=== PATIENT | male | born 1940 | race Caucasian/White ===

== ENCOUNTER 2017-05-26 08:34 | Outpatient (CLI) | payer MEDICARE ==
[2017-05-26] MEDS ORDERED: Iopamidol 370 76% 100 ML VIAL ONE (13:18)
--- NOTE | 2017-05-26 13:23 | CT ---
CT THORAX WITH IV CONTRAST: CT ABDOMEN AND PELVIS WITH IV CONTRAST: 05/26/2017 HISTORY: Follow up lung cancer as well as colon cancer. CEA numbers have increased. History of left lower l srinivasa removal, as well as colon resection. COMPARISON: PET CT on 09/10/[address] thorax on 08/26/[address] abdomen and pelvis on 08/22/2016. FINDINGS: THORAX: Post surgical changes related to median sternotomy and CABG are again noted. Post surgical changes related to a left lower lobectomy are noted with surgical changes in the left hilar region, with post surgical changes involving the left sided ribs. Previously noted left lower lobe mass is not seen related to left lobectomy. There has been interva l development of multiple bilateral pulmonary nodules, with the largest pulmonary nodule in the supe rior segment of the right lower lobe, measuring 9 mm. The largest pulmonary nodule seen in the left lower lobe measures 11 mm. There has been interval development of an enlarged subcarinal lymph node, which measures 5.1 cm cran iocaudal x 2.4 cm transverse x 1.4 cm AP. No additional enlarged mediastinal, axillary, or hilar ly mph nodes are seen. There are mild emphysematous changes in the upper lobes, greater on the right. ABDOMEN AND PELVIS: Again noted is cholelithiasis. Subcentimeter, [id number], hypodense lesion is seen in the right hepatic lobe, stable from the prior exam. Low density area seen within the more posterior aspect of the medial segment, left hepatic lobe, which is probably volume averaging, although a subtle subcentimeter hypodense le rafaela cannot be entirely excluded. There is a lobulated appearance of each kidney, but the kidneys otherwise have a normal and stable a ppearance from prior exam. The spleen, pancreas, bilateral adrenal glands, opacified bowel, and urinary bladder demonstrate a n ormal CT appearance. Again noted is evidence of post colon resection. Anastomosis is seen in the region of the rectosigm oid junction with small bowel colonic anastomosis in the right upper quadrant. 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 The prostate gland remains enlarged and heterogeneous in appearance. There are fat containing bilateral inguinal hernias again identified. Distal to the anastomotic suture line, within the rectosigmoid region, there is suggested eccentric thickening at the left aspect of the rectum. A developing neoplastic process in this region cannot be entirely excluded, given asymmetry, compared to the remainder of the wall of the remaining colon. A few scattered colonic diverticula are seen. IMPRESSION: 1. Mild eccentric thickening involving the left aspect of the rectum, below the anastomotic suture line. A developing neoplastic process in this region cannot be excluded. Direct visualization is s uggested. 2. Metastatic disease with interval development of multiple bilateral pulmonary nodules, as well as an enlarged subcarinal lymph node. 3. Post surgical changes related to left lower lobectomy, as well as post surgical changes related to coronary artery bypass grafting and partial colon resection. 4. Additional incidental findings are as described above. POS: [facility]
== END 2017-05-26 08:35 | disposition home or self-care (01) ==
LOC: CT 08:34
PROVIDERS: ATTEND Internal Medicine Hematology & Oncology
DX: C34.90 Malignant neoplasm of unspecified part of unspecified bronchus or lung (principal); C18.0 Malignant neoplasm of cecum
CPT/HCPCS: 71260; 74177

== ENCOUNTER → 2017-06-13 | Day surgery (SDC) | payer MEDICARE ==
[2017-06-12 16:58] VITALS: BMI 29.1
[~2017-06-13] MED LIST: CEFAZOLIN/Water 2 GM/20 ML SYRINGE ONE; Fentanyl 100 MCG/2 ML VIAL ONE; Glycopyrrolate 0.2 MG/ML 5 ML SYRINGE ONE; Lidocaine 1% PF 5 ML VIAL ONE; Ondansetron HCl/PF 4 MG/2 ML Vial ONE; Propofol 200 MG/20 ML VIAL ONE; ePHEDrine/0.9% NaCl/PF SYRINGE 50 mg/10 ml ONE
[2017-06-13 06:42] LABS: #Basophils 0.1 thou/uL (0.0-0.2); #Eosinphils 0.4 thou/uL (0.0-0.7); #Lymphocytes 1.2 thou/uL (1.20-3.40); #Monocytes 0.9 thou/uL (0.11-0.59); #Neutrophils 4.2 thou/uL (1.40-6.50); %Basophils 1.1 % (0.0-1.0); %Eosinophils 5.5 % (0.0-10.0); %Monocytes 13.3 % (0.0-10.0); Hematocrit 41.1 % (42.0-52.0); Mean Platelet Volume 6.1 fL (7.4-10.4); Red Blood Cell (RBC) Count 4.14 mill/uL (4.70-6.10); White Blood Cell (WBC) Count 6.7 thou/uL (4.8-10.8)
[2017-06-13 06:54] LABS: Anion Gap 13 mmol/L (10-20); BUN (Urea Nitrogen) 17 mg/dL (8.4-25.7); Calc. Creatinine Clearance 67 mL/min (70-130); Calcium 9.1 mg/dL (7.8-10.44); Carbon Dioxide 21 mmol/L (23-31); Chloride 103 mmol/L (98-107); Estimated GFR-MDRD 69
--- NOTE | 2017-06-13 12:01 | OP ---
PREOPERATIVE DIAGNOSIS: Subcarinal mediastinal adenopathy. POSTOPERATIVE DIAGNOSIS: Subcarinal mediastinal adenopathy. PROCEDURE: Cervical mediastinal exploration with biopsies. SURGEON: Skip Haas M.D. ANESTHESIA: General. ESTIMATED BLOOD LOSS: Less than 5 mL. PROCEDURE IN DETAIL: After adequate anesthesia had been obtained, the patient had a right shoulder r oll placed and the head was left on a pillow. He was prepped and draped. Suprasternal notch incisio n was then made and carried down through the midline bluntly and sharply to the level of the trachea where blunt finger dissection into the mediastinum was carried out. Mediastinoscope was then inserte d following which the dissection was carried down to the jeff. After identifying right and left ma in stem bronchi, lymph node was identified that was firm. It was mobilized to some degree with a kristi nt dissection and then after aspirating for blood. Multiple biopsies were obtained. Frozen section returned to carcinoma. Hemostasis was obtained and after checking this, the scope was removed and th e wound was closed in layers.
--- NOTE | 2017-06-18 08:37 | EKG ---
Test Reason : PREOP Blood Pressure : / mmHG Vent. Rate : 069 BPM Atrial Rate : 069 BPM P-R Int : 184 ms QRS Dur : 132 ms QT Int : 418 ms P-R-T Axes : 041 -37 112 degrees QTc Int : 447 ms Normal sinus rhythm Left axis deviation Non-specific intra-ventricular conduction block T wave abnormality, consider anterolateral ischemia Abnormal ECG When compared with ECG of 28-SEP-2016 17:11, QRS axis Shifted left Confirmed by Anne-Marie MARTÍNEZ ([id number]) on 06/18/2017 8:37:25 AM Referred By: MARÍA ELENA Confirmed By:Anne-Marie MARTÍNEZ
== END ==
LOC: SDC 05:52
PROVIDERS: ATTEND Thoracic Surgery (Cardiothoracic Vascular Surgery)
PROC: 0WBC4ZX Excision of Mediastinum, Percutaneous Endoscopic Approach, Diagnostic (ICD-10-PCS; principal; 2017-06-13)
DX: C38.3 Malignant neoplasm of mediastinum, part unspecified (principal); E11.9 Type 2 diabetes mellitus without complications; E78.5 Hyperlipidemia, unspecified; I10 Essential (primary) hypertension; J44.9 Chronic obstructive pulmonary disease, unspecified; Z79.84 Long term (current) use of oral hypoglycemic drugs; Z79.82 Long term (current) use of aspirin; Z79.899 Other long term (current) drug therapy; Z91.041 Radiographic dye allergy status; Z95.1 Presence of aortocoronary bypass graft; Z90.49 Acquired absence of other specified parts of digestive tract; Z90.2 Acquired absence of lung [part of]; Z98.890 Other specified postprocedural states; Z87.01 Personal history of pneumonia (recurrent); Z87.891 Personal history of nicotine dependence
CPT/HCPCS: 36415; 80048; 85025; 88307; 88331; 93005; 93010; J2001; J2405; J2704; J3010

== ENCOUNTER 2017-07-31 12:57 | Emergency (ER) | payer MEDICARE ==
[2017-07-31] MEDS ORDERED: predniSONE 20 MG TAB ONE (13:22)
--- NOTE | 2017-07-31 14:20 | RAD ---
CHEST TWO VIEWS: History: 77-year-old male with shortness of breath, difficulty breathing. History of COPD. History of colon ca rcinoma with metastases to both lungs. Comparison: Chest CT, 05-26-17. FINDINGS: Post underlying sternotomy. Numerous bilateral pulmonary metastases have increased in size and number from the prior CT of 05-26-17. Bilateral pleural effusions, slightly greater on the left side, have d eveloped. Mild cardiomegaly. Mild bilateral vascular congestion. IMPRESSION: Increase in size and number of multiple bilateral pulmonary metastases. Developing bilateral pleural effusions. Developing bilateral vascular congestion with minimal cardiomegaly. POS: [facility]
== END 2017-07-31 15:08 | disposition home or self-care (01) ==
LOC: SCSER 12:57
DX: C34.90 Malignant neoplasm of unspecified part of unspecified bronchus or lung (principal); J44.9 Chronic obstructive pulmonary disease, unspecified; E11.9 Type 2 diabetes mellitus without complications; E78.5 Hyperlipidemia, unspecified; I10 Essential (primary) hypertension; Z87.891 Personal history of nicotine dependence; E87.1 Hypo-osmolality and hyponatremia
CPT/HCPCS: 71046; 93005; 94640; J7506; J7620

== ENCOUNTER 2017-08-12 22:18 | Inpatient (IN) | payer MEDICARE ==
[2017-08-12 22:48] LABS: #Basophils 0.1 thou/uL (0.0-0.2); #Eosinphils 0.6 thou/uL (0.0-0.7); #Monocytes 1.1 thou/uL (0.11-0.59); #Neutrophils 6.2 thou/uL (1.40-6.50); %Basophils 1.5 % (0.0-1.0); %Eosinophils 6.4 % (0.0-10.0); %Lymphocytes 11.3 % (21.0-51.0); %Monocytes 11.9 % (0.0-10.0); %Neutrophils 68.8 % (42.0-75.0); Hemoglobin 14.9 g/dL (14.0-18.0); Mean Corpuscular HGB CONC 33.3 g/dL (32.0-36.0); Mean Corpuscular Hemoglobin 31.5 pg (27.0-31.0); Mean Corpuscular Volume 94.4 fl (80.0-94.0); Mean Platelet Volume 5.3 fL (7.4-10.4); Platelet Count 310 thou/uL (130-400); RBC Distribution Width 11.8 % (11.5-14.5); Red Blood Cell (RBC) Count 4.72 mill/uL (4.70-6.10)
--- NOTE | 2017-08-12 22:59 | RAD ---
PORTABLE CHEST: 08/12/17 HISTORY: Shortness of breath. Exam is suboptimal due to poor positioning and motion artifact. COMPARISON: Comparison made to chest film of 07/31/17. There is almost complete opacification of the left hemithorax seen on the current study which is a ne w finding when compared to the prior exam. There is cardiomegaly with vascular congestion and probabl y some interstitial edema in the right lung. Postop sternotomy change. IMPRESSION: Limited exam due to poor positioning and motion artifact. There is now new opacification in the left hemithorax when compared to the prior study. There are numerous nodular densities in the right lung w hich were described previously as probable metastatic lesions. Congestive changes are again noted. POS: [facility]
[2017-08-12 23:02] LABS: ALT (SGPT) 22 U/L (8-55); AST (SGOT) 14 U/L (5-34); Alkaline Phosphatase 63 U/L (40-150); Anion Gap 15 mmol/L (10-20); BUN (Urea Nitrogen) 14 mg/dL (8.4-25.7); Bilirubin, Total 0.3 mg/dL (0.2-1.2); CK (CPK) 52 U/L (30-200); Calc. Creatinine Clearance 0 mL/min (70-130); Calcium 9.5 mg/dL (7.8-10.44); Carbon Dioxide 26 mmol/L (23-31); Chloride 94 mmol/L (98-107); Estimated GFR-MDRD 64; Globulin 2.6 g/dL (2.4-3.5); Glucose 169 mg/dL (83-110); Potassium 4.6 mmol/L (3.5-5.1); Protein, Total 6.6 g/dL (5.8-8.1); Sodium 130 mmol/L (136-145)
[2017-08-12 23:03] LABS: CKMB 1.3 ng/mL (0-6.6); Troponin I Less than 0.010 ng/mL (< 0.028)
[2017-08-12] MEDS ORDERED: Furosemide 40 MG/4 ML VIAL ONE (23:42)
[2017-08-13] MEDS ORDERED: Ondansetron HCl/PF 4 MG/2 ML Vial IVP PRN ×2 (00:46→01:43)
[2017-08-13] MEDS ORDERED: Ondansetron ODT 4 MG TAB SL PRN (00:46)
[2017-08-13] MEDS ORDERED: Acetaminophen 325 MG TAB PO PRN ×2 (00:46→01:43)
[2017-08-13 01:02] VITALS: BMI 28.3
[2017-08-13] MEDS ORDERED: Insulin Regular 300 UNITS/3 ML VIAL SC PRN (01:43)
[2017-08-13] MEDS ORDERED: Nitroglycerin 0.4 MG TAB (25 Tab Bottle) PO PRN (01:43)
[2017-08-13] MEDS ORDERED: Ondansetron ODT 4 MG TAB PO PRN (01:43)
[2017-08-13] MEDS ORDERED: Dextrose 5% in Water 1,000 ML IV PRN (01:43)
[2017-08-13] MEDS ORDERED: Dextrose 50% Abboject 50 ML SYRINGE SLOW IVP PRN (01:43)
[2017-08-13] MEDS ORDERED: Senokot 8.6 MG TAB PO PRN (01:43)
[2017-08-13 02:29] LABS: Troponin I Less than 0.010 ng/mL (< 0.028)
[2017-08-13 05:00] LABS: #Basophils 0.1 thou/uL (0.0-0.2); #Eosinphils 0.6 thou/uL (0.0-0.7); #Lymphocytes 0.9 thou/uL (1.20-3.40); #Monocytes 1.2 thou/uL (0.11-0.59); #Neutrophils 7.4 thou/uL (1.40-6.50); %Basophils 0.6 % (0.0-1.0); %Eosinophils 5.8 % (0.0-10.0); %Lymphocytes 9.3 % (21.0-51.0); %Monocytes 11.6 % (0.0-10.0); %Neutrophils 72.7 % (42.0-75.0); Hemoglobin 13.9 g/dL (14.0-18.0); Mean Corpuscular HGB CONC 33.1 g/dL (32.0-36.0); Mean Corpuscular Hemoglobin 32.7 pg (27.0-31.0); Mean Corpuscular Volume 98.7 fl (80.0-94.0); Mean Platelet Volume 6.2 fL (7.4-10.4); Platelet Count 323 thou/uL (130-400); RBC Distribution Width 12.2 % (11.5-14.5); Red Blood Cell (RBC) Count 4.26 mill/uL (4.70-6.10); White Blood Cell (WBC) Count 10.1 thou/uL (4.8-10.8)
[2017-08-13 05:13] LABS: Albumin 3.7 g/dL (3.4-4.8); Anion Gap 15 mmol/L (10-20); BUN (Urea Nitrogen) 12 mg/dL (8.4-25.7); BUN/Creatinine Ratio 13.79; Calc. Creatinine Clearance 81 mL/min (70-130); Calcium 8.9 mg/dL (7.8-10.44); Carbon Dioxide 23 mmol/L (23-31); Chloride 96 mmol/L (98-107); Estimated GFR-MDRD 85; Glucose 156 mg/dL (83-110); Magnesium 1.8 mg/dL (1.6-2.6); Phosphorus 2.8 mg/dL (2.3-4.7); Potassium 3.7 mmol/L (3.5-5.1); Sodium 130 mmol/L (136-145)
--- NOTE | 2017-08-13 05:16 | HP ---
DATE OF ADMISSION: 08/12/2017 The patient was seen and examined on 08/13/2017 around 01:00 a.m. The patient got admitted from [facility] ER. CODE STATUS: FULL CODE, confirmed with the patient. SURROGATE DECISION-MAKER: Patient makes his own decisions with the help of his . CHIEF COMPLAINT: Shortness of breath of 2 weeks' duration. HISTORY OF PRESENT ILLNESS: The patient is a 77-year-old male with adenocarcinoma of the lung; coron rikki artery disease; diabetes mellitus, type 2; COPD with chronic respiratory failure, on home oxygen; presented to the emergency room at [place] with above complaints. The patient was seen in the emergency room on 08/10/2017 for similar complaint. A chest x-ray at [facility] t time showed multiple bilateral pulmonary metastases with developing bilateral pleural effusion. He was discharged home at that time. The patient returned to the emergency room today due to worsening shortness of breath that got worse over the last 2-3 days to the extent that he was short of breath at rest. He is normally on 3 liters oxygen. He tried increasing the oxygen to 5 liters without significant help. He also uses nebulize r treatment every 4 hours. He had some cough, which was essentially nonproductive. The shortness of breath was also worse on lying down. He was placed on nonrebreather in the emergency room. His O2 saturation in the ER was 76% on 4 liter nasal cannula. Chest x-ray done in the emergency room today was consistent with new opacification of the left hemithorax compared to the study from 12 days ago. He received Lasix 40 mg along with DuoNeb in the emergency room. PAST MEDICAL HISTORY: 1. Non-small cell lung cancer. 2. Chronic obstructive pulmonary disease. 3. Chronic respiratory failure, on home oxygen 3-3.5 liters. 4. Hypertension. 5. Diabetes mellitus, type 2. 6. Colon cancer, status post colectomy. 7. Hypertension. 8. Dyslipidemia. PAST SURGICAL HISTORY: 1. CABG in 1992 with redo CABG in 2002. 2. Appendectomy. 3. Herniography. 4. Cardiac catheterization. 5. Left inguinal hernia repair. 6. Laparoscopic partial colectomy in 07/2016. 7. Left lower lobectomy in 09/2016.. 8. Mediastinal exploration with biopsy in 05/2017. ALLERGIES: The patient is allergic to IODINE. CURRENT HOME MEDICATIONS: Amlodipine 2.5 mg daily, aspirin 81 mg daily, carvedilol 12.5 mg b.i.d., Z yrtec 10 mg daily, vitamin D3 2000 units daily, glucosamine 1 capsule daily, lisinopril 5 mg at bedti me, metformin 500 mg b.i.d., multivitamin 1 tablet daily, Actos 30 mg daily, simvastatin 10 mg at bed time, Incruse Ellipta 1 inhalation daily. SOCIAL HISTORY: Patient currently lives at home, is a former smoker. No alcohol or drug use. FAMILY HISTORY: Negative for premature coronary artery disease. REVIEW OF SYSTEMS: The following complete review of systems was negative, unless otherwise mentioned in the HPI or below: Constitutional: Weight loss or gain, ability to conduct usual activities. Sk in: Rash, itching. Eyes: Double vision, pain. ENT/Mouth: Nose bleeding, neck stiffness, pain, te nderness. Cardiovascular: Palpitations, dyspnea on exertion, orthopnea. Respiratory: Shortness of breath, wheezing, cough, hemoptysis, fever, or night sweats. Gastrointestinal: Poor appetite, abdo eugenio pain, heartburn, nausea, vomiting, constipation, or diarrhea. Genitourinary: Urgency, frequen cy, dysuria, nocturia. Musculoskeletal: Pain, swelling. Neurologic/Psychiatric: Anxiety, depressi on. Allergy/Immunologic: Skin rash, bleeding tendency. PHYSICAL EXAMINATION: VITAL SIGNS: As discussed above. His temperature was 97.8, respirations 24, pulse rate of 80 with a blood pressure 157/84. GENERAL: A 77-year-old male in mild respiratory distress, able to complete short sentences. Overall , feels better after ER treatment. HEENT: Head atraumatic, normocephalic. Sclerae are anicteric. Moist mucous membranes. No oral les ion. NECK: Supple, no JVD appreciated. No carotid bruit. LUNGS: Showed decreased breath sounds on the left with scattered rhonchi mainly on the right. No si gnificant wheezing noted. There was decreased chest movement on the left. They were done notes on p ercussion on the left. HEART: S1, S2 present. Regular rate and rhythm. Healed midline scar from previous CABG. No heaves or pulsation. ABDOMEN: Soft, nontender, bowel sounds present. EXTREMITIES: No edema or calf tenderness. NEUROLOGIC: Grossly nonfocal, moves all 4 extremities. PSYCHIATRY: Alert, awake, oriented x3. SKIN: Warm and dry. LYMPH NODES: No palpable lymph nodes in the neck. PERIPHERAL VASCULAR: Radial pulses palpable bilaterally. MUSCULOSKELETAL: No joint swelling or tenderness. LABORATORY FINDINGS: CBC showed WBC 9.0 with hemoglobin 14.9, hematocrit 44.5, platelet 310. Chemis tries showed sodium 130, potassium 4.6, chloride 94, bicarbonate 26, BUN 14, creatinine 1.12, glucose of 169. Chest x-ray, by my review, as discussed above. EKG, by my review, showed sinus rhythm with left axis deviation with some nonspecific ST-T wave changes. IMPRESSION AND PLAN: 1. Acute on chronic hypoxic respiratory failure secondary to left-sided pleural effusion. 2. History of lung adenocarcinoma, followed by Dr. De La Rosa. 3. Coronary artery disease, status post myocardial infarction and coronary artery bypass grafting in the past. 4. Hypertension. 5. Diabetes mellitus, type 2. 6. Chronic obstructive pulmonary disease. 7. Chronic respiratory failure, on 3-3.5 liters oxygen. 8. Chronic anemia. 9. History of colon cancer, status post resection. 10. Hyponatremia. 11. Chronic kidney disease, stage 2. PLAN: The patient will be monitored in the intermediate care unit. We will continue nonrebreather f or now. The patient may need intermittent noninvasive positive pressure ventilation. We will consul t Dr. Scott in a.m. He will probably get thoracentesis. Pleural effusion appears to be malignant. We will hold aspirin for now. Insulin sliding scale will be started. Selected home medications will be resumed. We will hold diuretics for now. He received a dose of Lasix in the emergency room. Co ntinue carvedilol. Plan of care was discussed with the patient. He stated understanding. The patie nt will require 2-3 days for stabilization.
[2017-08-13] MEDS: Insulin Regular 300 UNITS/3 ML VIAL SC PRN (06:17)
[2017-08-13] MEDS ORDERED: Ipratropium Bromide 2.5 ml Neb NEB SCH (07:00)
[2017-08-13] MEDS: Loratadine 10 MG TAB PO SCH (08:36)
[2017-08-13] MEDS: Multivit, Therapeutic 1 TAB PO SCH (08:36)
[2017-08-13] MEDS: Famotidine 20 MG TAB PO SCH ×2 (08:37→21:46)
[2017-08-13] MEDS: Amlodipine 5 MG TAB PO SCH (08:37)
[2017-08-13] MEDS: Docusate 100 MG CAP PO SCH ×2 (08:38→21:46)
[2017-08-13] MEDS: Carvedilol 6.25 MG TAB PO SCH ×2 (08:38→15:57)
[2017-08-13] MEDS ORDERED: Non-Formulary Item 1 EACH (Umeclidinium Bromide [Incruse Ellipta] 1 INH) IH SCH (09:00)
[2017-08-13] MEDS ORDERED: guaiFENesin/Codeine Phosphate 200 mg/20 mg 10 ml UD Cup PO PRN (13:12)
[2017-08-13] MEDS ORDERED: cefTRIAXone\\ROCEPHIN 1 GM in Sodium Chloride 0.9% 100 ML IVPB SCH (14:45)
[2017-08-13] MEDS ORDERED: diphenhydrAMINE 50 MG CAP PO SCH (15:45)
[2017-08-13] MEDS ORDERED: cefTRIAXone\\ROCEPHIN 1 GM, Syringe 0.4 ML in Sterile Water 9.6 ML SLOW IVP SCH ×2 (16:00→21:00)
[2017-08-13] MEDS ORDERED: Lisinopril 5 MG TAB PO SCH (21:00)
[2017-08-13] MEDS ORDERED: Simvastatin 20 MG TAB PO SCH (21:00)
--- NOTE | 2017-08-14 00:30 | CON ---
DATE OF CONSULTATION: 08/13/2017 SUBJECTIVE: Mr. Lorenzana is a pleasant 77-year-old male. I met with the and asked to get history from her. He was recently in the hospital for evaluatio n in the emergency department with complaints of shortness of breath. He was sent home and has had p rogressive decline in his dyspnea. He has been seen by me in the past after a lung mass was found during workup for colon cancer. Lung mass was resected after colon cancer was resected. He subsequently presented with mediastinal metastasis and worked up with mediastinal. It was felt to have multiple pulmonary nodules in both lungs that were all malignant. Last chest radiograph showed this. He presented this admission with dyspnea and hypoxemia. Chest ra diograph shows what appears to be atelectasis of the left lung, although it is difficult to say wheth er this is atelectasis or an effusion. His trachea is pulled to the left, I am guessing it is atelec tasis. It would be very unusual for a massive effusion reaccumulate in less than 2 weeks. PAST MEDICAL HISTORY: Remarkable for hypertension, diabetes, lipid disorder, coronary artery bypass grafting in 1992 and 2002, appendectomy, herniorrhaphy, colectomy in 08/09, left lower lobectomy in 0 09/2016, this was a T2 M0 tumor, this is a a 6 cm tumor, but was noted negative. On 05/2017, he had a CME. He reports allergy to IODINE. He was on amlodipine, aspirin, Coreg, Zyrtec, glucosamine, vitamin D, lisinopril, metformin, Actos, s imvastatin, Incruse. SOCIAL HISTORY: He is a former smoker, does not drink, does not use drugs. FAMILY HISTORY: Negative for lung disease at an early age. REVIEW OF SYSTEMS: Remarkable only for shortness of breath on exertion and a cough. He has had no f ever, chills, sweats. He denies hemoptysis. PHYSICAL EXAMINATION: VITAL SIGNS: He is afebrile, heart rate is 92, blood pressure 129/81, respiratory rate teens to low 20s, oximetry 100% on 3 liters. HEENT: Pupils are equal. Sclerae is anicteric. NECK: Supple. LUNGS: Remarkable for distant breath sounds on the left. HEART: Regular rhythm. S1 and S2 are normal. ABDOMEN: Soft and nontender. EXTREMITIES: Without asymmetry. LABORATORY DATA: White count 10.1, hemoglobin 13.9, platelets 323. Sodium 130, potassium 3.7, chlor patricia 96, bicarbonate 23, BUN 12, creatinine 0.87. IMPRESSION: 1. Metastatic lung cancer. 2. T4M0 colon cancer, resected. 3. ?Atelectasis of left lung. CT imaging after he gets prophylaxis for an IODINE allergy, will be t he next step, workup will be entertained. He tells me there is no treatment plan. He has been unabl e to get approval for Keytruda. I would be happy to see him while he is in the hospital and evaluate him for endobronchial obstruction. I doubt this is a massive effusion. If it is, he will need obvi ously thoracentesis and perhaps even a pleural drainage catheter. This is a 50 minute consult, greater than 50% of the time was spent on the unit coordinating care, re viewing records from radiographs and labs.
[2017-08-14] MEDS ORDERED: predniSONE 50 MG TAB PO SCH (04:00)
[2017-08-14 04:21] LABS: #Basophils 0.1 thou/uL (0.0-0.2); #Lymphocytes 0.6 thou/uL (1.20-3.40); #Monocytes 0.2 thou/uL (0.11-0.59); #Neutrophils 7.4 thou/uL (1.40-6.50); %Basophils 0.6 % (0.0-1.0); %Eosinophils 0.4 % (0.0-10.0); %Neutrophils 89.9 % (42.0-75.0); Hemoglobin 14.9 g/dL (14.0-18.0); Mean Corpuscular HGB CONC 33.8 g/dL (32.0-36.0); Mean Corpuscular Hemoglobin 33.8 pg (27.0-31.0); Mean Corpuscular Volume 99.9 fl (80.0-94.0); Mean Platelet Volume 6.3 fL (7.4-10.4); Platelet Count 343 thou/uL (130-400); RBC Distribution Width 12.3 % (11.5-14.5); White Blood Cell (WBC) Count 8.2 thou/uL (4.8-10.8)
[2017-08-14 04:49] LABS: Albumin 4.2 g/dL (3.4-4.8); Anion Gap 15 mmol/L (10-20); BUN (Urea Nitrogen) 14 mg/dL (8.4-25.7); BUN/Creatinine Ratio 16.87; Calc. Creatinine Clearance 81 mL/min (70-130); Calcium 9.7 mg/dL (7.8-10.44); Carbon Dioxide 23 mmol/L (23-31); Chloride 96 mmol/L (98-107); Estimated GFR-MDRD 90; Glucose 181 mg/dL (83-110); Phosphorus 2.8 mg/dL (2.3-4.7); Potassium 4.4 mmol/L (3.5-5.1); Sodium 130 mmol/L (136-145)
[2017-08-14] MEDS: Insulin Regular 300 UNITS/3 ML VIAL SC PRN ×2 (06:31→10:58)
[2017-08-14] MEDS: Famotidine 20 MG TAB PO SCH (07:57)
[2017-08-14] MEDS: Carvedilol 6.25 MG TAB PO SCH (07:57)
[2017-08-14] MEDS: Amlodipine 5 MG TAB PO SCH (07:58)
[2017-08-14] MEDS: Multivit, Therapeutic 1 TAB PO SCH (07:58)
[2017-08-14] MEDS: Docusate 100 MG CAP PO SCH (07:58)
[2017-08-14] MEDS: Loratadine 10 MG TAB PO SCH (07:58)
--- NOTE | 2017-08-14 10:29 | CT ---
PRELIMINARY REPORT/[facility]/EMERGENCY AFTER HOURS PROCEDURE: EXAM: CT Angiography Chest With Intravenous Contrast EXAM DATE/TIME: Exam ordered 08/14/2017 5:04 AM CLINICAL HISTORY: 77 years old, male; Signs and symptoms; Shortness of breath; Patient HX: SOB, R/O pe TECHNIQUE: Axial computed tomographic angiography images of the chest with intravenous contrast using pulmonary embolism protocol. CONTRAST: 100 mL of ISOVUE administered intravenously. COMPARISON: No relevant prior studies available. FINDINGS: Pulmonary arteries: There is no evidence of peripheral filling defects within the pulmonary arterial circulation to suggest pulmonary embolism. Aorta: The aorta is normal. There is no evidence of aortic dissection, leak, rupture, or other compli cations. Lungs: There are innumerable pulmonary nodules consistent with lung metastases. Moderate centrilobula r emphysematous changes are present. Pleural space: Normal. No significant effusion. No pneumothorax. Heart: Normal. No cardiomegaly. No significant pericardial effusion. No evidence of RV dysfunction. Thyroid: The thyroid gland is normal. Bones/joints: No acute fracture. No dislocation. Soft tissues: Normal. Lymph nodes: Pathologically enlarged mediastinal lymph nodes are present. For example there is a 1.4 cm RIGHT paratracheal lymph node. There is also a 1.7 x 3.2 cm subcarinal/anterior tracheal region po ssibly representing enlarged lymph node or duplication cyst. Gallbladder and bile ducts: A calcified gallstone is present. IMPRESSION: 1. There is no CT evidence of acute pulmonary embolism. 2. There are innumerable pulmonary nodules consistent with lung metastases. 3. Mediastinal lymphadenopathy as above. Thank you for allowing us to participate in the care of your patient. Dictated and Authenticated by: Franklyn Cisneros MD 08/14/2017 5:42 AM Central Time ([place] & [place]) FINAL REPORT EMERGENCY AFTER HOURS CT ANGIO CHEST: Date: 08/14/17 FINDINGS: I agree with the preliminary report given by [facility]. No definite central or segmental pulmonary embolus is grossly evident. Motion artifact from breathing slightly limits image detail of the segmental pul monary vasculature of both lower lobes as well as portions of the lingula and right middle lobe. Ther e are numerous pulmonary nodules seen throughout both lungs that have [facility] consistent with worsening metastatic disease. There is worsening ly mphadenopathy within the mediastinum and hilar region suspicious for worsening, malignant lymphadenop athy. There are small bilateral pleural effusions that have developed in the interim. Gallstone is se en within the upper abdomen within the gallbladder lumen. IMPRESSION: 1. No evidence to suggest central pulmonary embolus. Some limitations to the CT examination of the t horax as detailed above. 2. Worsening pulmonary metastatic disease and mediastinal lymphadenopathy. 3. Cholelithiasis. 4. New bilateral pleural effusions, left greater than right. POS: [facility]
[2017-08-14 11:11] VITALS: BP 133/81; TEMP 97.2
--- NOTE | 2017-08-14 13:23 | PRG ---
DATE OF SERVICE: 08/14/[address] was reviewed. By this morning his atelectasis of his left lung had resolved. Mu ltiple pulmonary nodules and small bilateral effusions were noted. He says he feels 100% better. He is stable for him to go home with nebulized ipratropium and albuter ol 4 times a day, prednisone 40 mg for 4 days, 20 for 6 days, and 10 mg for 10 days, p.o. antibiotics , Ceftin 250 mg twice a day, Restoril 15mg for sleep since he cannot sleep when he is on steroids. I will see him in the office in 1 week.
--- NOTE | 2017-08-15 10:25 | DIS ---
DATE OF DISCHARGE: 08/14/2017 DISCHARGE DISPOSITION: Home. FOLLOWUP: Follow up with primary care physician, Dr. Chris Coon in 1 week. Follow up with Dr. Pringle after a week. ALLERGIES: The patient is allergic to IODINE. DISCHARGE MEDICATIONS: 1. Prednisone as directed. 2. Ceftin 250 mg b.i.d. 3. DuoNeb as needed. 4. Restoril as needed. 5. Other home medications were resumed including amlodipine 2.5 mg daily, aspirin 81 mg daily, carve dilol 12.5 mg b.i.d., Zyrtec 10 mg daily, vitamin D3 2000 units daily, glucosamine 1 tablet daily, li sinopril 5 mg at bedtime, Metformin extended release 500 mg b.i.d., multivitamin 1 capsule daily, Act os 30 mg daily, simvastatin 10 mg at bedtime, Incruse 62.5 mcg inhalation daily. The patient was seen on the day of discharge, denies any new complaints, feels much better. His oxyg en saturation is 99% on 3 liter nasal cannula with a blood pressure of 133/81. BRIEF HOSPITAL COURSE: The patient is a 77-year-old male with adenocarcinoma of the lung, coronary a rtery disease, diabetes mellitus type 2, COPD with chronic respiratory failure, on home oxygen, prese nted to the hospital with shortness of breath of 2 weeks' duration. His chest x-ray on admission stacey wed left-sided pleural effusion. Please refer to the history and physical dated 08/10/2017 for furth er details. The patient was admitted to the Intermediate Care Unit with a diagnosis of respiratory failure. He w as started on nebulizer treatment. The next day the patient was evaluated by Pulmonary, Dr. Scott. He was started on steroids with antibiotics. A CT scan of the chest was done that showed worsening o f pulmonary metastatic disease with mediastinal lymphadenopathy with new bilateral pleural effusions, left greater than right. His symptoms have significantly improved. Dr. Scott has cleared the patie nt for discharge. He will follow up with Dr. Scott next week. FINAL DIAGNOSES: 1. Acute on chronic hypoxic respiratory failure secondary to left-sided pleural effusion, improved. There was no need for thoracentesis per Pulmonary. 2. History of lung adenocarcinoma followed by Dr. De La Rosa. 3. Coronary artery disease, status post myocardial infarction and coronary artery bypass graft in th e past. 4. Hypertension. 5. Diabetes mellitus type 2. 6. Chronic obstructive pulmonary disease. 7. Chronic respiratory failure on 3 to 3-1/2 liters of oxygen. 8. Chronic anemia. 9. History of colon cancer, status post resection. 10. Hyponatremia. 11. Chronic kidney disease stage 2. Plan of care was discussed with the patient in detail. He stated understanding.
== END 2017-08-14 13:29 | disposition home or self-care (01) | DRG 189 ==
LOC: SCSER 22:18 → IMCU/EMU 23:11
PROVIDERS: ADMIT Internal Medicine; ATTEND Internal Medicine
DX: J96.21 Acute and chronic respiratory failure with hypoxia (principal); C78.1 Secondary malignant neoplasm of mediastinum; C77.8 Secondary and unspecified malignant neoplasm of lymph nodes of multiple regions; C34.91 Malignant neoplasm of unspecified part of right bronchus or lung; Z99.81 Dependence on supplemental oxygen; J90 Pleural effusion, not elsewhere classified; D64.9 Anemia, unspecified; C34.92 Malignant neoplasm of unspecified part of left bronchus or lung; E87.1 Hypo-osmolality and hyponatremia; J98.11 Atelectasis; J44.9 Chronic obstructive pulmonary disease, unspecified; E11.9 Type 2 diabetes mellitus without complications; N18.2 Chronic kidney disease, stage 2 (mild); I12.9 Hypertensive chronic kidney disease with stage 1 through stage 4 chronic kidney disease, or unspecified chronic kidney disease; I25.10 Atherosclerotic heart disease of native coronary artery without angina pectoris; I25.2 Old myocardial infarction; E78.5 Hyperlipidemia, unspecified; Z85.038 Personal history of other malignant neoplasm of large intestine; Z90.49 Acquired absence of other specified parts of digestive tract; Z95.1 Presence of aortocoronary bypass graft; Z91.09 Other allergy status, other than to drugs and biological substances; Z79.82 Long term (current) use of aspirin
CPT/HCPCS: 36415; 36416; 71045; 71275; 80053; 80069; 82553; 83735; 84484; 85025; 93005; 94640; 96374; A4216; J0696; J1940; J7620

== ENCOUNTER 2017-08-22 10:03 | Outpatient (CLI) | payer MEDICARE ==
--- NOTE | 2017-08-22 11:05 | RAD ---
CHEST TWO VIEWS: History: Dyspnea. Comparison: 08-12-17 FINDINGS: Cardiac silhouette is enlarged. Pulmonary vasculature remains slightly engorged. Left pleural fluid h as decreased significantly since the prior study with re-aeration of the left lung. Mediastinum is mi dline with aortic calcification and post-operative changes. Patchy areas of infiltrate throughout the right lung have increased slightly. There is a small amount of right pleural fluid. IMPRESSION: 1. Significant internal decrease left pleural fluid with re-expansion of the left lung. 2. Patchy infiltrate throughout the right lung has progressed slightly. Small right pleural effusion. POS: [facility]
== END 2017-08-22 10:04 | disposition home or self-care (01) ==
LOC: RAD 10:03
PROVIDERS: ATTEND Internal Medicine Critical Care Medicine
DX: R06.00 Dyspnea, unspecified (principal); R91.8 Other nonspecific abnormal finding of lung field; J90 Pleural effusion, not elsewhere classified
CPT/HCPCS: 71046

== ENCOUNTER 2017-08-30 19:28 | Inpatient (IN) | payer MEDICARE, OTHER ==
[2017-08-30 20:20] LABS: #Basophils 0.1 thou/uL (0.0-0.2); #Lymphocytes 0.5 thou/uL (1.20-3.40); #Monocytes 0.4 thou/uL (0.11-0.59); #Neutrophils 8.1 thou/uL (1.40-6.50); %Basophils 0.6 % (0.0-1.0); %Eosinophils 0.4 % (0.0-10.0); %Lymphocytes 5.3 % (21.0-51.0); %Monocytes 4.7 % (0.0-10.0); %Neutrophils 88.9 % (42.0-75.0); Hemoglobin 14.3 g/dL (14.0-18.0); Mean Corpuscular HGB CONC 34.3 g/dL (32.0-36.0); Mean Corpuscular Hemoglobin 32.7 pg (27.0-31.0); Mean Corpuscular Volume 95.3 fl (80.0-94.0); Mean Platelet Volume 6.4 fL (7.4-10.4); Platelet Count 274 thou/uL (130-400); Red Blood Cell (RBC) Count 4.37 mill/uL (4.70-6.10); White Blood Cell (WBC) Count 9.1 thou/uL (4.8-10.8)
[2017-08-30 20:32] LABS: ALT (SGPT) 15 U/L (8-55); AST (SGOT) 10 U/L (5-34); Albumin 3.5 g/dL (3.4-4.8); Alkaline Phosphatase 59 U/L (40-150); Anion Gap 13 mmol/L (10-20); BUN (Urea Nitrogen) 17 mg/dL (8.4-25.7); Bilirubin, Total 0.4 mg/dL (0.2-1.2); Calc. Creatinine Clearance 0 mL/min (70-130); Calcium 8.9 mg/dL (7.8-10.44); Carbon Dioxide 29 mmol/L (23-31); Chloride 93 mmol/L (98-107); Estimated GFR-MDRD Greater than 90; Globulin 2.5 g/dL (2.4-3.5); Glucose 212 mg/dL (83-110); Potassium 4.7 mmol/L (3.5-5.1); Sodium 130 mmol/L (136-145)
[2017-08-30 20:36] LABS: CKMB 1.4 ng/mL (0-6.6); Troponin I Less than 0.010 ng/mL (< 0.028)
--- NOTE | 2017-08-30 21:16 | RAD ---
TWO VIEW CHEST: 08/30/17 HISTORY: Dyspnea. Correlation made to recent chest film of 08/22/[address] of 08/14/17. FINDINGS/IMPRESSION: The left pleural effusion has increased since the 08/22/17 exam. There is now moderately large left pl eural effusion. There continues to be bilateral patchy alveolar infiltrates. These were present previously but appear s slightly more extensive today especially in the right mid and lower lung field. POS: [facility]
[2017-08-30 23:27] VITALS: BMI 29.8
[2017-08-31 00:15] LABS: Troponin I Less than 0.010 ng/mL (< 0.028)
[2017-08-31 02:42] LABS: Troponin I Less than 0.010 ng/mL (< 0.028)
--- NOTE | 2017-08-31 05:46 | PDOC.EVN ---
Event Note - Event Note Event Note: Patient seen and examined. Note dicated. Full code. DPAO - self/family
[2017-08-31] MEDS ORDERED: Ondansetron ODT 4 MG TAB PO PRN (05:51)
[2017-08-31] MEDS ORDERED: Calcium Carbonate 500 MG ChewTAB PO PRN (05:51)
[2017-08-31] MEDS ORDERED: Nitroglycerin 0.4 MG TAB (25 Tab Bottle) PO PRN (05:51)
[2017-08-31] MEDS ORDERED: Ondansetron HCl/PF 4 MG/2 ML Vial IVP PRN (05:51)
[2017-08-31] MEDS ORDERED: cloNIDine 0.1 MG TAB PO PRN (05:55)
--- NOTE | 2017-08-31 06:10 | HP ---
DATE OF ADMISSION: 08/30/2017 PRIMARY CARE PHYSICIAN: Dr. Chris Coon. PRIMARY INFORMATION SYSTEMS AUDITOR: Dr. Scott. CHIEF COMPLAINT: Shortness of breath. HISTORY OF PRESENT ILLNESS: Patient is a 77-year-old male with COPD, chronic respiratory failure on home oxygen, non-small cell lung cancer who presented to the emergency room with worsening shortness of breath over the last 3-4 days duration. Patient was admitted at this facility from 08/12/2017 to 08/14/2017 with shortness of breath. He was discharged home on prednisone taper. Over the last 2-3 weeks, the patient has shortness of breath that is progressively getting worse. Ov er the last 2-3 days, the patient is not able to move around due to oxygen desaturation. He has been spending most of his time on the recliner. He also had some cough productive of thick whitish phleg m. He also had wheezing along with some chest tightness. He denies any orthopnea or paroxysmal noct urnal dyspnea. He had some leg swelling, especially towards the end of the day. He denies any sick contacts or fever. In the emergency room, his chest x-ray was consistent with left pleural effusion that has increased s maria elena 08/22/2017 exam. He also had some bilateral patchy alveolar infiltrates, which were present pre viously, but appeared more extensive on the repeat x-ray today. He received DuoNeb in the emergency room. PAST MEDICAL HISTORY: 1. Non-small cell lung cancer, currently followed by Dr. De La Rosa. 2. Chronic obstructive pulmonary disease. 3. Chronic respiratory failure, on home oxygen 3-3.5 liters. 4. Hypertension. 5. Diabetes mellitus type 2. 6. Colon cancer, status post colectomy. 7. Dyslipidemia. PAST SURGICAL HISTORY: 1. Coronary artery bypass grafting in 1992 with a redo CABG in 2002. 2. Hernia surgery. 3. Appendectomy. 4. Cardiac catheterization. 5. Inguinal hernia repair. 6. Laparoscopic partial colectomy. 7. Left lower lobectomy. 8. Mediastinal exploration with biopsy. ALLERGIES: Patient is allergic to IODINE. CURRENT HOME MEDICATIONS: Per [facility], amlodipine 2.5 mg daily, aspirin 81 mg daily, carvedilol 12. 5 mg b.i.d., Zyrtec 10 mg daily, vitamin D3 2000 units daily, glucosamine 1 capsule daily, DuoNeb as needed, lisinopril 5 mg at bedtime, metformin 500 mg b.i.d., multivitamin 1 tablet daily, Actos 30 mg daily, prednisone dose unavailable, simvastatin 10 mg at bedtime, Incruse Ellipta 62.5 mcg daily, te mazepam 15 mg at bedtime p.r.n. SOCIAL HISTORY: Patient currently lives at home. He is a former smoker. Denies any alcohol or drug use. FAMILY HISTORY: Negative for premature coronary artery disease. REVIEW OF SYSTEMS: The following complete review of systems was negative, unless otherwise mentioned in the HPI or below: Constitutional: Weight loss or gain, ability to conduct usual activities. Skin: Rash, itching. Eyes: Double vision, pain. ENT/Mouth: Nose bleeding, neck stiffness, pain, tenderness. Cardiovascular: Palpitations, dyspnea on exertion, orthopnea. Respiratory: Shortness of breath, wheezing, cough, hemoptysis, fever or night sweats. Gastrointestinal: Poor appetite, abdominal pain, heartburn, nausea, vomiting, constipation, or diarr hea. Genitourinary: Urgency, frequency, dysuria, nocturia. Musculoskeletal: Pain, swelling. Neurologic/Psychiatric: Anxiety, depression. Allergy/Immunologic: Skin rash, bleeding tendency. PHYSICAL EXAMINATION: VITAL SIGNS: As discussed above. GENERAL: A 77-year-old male in no apparent distress. Feels somewhat better after nebulizer treatmen t. HEENT: Head is atraumatic, normocephalic. Sclerae are anicteric. Moist mucous membranes. No oral lesion. NECK: Supple, no JVD appreciated. No carotid bruit. LUNGS: Showed expiratory wheezing, which is scattered with diminished air entry at bases, left more than right. CARDIOVASCULAR: Heart S1, S2 present. Regular rate and rhythm. No rubs or gallops appreciated. He aled midline scar from previous CABG. ABDOMEN: Soft, nontender, bowel sounds present. EXTREMITIES: Trace edema in bilateral lower extremities. SKIN: Warm and dry. LYMPH NODES: No palpable lymph nodes in the neck. PERIPHERAL VASCULAR: Radial pulses palpable bilaterally. MUSCULOSKELETAL: No joint swelling or tenderness. LABORATORY DATA AND X-RAY FINDINGS: 1. CBC showed WBC of 9.1 with hemoglobin 14.3, hematocrit 41.7, platelet of 274. 2. D-dimer was 1.59. Chemistries showed sodium 130, potassium 4.7, chloride 93, bicarbonate 29, BUN 17, creatinine 0.8. 3. Troponins were negative. 4. Chest x-ray by my review as discussed above. EKG by my review showed sinus rhythm with nonspecif ic ST-T wave changes. IMPRESSION: 1. Respiratory distress secondary to chronic obstructive pulmonary disease exacerbation. 2. Left-sided pleural effusion. 3. Lung adenocarcinoma followed by Dr. De La Rosa. 4. Coronary artery disease, status post myocardial infarction and coronary artery bypass graft in past. 5. Diabetes mellitus type 2. 6. Chronic respiratory failure, on home oxygen. 7. Hypertension. 8. Chronic anemia. 9. History of colon cancer, status post resection. 10. Chronic hyponatremia. 11. Chronic kidney disease stage 3. PLAN: The patient is currently admitted on the telemetry unit. Home medications will be resumed. Nataly Scott will be consulted. Nebulizer treatments. We will resume home dose of prednisone. We will hold IV steroids for now. Hold antibiotics for now. Plan of care was discussed with the patient in detail. He stated understanding.
--- NOTE | 2017-08-31 08:27 | ULT ---
EXAM: BILATERAL LOWER EXTREMITY VENOUS ULTRASOUND WITH DOPPLER: HISTORY: Leg edema. COMPARISON: None. TECHNIQUE: Sneed scale, color flow, Doppler imaging with spectral waveform analysis is performed of the left and right lower extremity system. FINDINGS: Bilaterally, there is compressibility, presence of flow, and augmentation in the common femoral vein, femoral vein, and proximal vein. There is flow in bilateral greater saphenous veins, profunda veins , and posterior tibial veins. IMPRESSION: No evidence of thrombus of right or left lower extremity venous system. POS: DUSTY
[2017-08-31] MEDS: Amlodipine 5 MG TAB PO SCH (08:52)
[2017-08-31] MEDS: Pioglitazone HCl 15 MG TAB PO SCH (08:52)
[2017-08-31] MEDS: metFORMIN XR 500 MG TAB PO SCH ×2 (08:52→20:35)
[2017-08-31] MEDS: Carvedilol 6.25 MG TAB PO SCH ×2 (08:52→18:36)
[2017-08-31] MEDS: predniSONE 20 MG TAB PO SCH (08:53)
[2017-08-31] MEDS: Aspirin 81 mg Enteric Coated Tablet PO SCH (08:53)
[2017-08-31] MEDS: Docusate 100 MG CAP PO SCH ×2 (08:53→20:35)
[2017-08-31] MEDS: Famotidine 20 MG TAB PO SCH ×2 (08:53→20:35)
[2017-08-31] MEDS: Loratadine 10 MG TAB PO SCH (08:53)
[2017-08-31] MEDS: Multivitamin W/ Minerals 1 TAB PO SCH (08:53)
[2017-08-31] MEDS ORDERED: VIT C CA PO SCH (09:00)
[2017-08-31] MEDS ORDERED: Non-Formulary Item 1 EACH (Umeclidinium Bromide [Incruse Ellipta] 1 INH) IH SCH (09:00)
[2017-08-31] MEDS ORDERED: GLUC SU PO SCH (09:00)
[2017-08-31] MEDS ORDERED: CHONDRO SU A PO SCH (09:00)
[2017-08-31] MEDS ORDERED: [UNRECOGNIZED DRUG - OTHER] PO SCH (09:00)
[2017-08-31] MEDS ORDERED: Cetirizine HCl 10 MG TAB PO SCH (09:00)
--- NOTE | 2017-08-31 15:55 | PDOC.EVN ---
Event Note - Event Note Event Note: Chart reviewed. Pt seen, will follow.
[2017-08-31] MEDS ORDERED: Lidocaine 1% (PF) 30 ML VIAL ONE (17:12)
[2017-08-31 19:10] LABS: BF Color Yellow; BF RBC Count - Manual 1875 /cumm; Body Fluid Source PLEURAL FLUID; Clarity Hazy (Clear); RBC Background Count 0.004; Tube # EDTA; WBC/NonHematic-Auto 501 /cumm
[2017-08-31 19:27] LABS: BF Segmented Neutrophils 22 %; Cell Count Non Hematic 38 %; Lymphocytes 40 %
--- NOTE | 2017-08-31 20:08 | CON ---
DATE OF CONSULTATION: 08/31/2017 SERVICE: Pulmonary Medicine. REASON FOR CONSULTATION: Pleural effusion. HISTORY OF PRESENT ILLNESS: The patient is a 77-year-old white male with past medical history significant for COPD and adenocarcinoma of the lung, which is widely metastatic. He has had a pleural effusion that has been present on a couple of imaging studies and progressively getting larger. The patient also notes increasing dyspnea with exertion. He had episodes of hypoxemia and was subsequently brought to the hospital. He has been given some nebulized medications and steroids. He has had a significant improvement in his breathing. Overall, he denies any fevers, chills, nausea, vomiting or chest discomfort. PAST MEDICAL HISTORY: 1. Adenocarcinoma of the lung, widely metastatic. 2. Chronic obstructive pulmonary disease. 3. Chronic hypoxic respiratory failure, requiring 3 liters nasal cannula at home. 4. Hypertension. 5. Dyslipidemia. 6. Type 2 diabetes mellitus. 7. History of colon cancer, status post colectomy. PAST SURGICAL HISTORY: 1. Coronary artery bypass graft. 2. Redo coronary artery bypass graft. 3. Herniorrhaphy. 4. Appendectomy. 5. Cardiac catheterization. 6. Inguinal hernia repair. 7. Laparoscopic partial colectomy. 8. Left lower lobectomy. 9. Mediastinoscopy with biopsy. ALLERGIES: IODINE. MEDICATIONS: List of his inpatient medications were reviewed. No specific updates were made. The patient indicates taking Plavix, but I do not see it on the home medication list and is not currently listed as an inpatient medication. Either way, if he took it at home, the last dose was yesterday. SOCIAL HISTORY: He lives at home with his . He is an avid bowler. He uses his left arm for bowling. He has a history of smoking, but does not do anything currently. He denies any alcohol or illicit drug use. He has no exposure to chemicals, dust, asbestosis or tuberculosis FAMILY HISTORY: Noncontributory. REVIEW OF SYSTEMS: General, head, ears, eyes, nose, throat, cardiovascular, respiratory, GI, , musculoskeletal, neurologic and skin is negative except as mentioned in the HPI. PHYSICAL EXAMINATION: VITAL SIGNS: Afebrile, pulse 92, blood pressure 127/82, respirations 22, saturation 92% on 3 liters nasal cannula. GENERAL: This patient is awake, alert, in no apparent distress. LUNGS: Reduced air entry on the left. There is a prolonged expiratory phase and polyphonic wheezing. Crackles are evident. HEART: Normal rate, regular. ABDOMEN: Soft, nontender, nondistended. Bowel sounds are positive. MUSCULOSKELETAL: No cyanosis or clubbing. No pitting in the bilateral lower extremities. NEUROLOGIC: Grossly nonfocal. LABORATORY DATA: WBC 9.1, hemoglobin 14.3, platelets 274,000. D-dimer 1.59. Cardiac enzymes are negative x3. BNP 83. Liver function studies and basic metabolic profile are unremarkable. IMAGIN. Ultrasound of the bilateral lower extremities demonstrates no evidence of deep vein thrombosis. 2. Chest x-ray demonstrates interval enlargement in the left side pleural effusion. ASSESSMENT: 1. Acute on chronic hypoxic respiratory failure. 2. Adenocarcinoma of the lung, widely metastatic. 3. Pleural effusion on the left, enlarging. 4. History of left lower lobectomy. 5. Chronic obstructive pulmonary disease with acute exacerbation. PLAN: We will put the patient on very low dose of steroids, and frequent nebulized medications. We will continue our antibiotics. I am going to do a diagnostic and therapeutic thoracentesis. If this is helpful, and the patient has malignant cells in this fluid, the next time he has recurrence of fluid, he may be a good candidate for PleurX catheter placement that we may need to take care not to put the tube in place that would affect the swing of his left arm during bowling if possible as this is one of the things that the patient really truly enjoys doing. Pulmonary Critical Care will continue to follow, but Dr. Scott will assume care in the morning. 70 minutes have been devoted to this patient in various activities. I personally reviewed all imaging studies and laboratory data noted within this document. For at least half of this time, I was interacting with the patient at the bedside or coordinating care with the care team. For the remainder of the time I was immediately available to the patient in the hospital unit. LUIS ENRIQUE
[2017-08-31] MEDS: Simvastatin 20 MG TAB PO SCH (20:34)
[2017-08-31] MEDS: Benzonatate 100 MG CAP PO PRN (20:35)
[2017-08-31] MEDS: Lisinopril 5 MG TAB PO SCH (20:35)
--- NOTE | 2017-08-31 23:34 | OP ---
DATE OF SERVICE: 08/31/2017 SERVICE: Pulmonary Medicine. PROCEDURE: Left-sided pleural drainage with catheter insertion under ultrasound guidance. CONSENT: Risks and benefits of this procedure were explained to the patient. All questions were ans wered and alternative options explained. STAFF PHYSICIAN: Luca Rhodes M.D. MEDICATIONS USED: Lidocaine 1% without epinephrine, total quantity 8 mL PREOPERATIVE DIAGNOSES: 1. Acute hypoxic respiratory failure. 2. Pleural effusion. POSTPROCEDURE DIAGNOSES: 1. Acute hypoxic respiratory failure. 2. Pleural effusion. DESCRIPTION OF PROCEDURE: A timeout was performed by the procedure team and the patient. The patien t was positively identified using name and date of . The procedure site was marked. Vital sign monitoring was accomplished by noninvasive hemodynamic monitoring, pulse oximetry, and telemetry. I n the seated position, the left posterior hemithorax was examined using ultrasound probe. The diaphr agm and pleural fluid were easily identified. The skin was prepped and draped in sterile fashion and anesthetized with 1% lidocaine without epinephrine. A finder needle was inserted into the pleural s pace with return of cloudy straw colored fluid. The pleural drainage catheter was inserted in the sa me location and a total quantity of 1800 mL of fluid was withdrawn by syringe pump technique. [facility]. Evacuation of fluid was terminated because we arrived at -20 cm of pleural fluid pressure. The intact catheter was withdrawn on exhalation and a sterile dressing was applied. The patient had stable vital signs throughout the entire procedure. ESTIMATED BLOOD LOSS: 1 mL COMPLICATIONS: None.
[2017-09-01 05:27] LABS: #Eosinphils 0.4 thou/uL (0.0-0.7); #Lymphocytes 0.9 thou/uL (1.20-3.40); #Monocytes 1.3 thou/uL (0.11-0.59); #Neutrophils 8.5 thou/uL (1.40-6.50); %Basophils 0.4 % (0.0-1.0); %Eosinophils 3.3 % (0.0-10.0); %Lymphocytes 7.9 % (21.0-51.0); %Monocytes 11.7 % (0.0-10.0); %Neutrophils 76.7 % (42.0-75.0); Hemoglobin 14.1 g/dL (14.0-18.0); Mean Corpuscular HGB CONC 33.5 g/dL (32.0-36.0); Mean Corpuscular Hemoglobin 33.7 pg (27.0-31.0); Mean Platelet Volume 6.3 fL (7.4-10.4); Platelet Count 272 thou/uL (130-400); RBC Distribution Width 12.2 % (11.5-14.5); Red Blood Cell (RBC) Count 4.19 mill/uL (4.70-6.10); White Blood Cell (WBC) Count 11.1 thou/uL (4.8-10.8)
[2017-09-01 05:35] LABS: Anion Gap 11 mmol/L (10-20); BUN (Urea Nitrogen) 13 mg/dL (8.4-25.7); Calc. Creatinine Clearance 86 mL/min (70-130); Calcium 8.9 mg/dL (7.8-10.44); Carbon Dioxide 30 mmol/L (23-31); Chloride 92 mmol/L (98-107); Estimated GFR-MDRD Greater than 90; Glucose 163 mg/dL (83-110); Potassium 4.4 mmol/L (3.5-5.1); Sodium 129 mmol/L (136-145)
[2017-09-01] MEDS: Carvedilol 6.25 MG TAB PO SCH ×2 (08:10→17:06)
[2017-09-01] MEDS: Multivitamin W/ Minerals 1 TAB PO SCH (08:11)
[2017-09-01] MEDS: Amlodipine 5 MG TAB PO SCH (08:11)
[2017-09-01] MEDS: predniSONE 20 MG TAB PO SCH (08:13)
[2017-09-01] MEDS: Furosemide 40 MG TAB PO SCH (08:13)
[2017-09-01] MEDS: Famotidine 20 MG TAB PO SCH ×2 (08:13→19:10)
[2017-09-01] MEDS: Docusate 100 MG CAP PO SCH ×2 (08:13→19:10)
[2017-09-01] MEDS: Loratadine 10 MG TAB PO SCH (08:13)
[2017-09-01] MEDS: Aspirin 81 mg Enteric Coated Tablet PO SCH (08:14)
[2017-09-01] MEDS: Pioglitazone HCl 15 MG TAB PO SCH (08:39)
[2017-09-01] MEDS: metFORMIN XR 500 MG TAB PO SCH ×2 (08:40→19:10)
[2017-09-01] MEDS: Benzonatate 100 MG CAP PO PRN ×2 (11:57→19:10)
[2017-09-01] MEDS ORDERED: Dextrose 5% in Water 1,000 ML IV PRN (12:15)
[2017-09-01] MEDS ORDERED: Dextrose 50% Abboject 50 ML SYRINGE SLOW IVP PRN (12:15)
--- NOTE | 2017-09-01 12:18 | PDOC.PN ---
- Subjective Encounter Start Date: 09/01/17 Encounter Start Time: 07:00 Pt seen for followup re: pleural effusion. Reports breathing is better. had episodes of anxiety. No nausea, vomiting or diarrhea. - Objective Resuscitation Status: Resuscitation Status FULL:Full Resuscitation MAR Reviewed: Yes Vital Signs & Weight: Vital Signs (12 hours) Temp Pulse Resp BP BP BP Pulse Ox 09/01/17 11:43 98.2 F 64 18 146/69 H 96 09/01/17 09:26 98.6 F 84 20 92 L 09/01/17 09:25 84 16 09/01/17 08:22 98.6 F 84 20 149/76 H 92 L 09/01/17 08:11 88 135/72 09/01/17 08:10 135/72 09/01/17 08:06 88 135/72 09/01/17 06:25 91 L 09/01/17 06:24 75 12 09/01/17 03:59 97.9 F 75 16 126/78 93 L 09/01/17 02:20 78 20 90 L 09/01/17 00:59 93 L Weight Weight 162 lb 4.8 oz I&O: 08/31/17 09/01/17 09/02/17 06:59 06:59 06:59 Intake Total 240 Balance 240 Result Diagrams: 09/01/17 04:37 09/01/17 04:37 Phys Exam - Physical Examination Constitutional: NAD HEENT: PERRLA, moist MMs, sclera anicteric, oral pharynx no lesions Neck: supple Respiratory: no wheezing, no rales, no rhonchi, clear to auscultation bilateral Diminished air entry L base Cardiovascular: RRR, no rub Gastrointestinal: soft, non-tender Musculoskeletal: edema present Neurological: moves all 4 limbs Psychiatric: normal affect, A&O x 3 Dx/Plan (1) Pleural effusion Code(s): J90 - PLEURAL EFFUSION, NOT ELSEWHERE CLASSIFIED Status: Acute (2) CAD (coronary artery disease) Code(s): I25.10 - ATHSCL HEART DISEASE OF [place] CORONARY ARTERY W/O ANG PCTRS Status: Chronic Qualifiers: Coronary Disease-Associated Artery/Lesion type: [place] artery [place] vs. transplanted heart: [place] heart Associated angina: without angina Qualified Code(s): I25.10 - Atherosclerotic heart disease of [place] coronary artery without angina pectoris (3) Chronic obstructive lung disease Status: Chronic (4) Diabetes mellitus type 2 in nonobese Code(s): E11.9 - TYPE 2 DIABETES MELLITUS WITHOUT COMPLICATIONS Status: Chronic (5) Hypertension Code(s): I10 - ESSENTIAL (PRIMARY) HYPERTENSION Status: Chronic Qualifiers: Hypertension type: essential hypertension Qualified Code(s): I10 - Essential (primary) hypertension (6) Hyponatremia Code(s): E87.1 - HYPO-OSMOLALITY AND HYPONATREMIA Status: Chronic - Plan out of bed/ambulate, DVT proph w/SCDs * . Continue oxygen PRN, steroids and bronchodilators. s/p thoracentesis. Accuchecks, insulin sliding scale. Monitor vital signs, titrate antihypertensives as needed. Monitor lytes. Review of Systems - Review of Systems Constitutional: negative: fever, chills, sweats, weakness, malaise Respiratory: SOB with Excertion. negative: Cough, Dry, Shortness of Breath, Hemoptysis, Pleuritic Pain, Sputum, Wheezing Cardiovascular: negative: chest pain, palpitations, orthopnea, paroxysmal nocturnal dyspnea, edema, light headedness Gastrointestinal: negative: Nausea, Vomiting, Abdominal Pain, Diarrhea, Constipation, Melena, Hematochezia Genitourinary: negative: Dysuria, Frequency, Incontinence, Hematuria, Retention - Medications/Allergies Allergies/Adverse Reactions: Allergies Allergy/AdvReac Type Severity Reaction Status Date / Time Iodinated Contrast- Oral and Allergy Verified 08/30/17 23:36 IV Dye iodine Allergy Verified 08/30/17 23:36 Medications: Current Medications Albuterol/Ipratropium (Duoneb) 3 ml NEB [id number] [facility] Last Admin: 09/01/17 09:25 Dose: 3 ml Albuterol/Ipratropium (Duoneb) 3 ml NEB Q2H PRN PRN Reason: SOB &/or Wheezing Last Admin: 08/31/17 13:01 Dose: 3 ml Amlodipine Besylate (Norvasc) 2.5 mg PO [facility] Last Admin: 09/01/17 08:11 Dose: 2.5 mg Aspirin (Ecotrin) 81 mg PO [facility] Last Admin: 09/01/17 08:14 Dose: 81 mg Benzonatate (Tessalon) 100 mg PO TID PRN PRN Reason: Cough Last Admin: 09/01/17 11:57 Dose: 100 mg Calcium Carbonate (Tums) 1,000 mg PO Q4H PRN PRN Reason: Heartburn or Indigestion Carvedilol (Coreg) 12.5 mg PO BID-[facility] Last Admin: 09/01/17 08:10 Dose: 12.5 mg Cholecalciferol (Vitamin D3) 2,000 units PO DAILY [facility] Last Admin: 09/01/17 08:14 Dose: 2,000 units Clonidine (Catapres) 0.1 mg PO Q4H PRN PRN Reason: Systolic BP > 180 Dextrose/Water (Dextrose 50%) 25 gm SLOW IVP PRN PRN PRN Reason: Hypoglycemia Docusate Sodium (Colace) 100 mg PO BID [facility] Last Admin: 09/01/17 08:13 Dose: 100 mg Famotidine (Pepcid) 20 mg PO BID [facility] Last Admin: 09/01/17 08:13 Dose: 20 mg Furosemide (Lasix) 40 mg PO DAILY-[facility] Stop: 09/02/17 07:31 Last Admin: 09/01/17 08:13 Dose: 40 mg Glucagon (Glucagon) 1 mg IM PRN PRN PRN Reason: Hypoglycemia Dextrose/Water (D5w) 1,000 mls @ 0 mls/hr IV .Q0M PRN; As Directed PRN Reason: Hypoglycemia Insulin Human Lispro (Humalog) 0 units SC .MILD SLIDING SCALE PRN PRN Reason: Mild Correctional Scale Iron/Minerals/Multivitamins (Theragran M) 1 tab PO DAILY [facility] Last Admin: 09/01/17 08:11 Dose: 1 tab Lisinopril (Zestril) 5 mg PO HS [facility] Last Admin: 08/31/17 20:35 Dose: 5 mg Loratadine (Claritin) 10 mg PO DAILY [facility] Last Admin: 09/01/17 08:13 Dose: 10 mg Metformin HCl (Glucophage Xr) 500 mg PO BID [facility] Last Admin: 09/01/17 08:40 Dose: 500 mg Nitroglycerin (Nitrostat) 0.4 mg PO Q5MIN PRN PRN Reason: Chest Pain Ondansetron HCl (Zofran Odt) 4 mg PO Q6H PRN PRN Reason: Nausea/Vomiting Ondansetron HCl (Zofran) 4 mg IVP Q6H PRN PRN Reason: Nausea/Vomiting Pioglitazone HCl (Actos) 30 mg PO QAM [facility] Last Admin: 09/01/17 08:39 Dose: 30 mg Prednisone (Prednisone) 20 mg PO DAILY [facility] Last Admin: 09/01/17 08:13 Dose: 20 mg Simvastatin (Zocor) 10 mg PO HS [facility] Last Admin: 08/31/17 20:34 Dose: 10 mg Temazepam (Restoril) 15 mg PO HSPRN PRN PRN Reason: Anxiety
--- NOTE | 2017-09-01 13:48 | PRG ---
DATE OF SERVICE: 09/01/2017 SUBJECTIVE: Daniel Lorenzana says he feels 100% better. His effusion cytology is pending. Appears to be exudate with the red cell predominance. OBJECTIVE: VITAL SIGNS: He is afebrile, heart rate 64, respiratory rate 18, oximetry is 96, blood pressure 146/ 69. CHEST: Very few wheezes on chest exam. HEART: Regular rhythm. IMPRESSION: Status post evacuation of significant pleural effusion that is new. We will await patho logy. I see no reason to increase his steroids.
[2017-09-01] MEDS: HumaLOG 300 UNITS/3 ML VIAL SC PRN (17:08)
[2017-09-01] MEDS: Simvastatin 20 MG TAB PO SCH (19:09)
[2017-09-01] MEDS: Lisinopril 5 MG TAB PO SCH (19:11)
[2017-09-01] MEDS: Temazepam 15 MG CAP PO PRN (22:24)
[2017-09-02] MEDS: Furosemide 40 MG TAB PO SCH (08:03)
[2017-09-02] MEDS: Carvedilol 6.25 MG TAB PO SCH ×2 (08:04→16:37)
[2017-09-02] MEDS: Docusate 100 MG CAP PO SCH ×2 (10:08→20:21)
[2017-09-02] MEDS: Multivitamin W/ Minerals 1 TAB PO SCH (10:08)
[2017-09-02] MEDS: Aspirin 81 mg Enteric Coated Tablet PO SCH (10:17)
[2017-09-02] MEDS: Pioglitazone HCl 15 MG TAB PO SCH (10:17)
[2017-09-02] MEDS: Amlodipine 5 MG TAB PO SCH (10:18)
[2017-09-02] MEDS: Loratadine 10 MG TAB PO SCH (10:18)
[2017-09-02] MEDS: predniSONE 20 MG TAB PO SCH (10:19)
[2017-09-02] MEDS: Famotidine 20 MG TAB PO SCH ×2 (10:19→20:21)
[2017-09-02] MEDS: metFORMIN XR 500 MG TAB PO SCH ×2 (11:07→20:21)
[2017-09-02] MEDS: HumaLOG 300 UNITS/3 ML VIAL SC PRN ×2 (11:15→16:42)
--- NOTE | 2017-09-02 13:58 | PRG ---
DATE OF SERVICE: 09/02/2017 SUBJECTIVE: He is still complaining of short of breath. He is coughing some yellow sputum. PHYSICAL EXAMINATION: VITAL SIGNS: Sats are 95% on 2 liters, respirations 18, temperature 97, blood pressure 110/68. CHEST: Decreased breath sounds, prolonged expiration. CARDIAC: Normal S1 and S2. No gallops. ABDOMEN: Soft. No masses. IMPRESSION: 1. Chronic obstructive pulmonary disease exacerbation, bronchitis. 2. Left pleural effusion, status post thoracentesis. PLAN: Await results of the thoracentesis. Neb treatment as prescribed, prednisone. I have added Du crystal. We will follow.
[2017-09-02] MEDS ORDERED: Sodium Chloride 1 GM TAB PO SCH (14:30)
--- NOTE | 2017-09-02 14:55 | PDOC.PN ---
- Subjective Encounter Start Date: 09/02/17 Encounter Start Time: 14:53 Pt seen for followup re: pleural effusion. Feels better, not at baseline. Cough+, SOBOE+ - Objective Resuscitation Status: Resuscitation Status FULL:Full Resuscitation MAR Reviewed: Yes Vital Signs & Weight: Vital Signs (12 hours) Temp Pulse Resp BP BP BP Pulse Ox 09/02/17 14:32 88 16 09/02/17 12:00 98 09/02/17 11:15 97.6 F 75 18 110/68 91 L 09/02/17 10:18 76 09/02/17 10:12 76 16 09/02/17 08:04 119/57 L 09/02/17 08:00 96.4 F L 73 18 09/02/17 07:05 96.4 F L 73 18 124/65 96 09/02/17 06:20 82 16 89 L 09/02/17 03:55 98.0 F 85 16 118/64 92 L Weight Weight 164 lb 4.8 oz I&O: 09/01/17 09/02/17 09/03/17 06:59 06:59 06:59 Intake Total 1250 Output Total 750 Balance 500 Result Diagrams: 09/01/17 04:37 09/01/17 04:37 Additional Labs: Accuchecks 09/02/17 09/02/17 09/01/17 11:07 06:04 19:11 POC Glucose 223 H 159 H 212 H 09/01/17 16:00 POC Glucose 359 H Phys Exam - Physical Examination Constitutional: NAD HEENT: moist MMs Neck: supple Respiratory: clear to auscultation bilateral Diminished air entry L base Cardiovascular: RRR Gastrointestinal: soft Neurological: moves all 4 limbs Psychiatric: normal affect Dx/Plan (1) Pleural effusion Code(s): J90 - PLEURAL EFFUSION, NOT ELSEWHERE CLASSIFIED Status: Acute (2) CAD (coronary artery disease) Code(s): I25.10 - ATHSCL HEART DISEASE OF [place] CORONARY ARTERY W/O ANG PCTRS Status: Chronic Qualifiers: Coronary Disease-Associated Artery/Lesion type: [place] artery [place] vs. transplanted heart: [place] heart Associated angina: without angina Qualified Code(s): I25.10 - Atherosclerotic heart disease of [place] coronary artery without angina pectoris (3) Chronic obstructive lung disease Status: Chronic (4) Diabetes mellitus type 2 in nonobese Code(s): E11.9 - TYPE 2 DIABETES MELLITUS WITHOUT COMPLICATIONS Status: Chronic (5) Hypertension Code(s): I10 - ESSENTIAL (PRIMARY) HYPERTENSION Status: Chronic Qualifiers: Hypertension type: essential hypertension Qualified Code(s): I10 - Essential (primary) hypertension (6) Hyponatremia Code(s): E87.1 - HYPO-OSMOLALITY AND HYPONATREMIA Status: Chronic - Plan plan discussed w/ family, PT/OT, out of bed/ambulate * . s/p thoracentesis. Start sodium tablets (pt takes them at home). Continue oxygen, steroids and bronchodilators. Review of Systems - Review of Systems Constitutional: negative: fever, chills, sweats, weakness, malaise Respiratory: Cough, SOB with Excertion. negative: Dry, Shortness of Breath, Hemoptysis, Pleuritic Pain, Sputum, Wheezing - Medications/Allergies Allergies/Adverse Reactions: Allergies Allergy/AdvReac Type Severity Reaction Status Date / Time Iodinated Contrast- Oral and Allergy Verified 08/30/17 23:36 IV Dye iodine Allergy Verified 08/30/17 23:36 Medications: Current Medications Albuterol/Ipratropium (Duoneb) 3 ml NEB [id number] [facility] Last Admin: 09/02/17 14:32 Dose: 3 ml Albuterol/Ipratropium (Duoneb) 3 ml NEB Q2H PRN PRN Reason: SOB &/or Wheezing Last Admin: 08/31/17 13:01 Dose: 3 ml Amlodipine Besylate (Norvasc) 2.5 mg PO QAM [facility] Last Admin: 09/02/17 10:18 Dose: 2.5 mg Aspirin (Ecotrin) 81 mg PO QAM [facility] Last Admin: 09/02/17 10:17 Dose: 81 mg Benzonatate (Tessalon) 100 mg PO TID PRN PRN Reason: Cough Last Admin: 09/01/17 19:10 Dose: 100 mg Calcium Carbonate (Tums) 1,000 mg PO Q4H PRN PRN Reason: Heartburn or Indigestion Carvedilol (Coreg) 12.5 mg PO BID-WM [facility] Last Admin: 09/02/17 08:04 Dose: 12.5 mg Cholecalciferol (Vitamin D3) 2,000 units PO DAILY [facility] Last Admin: 09/02/17 10:08 Dose: 2,000 units Clonidine (Catapres) 0.1 mg PO Q4H PRN PRN Reason: Systolic BP > 180 Dextrose/Water (Dextrose 50%) 25 gm SLOW IVP PRN PRN PRN Reason: Hypoglycemia Docusate Sodium (Colace) 100 mg PO BID [facility] Last Admin: 09/02/17 10:08 Dose: 100 mg Famotidine (Pepcid) 20 mg PO BID [facility] Last Admin: 09/02/17 10:19 Dose: 20 mg Glucagon (Glucagon) 1 mg IM PRN PRN PRN Reason: Hypoglycemia Dextrose/Water (D5w) 1,000 mls @ 0 mls/hr IV .Q0M PRN; As Directed PRN Reason: Hypoglycemia Insulin Human Lispro (Humalog) 0 units SC .MILD SLIDING SCALE PRN PRN Reason: Mild Correctional Scale Last Admin: 09/02/17 11:15 Dose: 3 unit Iron/Minerals/Multivitamins (Theragran M) 1 tab PO DAILY [facility] Last Admin: 09/02/17 10:08 Dose: 1 tab Lisinopril (Zestril) 5 mg PO HS [facility] Last Admin: 09/01/17 19:11 Dose: Not Given Loratadine (Claritin) 10 mg PO DAILY [facility] Last Admin: 09/02/17 10:18 Dose: 10 mg Metformin HCl (Glucophage Xr) 500 mg PO BID [facility] Last Admin: 09/02/17 11:07 Dose: 500 mg Mometasone Furoate/Formoterol Fumar (Dulera 200 Mcg/5 Mcg Inhaler) 2 puff INH BID-RT [facility] Nitroglycerin (Nitrostat) 0.4 mg PO Q5MIN PRN PRN Reason: Chest Pain Ondansetron HCl (Zofran Odt) 4 mg PO Q6H PRN PRN Reason: Nausea/Vomiting Ondansetron HCl (Zofran) 4 mg IVP Q6H PRN PRN Reason: Nausea/Vomiting Pioglitazone HCl (Actos) 30 mg PO QAM [facility] Last Admin: 09/02/17 10:17 Dose: 30 mg Prednisone (Prednisone) 20 mg PO DAILY [facility] Last Admin: 09/02/17 10:19 Dose: 20 mg Simvastatin (Zocor) 10 mg PO HS [facility] Last Admin: 09/01/17 19:09 Dose: 10 mg Sodium Chloride (Sodium Chloride) 1 gm PO DAILY [facility] Sodium Chloride (Sodium Chloride) 1 gm PO 1430 [facility] Stop: 09/02/17 16:30 Temazepam (Restoril) 15 mg PO HSPRN PRN PRN Reason: Anxiety Last Admin: 09/01/17 22:24 Dose: 15 mg
[2017-09-02] MEDS: Benzonatate 100 MG CAP PO PRN ×2 (16:35→22:47)
[2017-09-02] MEDS: Mometasone/Formoterol 120 PUFF INHALER INH SCH (18:35)
[2017-09-02] MEDS: Lisinopril 5 MG TAB PO SCH (20:21)
[2017-09-02] MEDS: Simvastatin 20 MG TAB PO SCH (20:21)
[2017-09-02] MEDS: Temazepam 15 MG CAP PO PRN (22:47)
[2017-09-03 06:12] LABS: #Eosinphils 0.4 thou/uL (0.0-0.7); #Monocytes 1.1 thou/uL (0.11-0.59); #Neutrophils 6.8 thou/uL (1.40-6.50); %Basophils 0.4 % (0.0-1.0); %Lymphocytes 10.2 % (21.0-51.0); %Monocytes 12.2 % (0.0-10.0); %Neutrophils 73.3 % (42.0-75.0); Hemoglobin 12.7 g/dL (14.0-18.0); Mean Corpuscular HGB CONC 33.7 g/dL (32.0-36.0); Mean Platelet Volume 6.5 fL (7.4-10.4); Platelet Count 260 thou/uL (130-400); RBC Distribution Width 12.3 % (11.5-14.5); Red Blood Cell (RBC) Count 3.75 mill/uL (4.70-6.10); White Blood Cell (WBC) Count 9.2 thou/uL (4.8-10.8)
[2017-09-03 06:34] LABS: Anion Gap 9 mmol/L (10-20); BUN (Urea Nitrogen) 14 mg/dL (8.4-25.7); Calc. Creatinine Clearance 93 mL/min (70-130); Calcium 8.4 mg/dL (7.8-10.44); Carbon Dioxide 31 mmol/L (23-31); Chloride 93 mmol/L (98-107); Estimated GFR-MDRD Greater than 90; Glucose 133 mg/dL (83-110); Potassium 3.6 mmol/L (3.5-5.1); Sodium 129 mmol/L (136-145)
[2017-09-03] MEDS: Mometasone/Formoterol 120 PUFF INHALER INH SCH ×2 (06:41→18:23)
[2017-09-03] MEDS: Carvedilol 6.25 MG TAB PO SCH ×2 (08:02→17:07)
[2017-09-03] MEDS: Amlodipine 5 MG TAB PO SCH (08:03)
[2017-09-03] MEDS: Aspirin 81 mg Enteric Coated Tablet PO SCH (08:05)
[2017-09-03] MEDS: Famotidine 20 MG TAB PO SCH ×2 (08:06→20:02)
[2017-09-03] MEDS: Docusate 100 MG CAP PO SCH ×2 (08:06→20:02)
[2017-09-03] MEDS: Loratadine 10 MG TAB PO SCH (08:06)
[2017-09-03] MEDS: metFORMIN XR 500 MG TAB PO SCH ×2 (08:07→20:02)
[2017-09-03] MEDS: Multivitamin W/ Minerals 1 TAB PO SCH (08:07)
[2017-09-03] MEDS: Pioglitazone HCl 15 MG TAB PO SCH (08:08)
[2017-09-03] MEDS: Sodium Chloride 1 GM TAB PO SCH (08:08)
[2017-09-03] MEDS: predniSONE 20 MG TAB PO SCH (08:08)
[2017-09-03] MEDS: Benzonatate 100 MG CAP PO PRN ×2 (08:23→22:28)
[2017-09-03] MEDS: HumaLOG 300 UNITS/3 ML VIAL SC PRN ×2 (11:59→17:05)
--- NOTE | 2017-09-03 15:22 | PRG ---
DATE OF SERVICE: 09/03/2017 SUBJECTIVE: The patient is seen and examined at bedside. He is complaining about some shortness of breath, but his breathing treatment came late this morning. His appetite is fair. He does not have much complaints to offer. OBJECTIVE: VITAL SIGNS: Blood pressure is 123/69, pulse is 84, respiratory rate is 16, temperature is 97.8. HEENT: His head is atraumatic, normocephalic. Eyes are PERRLA. Conjunctivae pinkish. Oral mucosa is moist. NECK: Supple, no lymphadenopathy. Thyroid is not palpable. LUNGS: Left base is dull and breath sounds with some crackles at the area, no wheezing. HEART: S1, S2 normal. No S3, no S4. ABDOMEN: Soft, nontender. Bowel sounds are present. No organomegaly. EXTREMITIES: No clubbing, cyanosis, or edema. NEUROLOGIC: He is alert and oriented x3. LABORATORY DATA: Showed hemoglobin of 12.7, hematocrit 37.8, platelet count is 260. White count 9.2 . Sodium of 129, potassium 3.6, chloride 93, CO2 is 31, BUN 14, creatinine 0.71. Glycemia is rangin g from 134 to 306. Microbiology: Acid fast bacilli negative and pleural fluid culture is pending. I do not see any cytology results back. IMPRESSION: 1. Pleural effusion, status post thoracentesis. 2. Coronary artery disease, chronic, stable. 3. Chronic obstructive lung disease, chronic. 4. Diabetes mellitus type 2, chronic. 5. Hypertension, chronic. 6. Hyponatremia, chronic. PLAN: Continue current regimen. Pulmonary is going to make decision about discharge home and their recommendations. We will continue his nebulizers. We will continue his carvedilol, lisinopril, metf ormin, Dulera, pioglitazone, simvastatin and 20 mg of a prednisone.
--- NOTE | 2017-09-03 15:45 | PRG ---
DATE OF SERVICE: 09/03/2017 SUBJECTIVE: This morning, he is very short of breath, can barely walk even 10 feet without getting d yspneic. OBJECTIVE: VITAL SIGNS: Sats are 90% on 2 liters, temperature 97, blood pressure 110/60. CHEST: Reveals decreased breath sounds in the right lung with extensive rhonchi and crackles. CARDIAC: Normal S1, S2. No gallops. ABDOMEN: Soft. No masses. LABORATORY DATA: White count 9000, H and H 11 and 32. Sodium 129. IMPRESSION: 1. Pleural effusion status post thoracentesis, bronchogenic carcinoma. 2. Chronic obstructive pulmonary disease with respiratory failure. PLAN: Awaiting cytology. I am told he may need a total catheter for drainage for recurrent pleural effusion on his left side. We will follow.
[2017-09-03] MEDS: Simvastatin 20 MG TAB PO SCH (20:01)
[2017-09-03] MEDS: Lisinopril 5 MG TAB PO SCH (20:02)
[2017-09-03] MEDS: Temazepam 15 MG CAP PO PRN (22:28)
[2017-09-04 06:02] LABS: Anion Gap 10 mmol/L (10-20); BUN (Urea Nitrogen) 16 mg/dL (8.4-25.7); Calc. Creatinine Clearance 85 mL/min (70-130); Calcium 8.7 mg/dL (7.8-10.44); Carbon Dioxide 31 mmol/L (23-31); Chloride 95 mmol/L (98-107); Estimated GFR-MDRD Greater than 90; Glucose 151 mg/dL (83-110); Potassium 3.9 mmol/L (3.5-5.1); Sodium 132 mmol/L (136-145)
[2017-09-04] MEDS: Mometasone/Formoterol 120 PUFF INHALER INH SCH ×2 (06:25→18:18)
--- NOTE | 2017-09-04 07:47 | RAD ---
CHEST 1 VIEW: HISTORY: Dyspnea. Effusions. Followup. COMPARISON: 08/30/17. FINDINGS: Cardiac silhouette is magnified and partially obscured by a large amount of left pleural fluid. Pulm onary vasculature has become slightly more engorged with increase in patchy airspace opacity througho ut each lung. Mediastinum is midline with postoperative changes and aortic calcification. IMPRESSION: Interval increase in pulmonary vascular congestion. Left pleural fluid is otherwise stable. POS: [facility]
[2017-09-04] MEDS: Carvedilol 6.25 MG TAB PO SCH ×2 (09:38→17:01)
[2017-09-04] MEDS: Loratadine 10 MG TAB PO SCH (09:39)
[2017-09-04] MEDS: Sodium Chloride 1 GM TAB PO SCH (09:39)
[2017-09-04] MEDS: Aspirin 81 mg Enteric Coated Tablet PO SCH (09:40)
[2017-09-04] MEDS: Amlodipine 5 MG TAB PO SCH (09:40)
[2017-09-04] MEDS: Multivitamin W/ Minerals 1 TAB PO SCH (09:41)
[2017-09-04] MEDS: Docusate 100 MG CAP PO SCH ×2 (09:41→19:41)
[2017-09-04] MEDS: predniSONE 20 MG TAB PO SCH (09:42)
[2017-09-04] MEDS: Famotidine 20 MG TAB PO SCH ×2 (09:42→19:41)
[2017-09-04] MEDS: Pioglitazone HCl 15 MG TAB PO SCH (09:42)
[2017-09-04] MEDS: Benzonatate 100 MG CAP PO PRN ×2 (09:43→22:23)
[2017-09-04] MEDS: metFORMIN XR 500 MG TAB PO SCH ×2 (10:39→19:45)
[2017-09-04] MEDS ORDERED: Furosemide 40 MG/4 ML VIAL SLOW IVP SCH (10:45)
[2017-09-04] MEDS: HumaLOG 300 UNITS/3 ML VIAL SC PRN ×2 (12:15→16:59)
--- NOTE | 2017-09-04 14:23 | PDOC.PN ---
- Subjective Encounter Start Date: 09/04/17 Encounter Start Time: 14:21 Subjective: feels bad.worse SOB this morning. -: weak,tired - Objective Resuscitation Status: Resuscitation Status FULL:Full Resuscitation MAR Reviewed: Yes Vital Signs & Weight: Vital Signs (12 hours) Temp Pulse Resp BP BP BP Pulse Ox 09/04/17 11:46 98.2 F 89 18 118/63 89 L 09/04/17 10:10 86 20 92 L 09/04/17 10:00 88 20 90 L 09/04/17 09:40 91 09/04/17 09:38 110/58 L 09/04/17 09:36 91 20 110/58 L 88 L 09/04/17 08:00 97.3 F L 84 20 92 L 09/04/17 07:20 97.3 F L 84 20 128/70 91 L 09/04/17 06:23 87 22 H 94 L 09/04/17 04:00 97.7 F 74 16 104/53 L 92 L Weight Weight 162 lb 14.4 oz I&O: 09/03/17 09/04/17 09/05/17 06:59 06:59 06:59 Intake Total 2280 725 Output Total 800 Balance 1480 725 Result Diagrams: 09/03/17 05:31 09/04/17 05:27 Additional Labs: Accuchecks 09/04/17 09/04/17 09/03/17 11:44 05:51 21:16 POC Glucose 265 H 142 H 237 H 09/03/17 15:27 POC Glucose 357 H Microbiology 08/31/17 17:30 Pleural fluid Acid Fast Bacilli Smear - Final 08/31/17 17:30 Pleural fluid Body Fluid Culture - Preliminary Laboratory Tests 08/30/17 09/01/17 09/03/17 20:10 04:37 05:31 Sodium 130 L 129 L 129 L 09/04/17 05:27 Sodium 132 L Radiology Reviewed by me: Yes (CXR-Pulm vascular congestion) Phys Exam - Physical Examination Constitutional: NAD HEENT: PERRLA, moist MMs, sclera anicteric, TM's clear, oral pharynx no lesions , 2+ tonsils Neck: no nodes, no JVD, supple, full ROM decreased at R lung.faint crackles B/L Cardiovascular: RRR, no significant murmur Gastrointestinal: soft, non-tender, no distention, positive bowel sounds Musculoskeletal: no edema, pulses present Neurological: non-focal, normal sensation, moves all 4 limbs Psychiatric: normal affect, A&O x 3 Skin: no rash Dx/Plan (1) Fluid overload Code(s): E87.70 - FLUID OVERLOAD, UNSPECIFIED Status: Acute Qualifiers: Hypervolemia type: unspecified Qualified Code(s): E87.70 - Fluid overload, unspecified (2) Pleural effusion Code(s): J90 - PLEURAL EFFUSION, NOT ELSEWHERE CLASSIFIED Status: Acute Comment: s/p Thoracentesis (3) Hyponatremia Code(s): E87.1 - HYPO-OSMOLALITY AND HYPONATREMIA Status: Chronic (4) Respiratory distress Code(s): R06.03 - ACUTE RESPIRATORY DISTRESS Status: Acute Comment: Metastatic Lung CA w Pleural effusion and Pulmonary edema (5) Anemia Code(s): D64.9 - ANEMIA, UNSPECIFIED Status: Chronic Qualifiers: Anemia type: unspecified type Qualified Code(s): D64.9 - Anemia, unspecified Comment: Recent Sx.Work up showed Anastomotic leak. (6) CAD (coronary artery disease) Code(s): I25.10 - ATHSCL HEART DISEASE OF [place] CORONARY ARTERY W/O ANG PCTRS Status: Chronic Qualifiers: Coronary Disease-Associated Artery/Lesion type: [place] artery [place] vs. transplanted heart: [place] heart Associated angina: without angina Qualified Code(s): I25.10 - Atherosclerotic heart disease of [place] coronary artery without angina pectoris (7) Chronic obstructive lung disease Status: Chronic (8) Diabetes mellitus type 2 in nonobese Code(s): E11.9 - TYPE 2 DIABETES MELLITUS WITHOUT COMPLICATIONS Status: Chronic (9) Hypertension Code(s): I10 - ESSENTIAL (PRIMARY) HYPERTENSION Status: Chronic Qualifiers: Hypertension type: essential hypertension Qualified Code(s): I10 - Essential (primary) hypertension (10) H/O malignant neoplasm of colon Code(s): Z85.038 - PERSONAL HISTORY OF MALIGNANT NEOPLASM OF LARGE INTESTINE Status: Chronic Comment: s/p Colectomy 2016 (11) Paroxysmal atrial fibrillation Code(s): I48.0 - PAROXYSMAL ATRIAL FIBRILLATION Status: Chronic - Plan respiratory therapy, incentive spirometry, out of bed/ambulate, DVT proph w/SCDs give 1 dose lasix.cont nebs,PO steroids -: Pleural fluid cytology is pendinf.GS w/o any organisms. -: may need Pleural catheter for recurrent pleural effusions.PCCM to decide -: sodium better.gurinder FRIEDMAN d/u underlying Lung CA. -: cont home meds as above.cont O2 prn. * .not ready for DC yet * am labs Review of Systems - Review of Systems Constitutional: weakness, malaise. negative: fever, chills, sweats, other Respiratory: Cough, Shortness of Breath, SOB with Excertion Cardiovascular: negative: chest pain, palpitations, orthopnea, paroxysmal nocturnal dyspnea, edema, light headedness, other Gastrointestinal: negative: Nausea, Vomiting, Abdominal Pain, Diarrhea, Constipation, Melena, Hematochezia, Other Genitourinary: negative: Dysuria, Frequency, Incontinence, Hematuria, Retention , Other Musculoskeletal: negative: Neck Pain, Shoulder Pain, Arm Pain, Back Pain, Hand Pain, Leg Pain, Foot Pain, Other Neurological: negative: Weakness, Numbness, Incoordination, Change in Speech, Confusion, Seizures, Other - Medications/Allergies Allergies/Adverse Reactions: Allergies Allergy/AdvReac Type Severity Reaction Status Date / Time Iodinated Contrast- Oral and Allergy Verified 08/30/17 23:36 IV Dye iodine Allergy Verified 08/30/17 23:36 Medications: Current Medications Albuterol/Ipratropium (Duoneb) 3 ml NEB [id number] [facility] Last Admin: 09/04/17 10:00 Dose: 3 ml Albuterol/Ipratropium (Duoneb) 3 ml NEB Q2H PRN PRN Reason: SOB &/or Wheezing Last Admin: 08/31/17 13:01 Dose: 3 ml Amlodipine Besylate (Norvasc) 2.5 mg PO QAM [facility] Last Admin: 09/04/17 09:40 Dose: 2.5 mg Aspirin (Ecotrin) 81 mg PO QAM [facility] Last Admin: 09/04/17 09:40 Dose: 81 mg Benzonatate (Tessalon) 100 mg PO TID PRN PRN Reason: Cough Last Admin: 09/04/17 09:43 Dose: 100 mg Calcium Carbonate (Tums) 1,000 mg PO Q4H PRN PRN Reason: Heartburn or Indigestion Carvedilol (Coreg) 12.5 mg PO BID-WM [facility] Last Admin: 09/04/17 09:38 Dose: Not Given Cholecalciferol (Vitamin D3) 2,000 units PO DAILY [facility] Last Admin: 09/04/17 09:41 Dose: 2,000 units Clonidine (Catapres) 0.1 mg PO Q4H PRN PRN Reason: Systolic BP > 180 Dextrose/Water (Dextrose 50%) 25 gm SLOW IVP PRN PRN PRN Reason: Hypoglycemia Docusate Sodium (Colace) 100 mg PO BID [facility] Last Admin: 09/04/17 09:41 Dose: 100 mg Famotidine (Pepcid) 20 mg PO BID [facility] Last Admin: 09/04/17 09:42 Dose: 20 mg Glucagon (Glucagon) 1 mg IM PRN PRN PRN Reason: Hypoglycemia Dextrose/Water (D5w) 1,000 mls @ 0 mls/hr IV .Q0M PRN; As Directed PRN Reason: Hypoglycemia Insulin Human Lispro (Humalog) 0 units SC .MILD SLIDING SCALE PRN PRN Reason: Mild Correctional Scale Last Admin: 09/04/17 12:15 Dose: 4 unit Iron/Minerals/Multivitamins (Theragran M) 1 tab PO DAILY [facility] Last Admin: 09/04/17 09:41 Dose: 1 tab Lisinopril (Zestril) 5 mg PO HS [facility] Last Admin: 09/03/17 20:02 Dose: 5 mg Loratadine (Claritin) 10 mg PO DAILY [facility] Last Admin: 09/04/17 09:39 Dose: 10 mg Metformin HCl (Glucophage Xr) 500 mg PO BID [facility] Last Admin: 09/04/17 10:39 Dose: 500 mg Mometasone Furoate/Formoterol Fumar (Dulera 200 Mcg/5 Mcg Inhaler) 2 puff INH BID-RT [facility] Last Admin: 09/04/17 06:25 Dose: 2 puff Nitroglycerin (Nitrostat) 0.4 mg PO Q5MIN PRN PRN Reason: Chest Pain Ondansetron HCl (Zofran Odt) 4 mg PO Q6H PRN PRN Reason: Nausea/Vomiting Ondansetron HCl (Zofran) 4 mg IVP Q6H PRN PRN Reason: Nausea/Vomiting Pioglitazone HCl (Actos) 30 mg PO QAM [facility] Last Admin: 09/04/17 09:42 Dose: 30 mg Prednisone (Prednisone) 20 mg PO DAILY [facility] Last Admin: 09/04/17 09:42 Dose: 20 mg Simvastatin (Zocor) 10 mg PO HS [facility] Last Admin: 09/03/17 20:01 Dose: 10 mg Sodium Chloride (Sodium Chloride) 1 gm PO DAILY [facility] Last Admin: 09/04/17 09:39 Dose: 1 gm Sodium Chloride (Flush - Normal Saline) 10 ml IVF Q12HR [facility] Sodium Chloride (Flush - Normal Saline) 10 ml IVF PRN PRN PRN Reason: Saline Flush Temazepam (Restoril) 15 mg PO HSPRN PRN PRN Reason: Anxiety Last Admin: 09/03/17 22:28 Dose: 15 mg
[2017-09-04] MEDS: Lisinopril 5 MG TAB PO SCH (19:41)
[2017-09-04] MEDS: Simvastatin 20 MG TAB PO SCH (19:42)
--- NOTE | 2017-09-04 21:00 | PRG ---
DATE OF SERVICE: 09/04/2017 SUBJECTIVE: Daniel Lorenzana says he is a little more dyspneic and short of breath than he was over the weekend although it is not terrible. OBJECTIVE: VITAL SIGNS: He is afebrile, heart rate is in the 80s. Blood pressure 102/69, oximetry is 90 on 4 l iters cannula. LUNGS: Remarkable for decreased breath sounds at left base. He has mild wheezes bilaterally. CARDIOVASCULAR: Regular rhythm. ABDOMEN: Soft. IMPRESSION: 1. Metastatic colon cancer. 2. Resected non-small cell lung cancer. Reviewed chest radiograph to grossly underpenetrated film. It was interpreted as being consistent wi th increase in interstitial markings, but it is a very underpenetrated film. Pathology was signed out and was positive for adenocarcinoma. This was not called to me. In any event, we will probably end up putting a PleurX catheter in this gentleman. He has not had hi s new immunotherapy long enough to know whether or not he will respond. Unfortunately, he has some a ggressive colon cancer.
[2017-09-04] MEDS: Temazepam 15 MG CAP PO PRN (22:23)
[2017-09-05 06:08] LABS: Anion Gap 11 mmol/L (10-20); BUN (Urea Nitrogen) 16 mg/dL (8.4-25.7); Calc. Creatinine Clearance 71 mL/min (70-130); Calcium 9.2 mg/dL (7.8-10.44); Carbon Dioxide 32 mmol/L (23-31); Chloride 96 mmol/L (98-107); Estimated GFR-MDRD 80; Glucose 177 mg/dL (83-110); Sodium 135 mmol/L (136-145)
[2017-09-05] MEDS: Mometasone/Formoterol 120 PUFF INHALER INH SCH ×2 (06:19→18:19)
[2017-09-05] MEDS: Carvedilol 6.25 MG TAB PO SCH ×2 (08:38→17:35)
[2017-09-05] MEDS ORDERED: Albuterol Sulfate 2.5 mg/3 ml Neb ONE (09:13)
[2017-09-05] MEDS ORDERED: CEFAZOLIN/Water 2 GM/20 ML SYRINGE ONE (09:16)
[2017-09-05] MEDS ORDERED: Midazolam HCl 2 mg/2 ml Vial ONE (09:18)
[2017-09-05] MEDS ORDERED: Fentanyl 100 MCG/2 ML VIAL ONE (09:18)
[2017-09-05] MEDS ORDERED: Ketamine 50 MG/ML VIAL ONE (09:29)
--- NOTE | 2017-09-05 10:21 | OP ---
PREOPERATIVE DIAGNOSIS: Malignant left pleural effusion, recurrent. PROCEDURE: Left PleurX catheter. SURGEON: Dr. Haas. ANESTHESIA: Sedation with local. PROCEDURE IN DETAIL: After prepping and draping, a 1% lidocaine was used to infiltrate the skin, and aspiration of pleural fluid was obtained. A subcutaneous tract was then infiltrated with lidocaine and a separate incision was made from the exit site. Following this, the catheter was placed through the tunnel, following which a dilator and Peel-Away sheath were placed over the wire and the cathete r advanced through the Peel-Away sheath. After this, the sheath had been removed and the catheter li e nicely in the subcutaneous plane. Following this, the wounds were closed and 1800 mL of yellow flu id was aspirated from the pleural space. The patient tolerated the procedure well.
[2017-09-05] MEDS ORDERED: Fentanyl 100 MCG/2 ML VIAL SLOW IVP PRN (11:25)
[2017-09-05] MEDS ORDERED: HYDROcodone/Acetaminophen 5/325 mg Tablet PO PRN ×2 (11:25)
--- NOTE | 2017-09-05 11:48 | RAD ---
ONE VIEW CHEST: History: Catheter placement. Comparison: 09-04-17 FINDINGS: Portable upright chest re-demonstrates sternotomy wires. Stable cardiac silhouette. Interval placemen t of a left sided catheter with the distal tip in the left lung base. Previously seen left sided pleu ral effusion has resolved. Persistent diffuse interstitial and alveolar opacities. Focal mass-like op acity in the right lung base and right midlung are noted. Correlation made with a chest CT from does demonstrate multiple lung parenchymal masses. No pneumothorax. IMPRESSION: 1. Minimal decrease in left sided pleural effusion, secondary to catheter placement. 2. No pneumothorax. POS: [facility]
[2017-09-05] MEDS: HumaLOG 300 UNITS/3 ML VIAL SC PRN ×2 (13:42→18:36)
[2017-09-05] MEDS: Docusate 100 MG CAP PO SCH ×2 (13:45→20:20)
[2017-09-05] MEDS: metFORMIN XR 500 MG TAB PO SCH ×2 (13:45→20:21)
[2017-09-05] MEDS: Sodium Chloride 1 GM TAB PO SCH (13:45)
[2017-09-05] MEDS: Aspirin 81 mg Enteric Coated Tablet PO SCH (13:46)
[2017-09-05] MEDS: Multivitamin W/ Minerals 1 TAB PO SCH (13:46)
[2017-09-05] MEDS: Amlodipine 5 MG TAB PO SCH (13:47)
[2017-09-05] MEDS: Loratadine 10 MG TAB PO SCH (13:47)
[2017-09-05] MEDS: Famotidine 20 MG TAB PO SCH ×2 (13:49→20:20)
[2017-09-05] MEDS: predniSONE 20 MG TAB PO SCH (13:49)
--- NOTE | 2017-09-05 13:53 | PDOC.PN ---
- Subjective Encounter Start Date: 09/05/17 Encounter Start Time: 13:52 Subjective: feels much better now that he has Pleur-X catheter -: SOB improved.wants to take O2 off - Objective Resuscitation Status: Resuscitation Status FULL:Full Resuscitation MAR Reviewed: Yes Vital Signs & Weight: Vital Signs (12 hours) Temp Pulse Resp BP BP Pulse Ox 09/05/17 13:47 94 129/71 09/05/17 10:46 94 22 H 90 L 09/05/17 08:38 129/71 09/05/17 08:00 97.9 F 94 22 H 91 L 09/05/17 07:15 97.9 F 85 18 129/71 91 L 09/05/17 06:16 85 20 91 L 09/05/17 03:53 98.6 F 86 16 125/59 L 92 L Weight Weight 162 lb 1.6 oz I&O: 09/04/17 09/05/17 09/06/17 06:59 06:59 06:59 Intake Total 725 1460 Balance 725 1460 Result Diagrams: 09/03/17 05:31 09/05/17 05:22 Additional Labs: Accuchecks 09/05/17 09/05/17 09/04/17 11:21 05:36 19:42 POC Glucose 206 H 158 H 174 H 09/04/17 16:30 POC Glucose 314 H Microbiology 08/31/17 17:30 Pleural fluid Acid Fast Bacilli Smear - Final 08/31/17 17:30 Pleural fluid Body Fluid Culture - Preliminary Laboratory Tests 08/30/17 09/01/17 09/03/17 20:10 04:37 05:31 Sodium 130 L 129 L 129 L 09/04/17 09/05/17 05:27 05:22 Sodium 132 L 135 L Phys Exam - Physical Examination Constitutional: NAD HEENT: PERRLA, moist MMs, sclera anicteric, oral pharynx no lesions Neck: no nodes, no JVD, supple, full ROM Respiratory: no wheezing, no rales, no rhonchi, clear to auscultation bilateral Cardiovascular: RRR, no significant murmur, no rub, gallop Gastrointestinal: soft, non-tender, no distention, positive bowel sounds Musculoskeletal: no edema, pulses present Neurological: non-focal, normal sensation, moves all 4 limbs Psychiatric: normal affect, A&O x 3 Skin: no rash Dx/Plan (1) Fluid overload Code(s): E87.70 - FLUID OVERLOAD, UNSPECIFIED Status: Acute Qualifiers: Hypervolemia type: unspecified Qualified Code(s): E87.70 - Fluid overload, unspecified (2) Pleural effusion Code(s): J90 - PLEURAL EFFUSION, NOT ELSEWHERE CLASSIFIED Status: Acute Comment: s/p Thoracentesis (3) Hyponatremia Code(s): E87.1 - HYPO-OSMOLALITY AND HYPONATREMIA Status: Chronic (4) Respiratory distress Code(s): R06.03 - ACUTE RESPIRATORY DISTRESS Status: Resolved Comment: Metastatic Lung CA w Pleural effusion and Pulmonary edema (5) Anemia Code(s): D64.9 - ANEMIA, UNSPECIFIED Status: Chronic Qualifiers: Anemia type: unspecified type Qualified Code(s): D64.9 - Anemia, unspecified Comment: Recent Sx.Work up showed Anastomotic leak. (6) CAD (coronary artery disease) Code(s): I25.10 - ATHSCL HEART DISEASE OF [place] CORONARY ARTERY W/O ANG PCTRS Status: Chronic Qualifiers: Coronary Disease-Associated Artery/Lesion type: [place] artery [place] vs. transplanted heart: [place] heart Associated angina: without angina Qualified Code(s): I25.10 - Atherosclerotic heart disease of [place] coronary artery without angina pectoris (7) Chronic obstructive lung disease Status: Chronic (8) Diabetes mellitus type 2 in nonobese Code(s): E11.9 - TYPE 2 DIABETES MELLITUS WITHOUT COMPLICATIONS Status: Chronic (9) Hypertension Code(s): I10 - ESSENTIAL (PRIMARY) HYPERTENSION Status: Chronic Qualifiers: Hypertension type: essential hypertension Qualified Code(s): I10 - Essential (primary) hypertension (10) H/O malignant neoplasm of colon Code(s): Z85.038 - PERSONAL HISTORY OF MALIGNANT NEOPLASM OF LARGE INTESTINE Status: Chronic Comment: s/p Colectomy 2017 (11) Paroxysmal atrial fibrillation Code(s): I48.0 - PAROXYSMAL ATRIAL FIBRILLATION Status: Chronic - Plan plan discussed w/ family, PT/OT, delinquency prevention social worker, respiratory therapy, incentive spirometry, out of bed/ambulate, DVT proph w/SCDs s/p Pleur-X and feeling much better.cont nebs,po steroids. -: cont home meds as below.on ASA,BB,ALEXI-I. -: likley home tomorrow if OK w [facility].appreciate input. -: wean off o2 but he would benefit from O2 all the time.has home o2 * . Review of Systems - Review of Systems Constitutional: negative: fever, chills, sweats, weakness, malaise, other ENT: negative: Ear Pain, Ear Discharge, Nose Pain, Nose Discharge, Nose Congestion, Mouth Pain, Mouth Swelling, Throat Pain, Throat Swelling, Other Respiratory: negative: Cough, Dry, Shortness of Breath, Hemoptysis, SOB with Excertion, Pleuritic Pain, Sputum, Wheezing Cardiovascular: negative: chest pain, palpitations, orthopnea, paroxysmal nocturnal dyspnea, edema, light headedness, other Gastrointestinal: negative: Nausea, Vomiting, Abdominal Pain, Diarrhea, Constipation, Melena, Hematochezia, Other Genitourinary: negative: Dysuria, Frequency, Incontinence, Hematuria, Retention , Other Musculoskeletal: negative: Neck Pain, Shoulder Pain, Arm Pain, Back Pain, Hand Pain, Leg Pain, Foot Pain, Other Neurological: negative: Weakness, Numbness, Incoordination, Change in Speech, Confusion, Seizures, Other - Medications/Allergies Allergies/Adverse Reactions: Allergies Allergy/AdvReac Type Severity Reaction Status Date / Time Iodinated Contrast- Oral and Allergy Verified 08/30/17 23:36 IV Dye iodine Allergy Verified 08/30/17 23:36 Medications: Current Medications Hydrocodone Bitart/Acetaminophen ([place] 5/325) 1 tab PO Q4H PRN PRN Reason: Mild-Moderate Pain (1-5) Hydrocodone Bitart/Acetaminophen ([place] 5/325) 2 tab PO Q4H PRN PRN Reason: Moderate to Severe Pain (6-10) Albuterol/Ipratropium (Duoneb) 3 ml NEB [id number] [facility] Last Admin: 09/05/17 10:46 Dose: 3 ml Albuterol/Ipratropium (Duoneb) 3 ml NEB Q2H PRN PRN Reason: SOB &/or Wheezing Last Admin: 08/31/17 13:01 Dose: 3 ml Amlodipine Besylate (Norvasc) 2.[address] [facility] Last Admin: 09/05/17 13:47 Dose: 2.5 mg Aspirin (Ecotrin) [address] [facility] Last Admin: 09/05/17 13:46 Dose: 81 mg Benzonatate (Tessalon) 100 mg PO TID PRN PRN Reason: Cough Last Admin: 09/04/17 22:23 Dose: 100 mg Calcium Carbonate (Tums) 1,000 mg PO Q4H PRN PRN Reason: Heartburn or Indigestion Carvedilol (Coreg) 12.5 mg PO BID-WM [facility] Last Admin: 09/05/17 08:38 Dose: 12.5 mg Cefazolin Sodium (Ancef) 2 gm SLOW IVP 0100,0900,1700 [facility] Stop: 09/05/17 23:55 Cholecalciferol (Vitamin D3) 2,000 units PO DAILY [facility] Last Admin: 09/05/17 13:46 Dose: 2,000 units Clonidine (Catapres) 0.1 mg PO Q4H PRN PRN Reason: Systolic BP > 180 Dextrose/Water (Dextrose 50%) 25 gm SLOW IVP PRN PRN PRN Reason: Hypoglycemia Docusate Sodium (Colace) 100 mg PO BID [facility] Last Admin: 09/05/17 13:45 Dose: 100 mg Famotidine (Pepcid) 20 mg PO BID [facility] Last Admin: 09/05/17 13:49 Dose: 20 mg Fentanyl (Sublimaze) 25 mcg SLOW IVP Q2H PRN PRN Reason: Severe Pain (7-10) Glucagon (Glucagon) 1 mg IM PRN PRN PRN Reason: Hypoglycemia Dextrose/Water (D5w) 1,000 mls @ 0 mls/hr IV .Q0M PRN; As Directed PRN Reason: Hypoglycemia Insulin Human Lispro (Humalog) 0 units SC .MILD SLIDING SCALE PRN PRN Reason: Mild Correctional Scale Last Admin: 09/05/17 13:42 Dose: 3 unit Iron/Minerals/Multivitamins (Theragran M) 1 tab PO DAILY [facility] Last Admin: 09/05/17 13:46 Dose: 1 tab Lisinopril (Zestril) 5 mg PO HS [facility] Last Admin: 09/04/17 19:41 Dose: 5 mg Loratadine (Claritin) 10 mg PO DAILY [facility] Last Admin: 09/05/17 13:47 Dose: 10 mg Metformin HCl (Glucophage Xr) 500 mg PO BID [facility] Last Admin: 09/05/17 13:45 Dose: 500 mg Mometasone Furoate/Formoterol Fumar (Dulera 200 Mcg/5 Mcg Inhaler) 2 puff INH BID-RT [facility] Last Admin: 09/05/17 06:19 Dose: 2 puff Nitroglycerin (Nitrostat) 0.4 mg PO Q5MIN PRN PRN Reason: Chest Pain Ondansetron HCl (Zofran Odt) 4 mg PO Q6H PRN PRN Reason: Nausea/Vomiting Ondansetron HCl (Zofran) 4 mg IVP Q6H PRN PRN Reason: Nausea/Vomiting Pioglitazone HCl (Actos) 30 mg PO QAM [facility] Last Admin: 09/04/17 09:42 Dose: 30 mg Prednisone (Prednisone) 20 mg PO DAILY [facility] Last Admin: 09/05/17 13:49 Dose: 20 mg Simvastatin (Zocor) 10 mg PO HS [facility] Last Admin: 09/04/17 19:42 Dose: 10 mg Sodium Chloride (Sodium Chloride) 1 gm PO DAILY [facility] Last Admin: 09/05/17 13:45 Dose: 1 gm Sodium Chloride (Flush - Normal Saline) 10 ml IVF Q12HR [facility] Last Admin: 09/05/17 08:39 Dose: 10 ml Sodium Chloride (Flush - Normal Saline) 10 ml IVF PRN PRN PRN Reason: Saline Flush Temazepam (Restoril) 15 mg PO HSPRN PRN PRN Reason: Anxiety Last Admin: 09/04/17 22:23 Dose: 15 mg
[2017-09-05] MEDS: Pioglitazone HCl 15 MG TAB PO SCH (14:18)
[2017-09-05] MEDS ORDERED: Ketorolac Tromethamine 30 MG/ML VIAL ONE (14:24)
[2017-09-05] MEDS ORDERED: CEFAZOLIN/Water 2 GM/20 ML SYRINGE SLOW IVP SCH (17:00)
--- NOTE | 2017-09-05 18:51 | PRG ---
DATE OF SERVICE: 09/05/2017 SUBJECTIVE: Mr. Lorenzana underwent placement of his tunnel catheter today. He has no complaints. OBJECTIVE: VITAL SIGNS: He is afebrile, heart rate 87, blood pressure 106/66, respiratory rate 20, oximetry is 93% on 4 liters. LUNGS: Remarkable for a coarse equal breath sounds. CARDIOVASCULAR: Regular rhythm. ABDOMEN: Soft. IMPRESSION AND PLAN: 1. Chronic obstructive pulmonary disease. 2. Rapidly progressive metastatic colon cancer. He has had 1 course of his cancer treatment. He is due for second treatment in 2 weeks. We instructed on drainage of his pleural space. I have recommended that he not draining just on a ro utine basis, but we would recommend draining this when he starts getting short of breath. I have dis cussed protein losses through pleural fluid. Hopefully, with his chemotherapy ongoing, we will see a response with decreased evidence of pleural involvement and decreased requirement for pleural fluid drainage.
[2017-09-05] MEDS: Simvastatin 20 MG TAB PO SCH (20:19)
[2017-09-05] MEDS: Lisinopril 5 MG TAB PO SCH (20:20)
[2017-09-05] MEDS: Temazepam 15 MG CAP PO PRN (22:03)
[2017-09-05] MEDS: Benzonatate 100 MG CAP PO PRN (22:03)
[2017-09-06] MEDS: Mometasone/Formoterol 120 PUFF INHALER INH SCH (08:05)
[2017-09-06] MEDS: Pioglitazone HCl 15 MG TAB PO SCH (09:12)
[2017-09-06] MEDS: Multivitamin W/ Minerals 1 TAB PO SCH (09:13)
[2017-09-06] MEDS: metFORMIN XR 500 MG TAB PO SCH (09:13)
[2017-09-06] MEDS: Loratadine 10 MG TAB PO SCH (09:14)
[2017-09-06] MEDS: Sodium Chloride 1 GM TAB PO SCH (09:14)
[2017-09-06] MEDS: Famotidine 20 MG TAB PO SCH (09:14)
[2017-09-06] MEDS: Docusate 100 MG CAP PO SCH (09:14)
[2017-09-06] MEDS: predniSONE 20 MG TAB PO SCH (09:15)
[2017-09-06] MEDS: Aspirin 81 mg Enteric Coated Tablet PO SCH (09:15)
[2017-09-06] MEDS: Amlodipine 5 MG TAB PO SCH (09:15)
[2017-09-06] MEDS: Carvedilol 6.25 MG TAB PO SCH (10:32)
--- NOTE | 2017-09-06 12:19 | PRG ---
DATE OF SERVICE: 09/06/2017 Daniel Lorenzana says he feels about the same as yesterday. His heart rate is in the 80s. He is afe brile, respiratory rate is 12, oximetry is 92 on 4 liters, blood pressure 121/72. He is still receiv ing his nebulizer treatments. He has equal breath sounds. Heart, regular rhythm. Abdomen is soft. He is still receiving his nebulizer treatments and his prednisone. We recommend he stay on 20 mg of prednisone after he leaves. Continue nebulizer treatments every 4 h ours. He has been taught today how to use his PleurX catheter.
--- NOTE | 2017-09-06 12:23 | PDOC.PN ---
- Subjective Encounter Start Date: 09/06/17 Encounter Start Time: 12:21 Subjective: feels short of breath - Objective Resuscitation Status: Resuscitation Status FULL:Full Resuscitation MAR Reviewed: Yes Vital Signs & Weight: Vital Signs (12 hours) Temp Pulse Resp BP BP BP Pulse Ox 09/06/17 11:10 97.7 F 81 18 125/71 92 L 09/06/17 10:32 121/72 09/06/17 09:15 85 121/72 09/06/17 08:05 84 12 09/06/17 08:00 98.7 F 85 18 95 09/06/17 07:47 92 L 09/06/17 07:46 84 12 09/06/17 07:10 98.7 F 85 18 121/72 95 09/06/17 04:00 97.5 F L 84 18 118/65 94 L 09/06/17 01:34 83 20 92 L Weight Weight 159 lb 9.6 oz I&O: 09/05/17 09/06/17 09/07/17 06:59 06:59 06:59 Intake Total 1460 1480 Balance 1460 1480 Result Diagrams: 09/03/17 05:31 09/05/17 05:22 Additional Labs: Accuchecks 09/06/17 09/06/17 09/05/17 11:33 05:40 21:20 POC Glucose 205 H 149 H 243 H 09/05/17 15:34 POC Glucose 275 H Microbiology 08/31/17 17:30 Pleural fluid Body Fluid Culture - Final 08/31/17 17:30 Pleural fluid Acid Fast Bacilli Smear - Final Radiology Reviewed by me: Yes Phys Exam - Physical Examination Constitutional: NAD HEENT: PERRLA, moist MMs, sclera anicteric, TM's clear, oral pharynx no lesions , 2+ tonsils Neck: no nodes, no JVD, supple, full ROM Respiratory: no wheezing, no rales, no rhonchi, clear to auscultation bilateral decreased at bases Cardiovascular: RRR, no significant murmur Gastrointestinal: soft, non-tender, no distention, positive bowel sounds Musculoskeletal: no edema, pulses present Neurological: non-focal, normal sensation, moves all 4 limbs Dx/Plan (1) Fluid overload Code(s): E87.70 - FLUID OVERLOAD, UNSPECIFIED Status: Resolved Qualifiers: Hypervolemia type: unspecified Qualified Code(s): E87.70 - Fluid overload, unspecified (2) Pleural effusion Code(s): J90 - PLEURAL EFFUSION, NOT ELSEWHERE CLASSIFIED Status: Acute Comment: s/p Thoracentesis.malignant cells in Fluid (3) Hyponatremia Code(s): E87.1 - HYPO-OSMOLALITY AND HYPONATREMIA Status: Chronic (4) Respiratory distress Code(s): R06.03 - ACUTE RESPIRATORY DISTRESS Status: Resolved Comment: Metastatic Lung CA w Pleural effusion and Pulmonary edema (5) Anemia Code(s): D64.9 - ANEMIA, UNSPECIFIED Status: Chronic Qualifiers: Anemia type: unspecified type Qualified Code(s): D64.9 - Anemia, unspecified Comment: Recent Sx.Work up showed Anastomotic leak. (6) CAD (coronary artery disease) Code(s): I25.10 - ATHSCL HEART DISEASE OF [place] CORONARY ARTERY W/O ANG PCTRS Status: Chronic Qualifiers: Coronary Disease-Associated Artery/Lesion type: [place] artery [place] vs. transplanted heart: [place] heart Associated angina: without angina Qualified Code(s): I25.10 - Atherosclerotic heart disease of [place] coronary artery without angina pectoris (7) Chronic obstructive lung disease Status: Chronic (8) Diabetes mellitus type 2 in nonobese Code(s): E11.9 - TYPE 2 DIABETES MELLITUS WITHOUT COMPLICATIONS Status: Chronic (9) Hypertension Code(s): I10 - ESSENTIAL (PRIMARY) HYPERTENSION Status: Chronic Qualifiers: Hypertension type: essential hypertension Qualified Code(s): I10 - Essential (primary) hypertension (10) H/O malignant neoplasm of colon Code(s): Z85.038 - PERSONAL HISTORY OF MALIGNANT NEOPLASM OF LARGE INTESTINE Status: Chronic Comment: s/p Colectomy 2017 (11) Paroxysmal atrial fibrillation Code(s): I48.0 - PAROXYSMAL ATRIAL FIBRILLATION Status: Chronic - Plan PT/OT, out of bed/ambulate, DVT proph w/SCDs s/p pleur-x catheter .teaching done as to how & when to drian -: c/o SOB and wants to stay in house tonight for monitoring of symptoms -: appreciate PCCM input. -: pt notified of Pleural fluid path reports -: o/w hemodynamically stable. * .Home meds as below. * DC home done if feeling better by evening ,but pt somewhat reluctant Review of Systems - Review of Systems Constitutional: negative: fever, chills, sweats, weakness, malaise, other ENT: negative: Ear Pain, Ear Discharge, Nose Pain, Nose Discharge, Nose Congestion, Mouth Pain, Mouth Swelling, Throat Pain, Throat Swelling, Other Respiratory: SOB with Excertion. negative: Cough, Dry, Shortness of Breath, Hemoptysis, Pleuritic Pain, Sputum, Wheezing Cardiovascular: negative: chest pain, palpitations, orthopnea, paroxysmal nocturnal dyspnea, edema, light headedness, other Gastrointestinal: negative: Nausea, Vomiting, Abdominal Pain, Diarrhea, Constipation, Melena, Hematochezia, Other Genitourinary: negative: Dysuria, Frequency, Incontinence, Hematuria, Retention , Other Musculoskeletal: negative: Neck Pain, Shoulder Pain, Arm Pain, Back Pain, Hand Pain, Leg Pain, Foot Pain, Other Skin: negative: Rash, Lesions, [place], Bruising, Other Neurological: negative: Weakness, Numbness, Incoordination, Change in Speech, Confusion, Seizures, Other - Medications/Allergies Allergies/Adverse Reactions: Allergies Allergy/AdvReac Type Severity Reaction Status Date / Time Iodinated Contrast- Oral and Allergy Verified 08/30/17 23:36 IV Dye iodine Allergy Verified 08/30/17 23:36 Medications: Current Medications Hydrocodone Bitart/Acetaminophen ([place] 5/325) 1 tab PO Q4H PRN PRN Reason: Mild-Moderate Pain (1-5) Hydrocodone Bitart/Acetaminophen ([place] 5/325) 2 tab PO Q4H PRN PRN Reason: Moderate to Severe Pain (6-10) Albuterol/Ipratropium (Duoneb) 3 ml NEB [id number] [facility] Last Admin: 09/06/17 11:10 Dose: 3 ml Albuterol/Ipratropium (Duoneb) 3 ml NEB Q2H PRN PRN Reason: SOB &/or Wheezing Last Admin: 08/31/17 13:01 Dose: 3 ml Amlodipine Besylate (Norvasc) 2.[address] [facility] Last Admin: 09/06/17 09:15 Dose: 2.5 mg Aspirin (Ecotrin) [address] [facility] Last Admin: 09/06/17 09:15 Dose: 81 mg Benzonatate (Tessalon) 100 mg PO TID PRN PRN Reason: Cough Last Admin: 09/05/17 22:03 Dose: 100 mg Calcium Carbonate (Tums) 1,000 mg PO Q4H PRN PRN Reason: Heartburn or Indigestion Carvedilol (Coreg) 12.5 mg PO BID-WM [facility] Last Admin: 09/06/17 10:32 Dose: 12.5 mg Cholecalciferol (Vitamin D3) 2,000 units PO DAILY [facility] Last Admin: 09/06/17 09:13 Dose: 2,000 units Clonidine (Catapres) 0.1 mg PO Q4H PRN PRN Reason: Systolic BP > 180 Dextrose/Water (Dextrose 50%) 25 gm SLOW IVP PRN PRN PRN Reason: Hypoglycemia Docusate Sodium (Colace) 100 mg PO BID [facility] Last Admin: 09/06/17 09:14 Dose: 100 mg Famotidine (Pepcid) 20 mg PO BID [facility] Last Admin: 09/06/17 09:14 Dose: 20 mg Fentanyl (Sublimaze) 25 mcg SLOW IVP Q2H PRN PRN Reason: Severe Pain (7-10) Glucagon (Glucagon) 1 mg IM PRN PRN PRN Reason: Hypoglycemia Dextrose/Water (D5w) 1,000 mls @ 0 mls/hr IV .Q0M PRN; As Directed PRN Reason: Hypoglycemia Insulin Human Lispro (Humalog) 0 units SC .MILD SLIDING SCALE PRN PRN Reason: Mild Correctional Scale Last Admin: 09/05/17 18:36 Dose: 4 unit Iron/Minerals/Multivitamins (Theragran M) 1 tab PO DAILY [facility] Last Admin: 09/06/17 09:13 Dose: 1 tab Lisinopril (Zestril) 5 mg PO HS [facility] Last Admin: 09/05/17 20:20 Dose: 5 mg Loratadine (Claritin) 10 mg PO DAILY [facility] Last Admin: 09/06/17 09:14 Dose: 10 mg Metformin HCl (Glucophage Xr) 500 mg PO BID [facility] Last Admin: 09/06/17 09:13 Dose: 500 mg Mometasone Furoate/Formoterol Fumar (Dulera 200 Mcg/5 Mcg Inhaler) 2 puff INH BID-RT [facility] Last Admin: 09/06/17 08:05 Dose: 2 puff Nitroglycerin (Nitrostat) 0.4 mg PO Q5MIN PRN PRN Reason: Chest Pain Ondansetron HCl (Zofran Odt) 4 mg PO Q6H PRN PRN Reason: Nausea/Vomiting Ondansetron HCl (Zofran) 4 mg IVP Q6H PRN PRN Reason: Nausea/Vomiting Pioglitazone HCl (Actos) 30 mg PO QAM [facility] Last Admin: 09/06/17 09:12 Dose: 30 mg Prednisone (Prednisone) 20 mg PO DAILY [facility] Last Admin: 09/06/17 09:15 Dose: 20 mg Simvastatin (Zocor) 10 mg PO HS [facility] Last Admin: 09/05/17 20:19 Dose: 10 mg Sodium Chloride (Sodium Chloride) 1 gm PO DAILY [facility] Last Admin: 09/06/17 09:14 Dose: 1 gm Sodium Chloride (Flush - Normal Saline) 10 ml IVF Q12HR [facility] Last Admin: 09/06/17 09:12 Dose: 10 ml Sodium Chloride (Flush - Normal Saline) 10 ml IVF PRN PRN PRN Reason: Saline Flush Temazepam (Restoril) 15 mg PO HSPRN PRN PRN Reason: Anxiety Last Admin: 09/05/17 22:03 Dose: 15 mg
[2017-09-06] MEDS: Benzonatate 100 MG CAP PO PRN (12:37)
[2017-09-06 16:51] VITALS: BP 108/70; TEMP 97.4
--- NOTE | 2017-09-07 06:05 | DIS ---
DATE OF ADMISSION: 08/30/2017 DATE OF DISCHARGE: 09/06/2017 CONDITION AT THE TIME OF DISCHARGE: Stable and improved. DISCHARGE DIAGNOSES: 1. Recurrent pleural effusion secondary to adenocarcinoma of the lung, status post thoracentesis. 2. Fluid overload, resolved with IV Lasix. 3. Hyponatremia secondary to chronic lung disease. 4. Acute respiratory distress, resolved. 5. Chronic anemia. 6. Coronary artery disease. 7. Chronic obstructive pulmonary disease. 8. Diabetes mellitus, type 2. 9. Hypertension. 10. History of colon cancer, status post colectomy in 2017. 11. History of paroxysmal atrial fibrillation. DISCHARGE MEDICATIONS: Prednisone 20 mg daily, Zyrtec 10 mg daily, Coreg 12.5 mg p.o. b.i.d., aspiri n 81 mg daily, Norvasc 2.5 mg daily, Restoril 15 mg at bedtime as needed, simvastatin 10 mg daily, Ac tos 2 tablets daily, multivitamin daily, lisinopril 5 mg daily, DuoNeb every 2 hours as needed, vitam in D3 daily, glucosamine daily, Incruse Ellipta one inhalation daily, metformin 500 mg p.o. b.i.d. PRIMARY CARE PHYSICIAN: Chris Coon M.D. CONSULTATIONS IN-HOUSE: Include Pulmonary Critical Care Medicine doctors, Dr. Rhodes, Dr. Orr and Nataly Scott. PROCEDURES DONE IN THE HOSPITAL: Include: 1. Chest x-ray upon presentation, which shows bilateral patchy alveolar infiltrates. 2. Lower extremity ultrasound, which is negative for any evidence of DVT on either legs. 3. Thoracentesis of the left pleural space. 4. Placement of PleurX catheter for recurrent left-sided pleural effusion by Dr. Haas. HISTORY OF PRESENTING ILLNESS: Mr. Lorenzana is a pleasant 77-year-old male with history o f COPD, chronic respiratory failure on home oxygen, nonsmall cell lung carcinoma and history of colon cancer, who presented to the emergency room with complaints of shortness of breath of 3-4 day durati on. He also had cough and wheezing, complains upon presentation and leg swelling. In the ER, his est x-ray was consistent with left-sided pleural effusion, which has increased since the last exam ea ier this year. He also had bilateral patchy alveolar infiltrates. He was admitted with acute hypo xic respiratory failure and pulmonary Medicine was consulted. [facility] COURSE: The patient was continued on nebulizers and Dr. Rhodes initially saw the patient. He recommended a thoracentesis for recurrent pleural effusion, which was done. Eventually the patho logy came back as adenocarcinoma consistent with lung primary. Recently the patient was told that he has worsening of his metastatic adenocarcinoma of the lungs. Dr. Orr and Dr. Scott also continued to see the patient, but despite the thoracentesis, the patient had reaccumulation of the fluid and wo rsening of his respiratory distress. Lasix was used with minimal effect. Eventually, the decision w as made that the PleurX catheter will be beneficial for this patient and this was done yesterday on 0 09/05/2017. He had significant improvement in his symptoms with that. He was taught how to use it an d drain it and as of this morning he is back to his baseline. He is cleared for discharge today. He will follow up with his primary care physician and district director as an outpatient. Please see [facility] progress note from today's date for further detail including the [id number] interaction. Total time spent in the discharge 32 minutes.
== END 2017-09-06 16:35 | disposition home or self-care (01) | DRG 180 ==
LOC: SCSER 19:28 → 2NO 21:55 → ONC 08-31 18:41
PROVIDERS: ADMIT Internal Medicine; ATTEND Internal Medicine
PROC: 0W9B3ZX Drainage of Left Pleural Cavity, Percutaneous Approach, Diagnostic (ICD-10-PCS; principal; 2017-08-31)
PROC: 0W9B30Z Drainage of Left Pleural Cavity with Drainage Device, Percutaneous Approach (ICD-10-PCS; 2017-09-05)
DX: C34.32 Malignant neoplasm of lower lobe, left bronchus or lung (principal); J96.21 Acute and chronic respiratory failure with hypoxia; J91.0 Malignant pleural effusion; E87.1 Hypo-osmolality and hyponatremia; J44.9 Chronic obstructive pulmonary disease, unspecified; E87.70 Fluid overload, unspecified; I48.0 Paroxysmal atrial fibrillation; Z99.81 Dependence on supplemental oxygen; E78.5 Hyperlipidemia, unspecified; I12.9 Hypertensive chronic kidney disease with stage 1 through stage 4 chronic kidney disease, or unspecified chronic kidney disease; N18.3 Chronic kidney disease, stage 3 (moderate); E11.22 Type 2 diabetes mellitus with diabetic chronic kidney disease; I25.2 Old myocardial infarction; Z85.038 Personal history of other malignant neoplasm of large intestine; Z87.891 Personal history of nicotine dependence; Z95.1 Presence of aortocoronary bypass graft; Z79.82 Long term (current) use of aspirin; Z79.899 Other long term (current) drug therapy; Z90.2 Acquired absence of lung [part of]; Z90.49 Acquired absence of other specified parts of digestive tract
CPT/HCPCS: 36415; 36416; 71045; 71046; 80048; 80053; 82553; 82945; 83615; 83880; 83986; 84157; 84484; 85025; 85060; 85379; 87070; 87116; 87205; 87206; 88112; 88305; 89051; 93005; 93970; 94640; 94760; A4216; C1729; J1885; J1940; J2001; J2250; J3010; J7506; J7611; J7620

== ENCOUNTER 2017-09-28 12:38 | Outpatient (CLI) | payer MEDICARE ==
--- NOTE | 2017-09-28 14:38 | RAD ---
CHEST 2 VIEWS: HISTORY: Lung cancer. COMPARISON: 09/07/17. FINDINGS: Cardiac silhouette remains enlarged. Pulmonary vasculature is engorged. Widespread reticulonodular interstitial prominence and patchy areas of parenchymal opacity are similar in appearance to the prev ious exam. Right pleural fluid is now more apparent. Left thoracostomy tube remains in place. Medi astinum is midline with postoperative changes and aortic calcification. Pleural thickening along the left lateral chest wall is similar in appearance to the prior study. IMPRESSION: 1. Interval increase right pleural fluid, small amount. 2. Left pleural fluid, chest tube, and other findings are otherwise stable. POS: DUSTY
== END 2017-09-28 12:39 | disposition home or self-care (01) ==
LOC: RAD 12:38
PROVIDERS: ATTEND Thoracic Surgery (Cardiothoracic Vascular Surgery)
DX: C34.32 Malignant neoplasm of lower lobe, left bronchus or lung (principal); J81.1 Chronic pulmonary edema
CPT/HCPCS: 71046

== ENCOUNTER 2017-09-30 11:53 | Inpatient (IN) | payer MEDICARE, OTHER ==
[2017-09-30 12:42] LABS: ALT (SGPT) 13 U/L (8-55); AST (SGOT) 8 U/L (5-34); Albumin 2.8 g/dL (3.4-4.8); Alkaline Phosphatase 54 U/L (40-150); Anion Gap 15 mmol/L (10-20); BUN (Urea Nitrogen) 39 mg/dL (8.4-25.7); Bilirubin, Total 0.2 mg/dL (0.2-1.2); CKMB 0.8 ng/mL (0-6.6); Calc. Creatinine Clearance 0 mL/min (70-130); Calcium 9.5 mg/dL (7.8-10.44); Carbon Dioxide 28 mmol/L (23-31); Chloride 97 mmol/L (98-107); Estimated GFR-MDRD 58; Globulin 2.2 g/dL (2.4-3.5); Glucose 270 mg/dL (83-110); Lipase 12 U/L (8-78); Potassium 6.3 mmol/L (3.5-5.1); Sodium 134 mmol/L (136-145); Troponin I 0.012 ng/mL (< 0.028)
[2017-09-30 12:50] LABS: #Basophils 0.3 thou/uL (0.0-0.2); #Eosinphils 0.5 thou/uL (0.0-0.7); #Lymphocytes 0.6 thou/uL (1.20-3.40); #Monocytes 0.8 thou/uL (0.11-0.59); #Neutrophils 12.9 thou/uL (1.40-6.50); %Basophils 1.7 % (0.0-1.0); %Eosinophils 3.4 % (0.0-10.0); %Lymphocytes 3.7 % (21.0-51.0); %Monocytes 5.2 % (0.0-10.0); %Neutrophils 86.1 % (42.0-75.0); Hemoglobin 14.3 g/dL (14.0-18.0); Mean Corpuscular HGB CONC 33.2 g/dL (32.0-36.0); Mean Corpuscular Hemoglobin 32.2 pg (27.0-31.0); Mean Corpuscular Volume 97.1 fl (80.0-94.0); Mean Platelet Volume 7.7 fL (7.4-10.4); Platelet Count 300 thou/uL (130-400); RBC Distribution Width 12.5 % (11.5-14.5); Red Blood Cell (RBC) Count 4.46 mill/uL (4.70-6.10); White Blood Cell (WBC) Count 14.9 thou/uL (4.8-10.8)
[2017-09-30] MEDS ORDERED: Calcium Chloride 1 GM/10 ML Abboject SYRINGE ONE (13:01)
[2017-09-30] MEDS ORDERED: Furosemide 40 MG/4 ML VIAL ONE (13:04)
--- NOTE | 2017-09-30 14:06 | RAD ---
CHEST 1 VIEW PORTABLE: Date: 09/30/17 HISTORY: Lung cancer. Dyspnea. COMPARISON: 09/28/17. FINDINGS: Heart size is enlarged. There are areas of nodularity in the right lower lobe and mid lung field, and also some changes in the left mid lung field. Also, pleural changes in the left lung and some minima l blunting to the right costophrenic angle. Given the differences in technique, there appears to be f airly minimal interval change. There is slight increased obscuration to the left heart border, but pa rt of this may be technique related rather than any definite acute process. PA and lateral chest film may be helpful in further assessment. IMPRESSION: 1. Cardiomegaly with postop sternotomy change. 2. Nodular mass-like areas in the right lung base and right mid lung field. There is obscuration mark ng the left heart border with a left-sided chest tube in place, with left-sided effusion. Slight incr eased obscuration to the left heart border is noted, some of which may be technique related. POS: DUSTY
[2017-09-30] MEDS ORDERED: Azithromycin 500 MG VIAL ONE (14:26)
[2017-09-30] MEDS ORDERED: cefTRIAXone\\ROCEPHIN 1 GM VIAL ONE (14:26)
[2017-09-30] MEDS ORDERED: Water For Inject, Bacteriostat 30 ML ONE (14:33)
[2017-09-30] MEDS ORDERED: Zolpidem Tartrate 5 MG TAB PO PRN (15:56)
[2017-09-30] MEDS ORDERED: Chloraseptic Spray 180 ml Bottle PO PRN (15:56)
[2017-09-30] MEDS ORDERED: Sodium Chloride 0.65% Nasal 44 ML BOT EA NARE PRN (15:56)
[2017-09-30] MEDS ORDERED: Eucerin (Mineral Oil/Petrolatum,White) 30 gm Jar TOP PRN (15:56)
[2017-09-30] MEDS ORDERED: Ondansetron HCl/PF 4 MG/2 ML Vial IVP PRN (15:56)
[2017-09-30] MEDS ORDERED: Diabetic Tussin 200 MG/10 ML UDCUP PO PRN (15:56)
[2017-09-30] MEDS ORDERED: Loperamide HCl 2 MG CAP PO PRN (15:56)
[2017-09-30] MEDS ORDERED: Acetaminophen 325 MG TAB PO PRN (15:56)
[2017-09-30] MEDS ORDERED: Milk Of Magnesia 30 ML UDCUP PO PRN (15:56)
[2017-09-30] MEDS ORDERED: Mag-Al 1200 mg/1200 mg/30 ML UDCUP PO PRN (15:56)
[2017-09-30] MEDS ORDERED: HYDROcodone/Acetaminophen 5/325 mg Tablet PO PRN (15:56)
[2017-09-30] MEDS ORDERED: hydrALAZINE 20 MG/ML VIAL SLOW IVP PRN (15:56)
[2017-09-30] MEDS ORDERED: Loratadine 10 MG TAB PO PRN (15:56)
[2017-09-30] MEDS ORDERED: Ondansetron ODT 4 MG TAB PO PRN (15:56)
[2017-09-30] MEDS ORDERED: Dextrose 5% in Water 1,000 ML IV PRN (15:56)
[2017-09-30] MEDS ORDERED: Senokot 8.6 MG TAB PO PRN (15:56)
[2017-09-30] MEDS ORDERED: Artificial Tears 18 DROP/0.9 ML EA EYE PRN (15:56)
[2017-09-30] MEDS ORDERED: Dextrose 50% Abboject 50 ML SYRINGE SLOW IVP PRN (15:56)
--- NOTE | 2017-09-30 16:06 | HP ---
PRIMARY CARE PHYSICIAN: Chris Coon M.D. PRIMARY PASSENGER TRAIN BRAKER: Dr. Scott. PRIMARY ONCOLOGIST: Dr. De La Rosa. REASON FOR ADMISSION: Increasing shortness of breath. HISTORY OF PRESENT ILLNESS: A 77-year-old male who has underlying history of chronic respiratory failure and he is using home oxygen. Despite that, he was feeling that he is not getting enough oxygen and he was having increasing shortness of breath for the last couple of days. Patient was feeling more shortness of breath this morning when he was accidentally discontinued his oxygen when his changed the humidifier on it and this was not discovered up until 1 hour prior to going to emergency room when they were changing oxygen tank. Patient started using oxygen, but his shortness of breath did not improve and that is why they decided to go to emergency room. When he came to ER, he was saturating only 61% on room air. He was tachypneic and he was also hypotensive. His chest x-ray showed pleural effusion and he reports that he drained pleural fluid this morning. He was recently admitted in our hospital on 08/31/2017 and he was discharged on 09/06/2017. He had PleurX catheter placed for malignant left pleural effusion by Dr. Haas. Patient about to see him on coming . The patient is unable to empty pleural fluid and that he is able to manage PleurX catheter. He denies any fever, but he does have cough. He does have intermittent chest discomfort from coughing. He denies any flu-like illness. He denies any sick exposure. He denies any recent travel. He denies any hemoptysis. He denies any UTI symptoms. He denies any constipation, diarrhea, melena or hematochezia. Initially, this patient was kept on nonrebreather oxygen at the [facility], but that did not improve his shortness of breath and that is why he required CPAP and subsequently we decided to admit this patient in the hospital in [facility] for acute on chronic respiratory failure. Routine blood test also showed hyperkalemia. At [facility] , he was given Solu-Medrol 40 mg, Zithromax 500 mg, Rocephin 1 gram, Lasix 40 mg , DuoNeb therapy x2, calcium chloride 1 gram and IV fluid. Subsequently, he was transferred to our emergency room. REVIEW OF SYSTEMS: The following complete review of systems was negative, unless otherwise mentioned in the HPI or below: Constitutional: Weight loss or gain, ability to conduct usual activities. Skin: Rash, itching. Eyes: Double vision, pain. ENT/Mouth: Nose bleeding, neck stiffness, pain, tenderness. Cardiovascular: Palpitations, dyspnea on exertion, orthopnea. Respiratory: Shortness of breath, wheezing, cough, hemoptysis, fever or night sweats. Gastrointestinal: Poor appetite, abdominal pain, heartburn, nausea, vomiting, constipation, or diarrhea. Genitourinary: Urgency, frequency, dysuria, nocturia. Musculoskeletal: Pain, swelling. Neurologic/Psychiatric: Anxiety, depression. Allergy/Immunologic: Skin rash, bleeding tendency. Please see my HPI for pertinent positive and negative. All other review of systems reviewed and negative except as mentioned in the HPI. PAST MEDICAL HISTORY: Non-small cell lung cancer (adenocarcinoma advanced) followed by Dr. De La Rosa, COPD, chronic respiratory failure on home oxygen therapy 3-3.5 liters, hypertension, diabetes type 2, coronary artery disease required CABG, history of colon cancer, status post colectomy, dyslipidemia, hypertension. PAST SURGICAL HISTORY: Hernia repair, left PleurX catheter placement, recurrent thoracentesis, mediastinal exploration with biopsy, left lower lobectomy, laparoscopic partial colectomy, inguinal hernia repair, cardiac catheterization, CABG in 1992 and redo CABG in 2002, appendicectomy. CURRENT HOME MEDICATIONS: The patient does not have any medication with him and based on most recent discharge from hospital, patient is on amlodipine 2.5 mg daily, aspirin 81 mg p.o. daily, Coreg 12.5 mg p.o. b.i.d., cetirizine 10 mg p.o. daily, vitamin D3 2000 units p.o. daily, glucosamine chondroitin sulfate 1 capsule daily, DuoNeb q.6 hourly, lisinopril 5 mg p.o. at bedtime, metformin 500 mg twice daily with multivitamin 1 tablet p.o. daily, Actos 30 mg p.o. daily , prednisone 20 mg daily, Zocor 10 mg p.o. at bedtime, Restoril 15 mg p.o. at bedtime, Incruse Ellipta inhalation daily. ALLERGIES: IODINATED CONTRAST MEDIA and IODINE. SOCIAL HISTORY: Patient lives at home. He is a former smoker. He currently denies any smoking. No history of alcohol or other illicit drug abuse. FAMILY HISTORY: Negative for any premature coronary artery disease, stroke or cancer. EMERGENCY ROOM COURSE: Patient has received Solu-Medrol 40 mg, Rocephin 1 gram , azithromycin 500 mg, IV fluid 1 liter, Lasix 40 mg, calcium chloride 1 g and DuoNeb therapy. PHYSICAL EXAMINATION: VITAL SIGNS: On arrival, lowest blood pressure is 90/63, pulse 86, respiratory rate 26, saturation 61% on room air and 100% on CPAP. Weight 74.3 kilograms. GENERAL: Patient is currently alert, awake, mild respiratory distress, nontoxic appearing. HEAD: Normocephalic, atraumatic. EYES: Pupils round, reactive to light. Extraocular muscles intact. No nystagmus. ENT: Oropharynx within normal limits. Moist mucous membranes. No oral lesion. No pharyngeal erythema, no exudate. NECK: Supple, no JVD, no thyromegaly, no carotid bruit, no meningeal signs of irritation. LUNGS: Air entry reduced significantly on both lung ritter. He has air entry reduced, more on the left side. He has PleurX catheter on the left side. No accessory muscles of respiration in use. No wheezing or rhonchi. No obvious rales noted. CARDIAC: S1 and S2 appears regular. No murmur, no gallop, no rub. ABDOMEN: Soft, bowel sounds present, nontender, nondistended. No organomegaly , no mass, no suprapubic tenderness. BACK: Examination unremarkable, no CVA tenderness. EXTREMITIES: Upper extremity passive movements of all joints are normal. Lower extremity, trace bilateral pitting edema noted. Good distal pulsation. SKIN: No skin rash. HEMATOLOGICAL SYSTEM: No lymphadenopathy. PSYCHIATRIC: Normal affect. NEUROLOGIC: Nonfocal examination. He moves all 4 limbs. Plantar bilateral flexor. PSYCHIATRIC: Normal affect. IMAGING DATA AND SIGNIFICANT LABORATORY DATA: 1. EKG showing normal sinus rhythm, T-wave changes. 2. Chest x-ray showing cardiomegaly nodularity and pleural changes on the right side, pleural effusion on the left side, obscuration of left heart border , left-sided PleurX catheter in place. 3. CBC: WBC 14.9, hemoglobin 14.3, platelets 300 with a left shift. 4. BMP: Sodium 134, potassium 6.3, chloride 97, carbon dioxide 28, anion gap 15, BUN 39, creatinine 1.22, glucose 270, calcium 9.5. 5. LFT: AST 8, ALT 13, alkaline phosphatase 54, albumin 2.8, lipase 12, CK-MB 0.8, troponin I 0.012, BNP 60.9. ASSESSMENT AND PLAN/IMPRESSION: 1. Respiratory distress due to underlying chronic obstructive pulmonary disease exacerbation. Underlying pneumonia cannot be entirely excluded. 2. Acute on chronic respiratory failure with hypoxia. The patient is requiring bilevel positive airway pressure. Pulmonary will be consulted and will wean off bilevel positive airway pressure as needed basis. 3. Chronic obstructive pulmonary disease exacerbation. We will treat with DuoNeb q.6 hourly and an as needed basis Pulmicort nebulization twice daily, Solu-Medrol 20 mg IV q.8 hourly. Empiric antibiotic therapy with cefepime and Levaquin. 4. Suspected pneumonia. Given leukocytosis as well as increasing shortness of breath and x-ray findings, it is very difficult to ascertain that this patient does not have any pneumonia. It could be changes related with cancer, but I will empirically start cefepime and Levaquin. We will consult Pulmonary for their opinion. 5. Hypotension, likely due to medication related and that is why we will hold on Coreg therapy for now and whenever blood pressure permits, then we will resume antihypertensive medication as per home dosage. 6. Hyperkalemia may be related with lisinopril. We will give him Kayexalate 30 grams p.o. one time dose as well as the patient is already given calcium chloride at the emergency room. We will repeat BMP tomorrow. 7. Diabetes type 2. We will continue with insulin as per sliding scale per protocol. I will continue Actos 30 mg p.o. daily, glimepiride 2 mg p.o. daily, metformin 500 mg twice daily. Diabetic diet will be given. 8. Hypoalbuminemia, likely related with chronic disease. That can explain his lower extremity pitting edema as well. 9. Coronary artery disease. We will continue aspirin 81 mg p.o. daily. We are holding Coreg because of low blood pressure. We are not giving lisinopril because of hyperkalemia. Currently, cardiac enzymes are negative and EKG unremarkable. 10. Dyslipidemia. We will continue Zocor 20 mg p.o. at bedtime. 11. Vitamin D deficiency. Continue vitamin D3 2000 units p.o. daily. 12. Left pleural effusion malignant and patient required PleurX catheter during previous admission. Patient knows how to drain pleural fluid as well and currently pleural fluid is only minimum. 13. Dyslipidemia. Continue Zocor 20 mg p.o. at bedtime. 14. Deep venous thrombosis prophylaxis, Lovenox 40 mg subcu daily. 15. Gastrointestinal prophylaxis, Pepcid 20 mg p.o. b.i.d. 16. Code status: Patient does not want poor quality of life but if he is not able to make decision at this point if want to be a DNR or not, pt's daughter is medical power of informatics application analyst. Disposition plan based on clinical course. We are expecting patient's stay in hospital more than 2 midnights. Plan of care discussed with the patient in detail. MTDD
[2017-09-30] MEDS: Cefepime 2 GM, Syringe 2.5 ML in Sodium Chloride 0.9% 10 ML SLOW IVP SCH (16:56)
[2017-09-30] MEDS: metFORMIN 500 MG TAB PO SCH ×3 (16:56→21:56)
[2017-09-30] MEDS: Budesonide 0.5 MG/2 ML NEB INH SCH (18:27)
[2017-09-30 20:25] LABS: Bilirubin Negative (Negative); Blood, Urine Negative (Negative); Clarity CLEAR (Clear); Glucose, Urine (Dipstick) 100 mg/dL (Negative); Leukocyte Negative (Negative); Nitrite Negative (Negative); Protein, Urine (Dipstick) Negative (Neg-Trace); Specific Gravity, Urine 1.017 (1.002-1.036); Urobilinogen 0.2 mg/dL (0.2-1.0)
[2017-09-30 20:26] LABS: Bacteria/HPF None Seen HPF (None Seen); Hyaline Casts/LPF 0-3 HYALINE CAST LPF (0-3 Hyaline); Pathc Cast-AUWi Flag 0.27 (0-2.49); RBC/HPF 0-3 HPF (0-3); Squamous Epithelial None Seen HPF (0-3); WBC/HPF None Seen HPF (0-3)
[2017-09-30] MEDS: Atorvastatin Calcium 10 MG TAB PO SCH (20:38)
[2017-09-30] MEDS: Famotidine 20 MG TAB PO SCH (20:38)
[2017-09-30] MEDS ORDERED: Cefepime 2 GM in Sodium Chloride 0.9% 100 ML IVPB SCH (21:00)
[2017-09-30] MEDS: HumaLOG 300 UNITS/3 ML VIAL SC PRN (22:04)
[2017-10-01 05:00] LABS: #Basophils 0.1 thou/uL (0.0-0.2); #Eosinphils 0.2 thou/uL (0.0-0.7); #Lymphocytes 0.4 thou/uL (1.20-3.40); #Monocytes 0.3 thou/uL (0.11-0.59); #Neutrophils 10.1 thou/uL (1.40-6.50); %Basophils 0.5 % (0.0-1.0); %Eosinophils 1.4 % (0.0-10.0); %Lymphocytes 3.9 % (21.0-51.0); %Monocytes 2.8 % (0.0-10.0); %Neutrophils 91.4 % (42.0-75.0); Hemoglobin 12.9 g/dL (14.0-18.0); Mean Corpuscular HGB CONC 33.4 g/dL (32.0-36.0); Mean Corpuscular Hemoglobin 33.3 pg (27.0-31.0); Mean Corpuscular Volume 99.8 fl (80.0-94.0); Mean Platelet Volume 6.6 fL (7.4-10.4); Platelet Count 272 thou/uL (130-400); RBC Distribution Width 12.5 % (11.5-14.5); Red Blood Cell (RBC) Count 3.87 mill/uL (4.70-6.10); White Blood Cell (WBC) Count 11.1 thou/uL (4.8-10.8)
[2017-10-01 05:18] LABS: ALT (SGPT) 10 U/L (8-55); AST (SGOT) 10 U/L (5-34); Albumin 2.5 g/dL (3.4-4.8); Alkaline Phosphatase 47 U/L (40-150); Anion Gap 10 mmol/L (10-20); BUN (Urea Nitrogen) 40 mg/dL (8.4-25.7); Bilirubin, Total 0.2 mg/dL (0.2-1.2); Calc. Creatinine Clearance 53 mL/min (70-130); Calcium 9.4 mg/dL (7.8-10.44); Carbon Dioxide 30 mmol/L (23-31); Chloride 95 mmol/L (98-107); Estimated GFR-MDRD 58; Globulin 1.9 g/dL (2.4-3.5); Glucose 200 mg/dL (83-110); Potassium 5.9 mmol/L (3.5-5.1); Protein, Total 4.4 g/dL (5.8-8.1); Sodium 129 mmol/L (136-145)
[2017-10-01] MEDS: Cefepime 2 GM, Syringe 2.5 ML in Sodium Chloride 0.9% 10 ML SLOW IVP SCH ×2 (06:00→17:20)
[2017-10-01] MEDS: Budesonide 0.5 MG/2 ML NEB INH SCH ×2 (06:27→18:12)
[2017-10-01] MEDS: HumaLOG 300 UNITS/3 ML VIAL SC PRN ×3 (06:31→21:10)
[2017-10-01] MEDS ORDERED: Niacin 500 MG TAB PO SCH (09:00)
[2017-10-01] MEDS ORDERED: Pioglitazone HCl 15 MG TAB PO SCH (09:00)
[2017-10-01] MEDS: Enoxaparin Sodium 40 MG/0.4 ML SYRINGE SC SCH (09:05)
[2017-10-01] MEDS: Famotidine 20 MG TAB PO SCH ×2 (09:06→21:09)
[2017-10-01] MEDS: metFORMIN 500 MG TAB PO SCH ×2 (09:07→21:09)
[2017-10-01] MEDS: Glimepiride 2 MG TAB PO SCH (09:09)
--- NOTE | 2017-10-01 09:39 | PDOC.PN ---
- Subjective Encounter Start Date: 10/01/17 Encounter Start Time: 09:30 -: old records requested/rev pt is still has dyspnea, not overall doing well, last night used bipap, saturating ok now - Objective MAR Reviewed: Yes Vital Signs & Weight: Vital Signs (12 hours) Temp Pulse Resp BP Pulse Ox 10/01/17 08:00 98.0 F 90 24 H 94 L 10/01/17 07:43 98.0 F 90 24 H 94/67 94 L 10/01/17 07:04 95 10/01/17 06:28 95 30 H 37 L 10/01/17 06:27 86 23 H 97 10/01/17 06:26 86 23 H 97 10/01/17 05:07 97.9 F 93 104/77 94 L 10/01/17 00:48 97.5 F L 86 92/56 L 95 09/30/17 23:35 84 19 97 09/30/17 23:34 87 27 H 97 09/30/17 21:02 97.8 F 87 94/51 L 94 L Weight Weight 161 lb 6.4 oz I&O: 09/30/17 10/01/17 10/02/17 05:59 06:59 06:59 Intake Total Output Total Balance Result Diagrams: 10/01/17 03:34 10/01/17 03:34 Additional Labs: Accuchecks 10/01/17 09/30/17 09/30/17 05:50 21:32 16:31 POC Glucose 204 H 222 H 221 H EKG Reviewed by me: Yes (nsr) Phys Exam - Physical Examination Constitutional: NAD HEENT: PERRLA, moist MMs, sclera anicteric Neck: no JVD, supple Respiratory: no wheezing, no rhonchi poor air entry both side pleurex cath on left side Cardiovascular: RRR, no significant murmur, no rub Gastrointestinal: soft, non-tender, no distention, positive bowel sounds Musculoskeletal: pulses present, edema present Neurological: non-focal, normal sensation, moves all 4 limbs Psychiatric: normal affect, A&O x 3 Skin: no rash, normal turgor Dx/Plan (1) Acute on chronic respiratory failure with hypoxia Code(s): J96.21 - ACUTE AND CHRONIC RESPIRATORY FAILURE WITH HYPOXIA Status: Acute (2) COPD exacerbation Code(s): J44.1 - CHRONIC OBSTRUCTIVE PULMONARY DISEASE W (ACUTE) EXACERBATION Status: Acute (3) Hyperkalemia Code(s): E87.5 - HYPERKALEMIA Status: Acute (4) Adenocarcinoma of lung, stage 4 Code(s): C34.90 - MALIGNANT NEOPLASM OF UNSP PART OF UNSP BRONCHUS OR LUNG Status: Chronic (5) CAD (coronary artery disease) Code(s): I25.10 - ATHSCL HEART DISEASE OF [place] CORONARY ARTERY W/O ANG PCTRS Status: Chronic Qualifiers: (6) Diabetes type 2, controlled Code(s): E11.9 - TYPE 2 DIABETES MELLITUS WITHOUT COMPLICATIONS Status: Chronic (7) H/O malignant neoplasm of colon Code(s): Z85.038 - PERSONAL HISTORY OF MALIGNANT NEOPLASM OF LARGE INTESTINE Status: Chronic Comment: s/p Colectomy 2016 (8) Hypertension Code(s): I10 - ESSENTIAL (PRIMARY) HYPERTENSION Status: Chronic Qualifiers: (9) Hypoalbuminemia Code(s): E88.09 - OTH DISORDERS OF PLASMA-PROTEIN METABOLISM, NEC Status: Chronic (10) Hyponatremia Code(s): E87.1 - HYPO-OSMOLALITY AND HYPONATREMIA Status: Chronic (11) Macrocytic anemia Code(s): D53.9 - NUTRITIONAL ANEMIA, UNSPECIFIED Status: Chronic (12) Malignant pleural effusion Code(s): J91.0 - MALIGNANT PLEURAL EFFUSION Status: Chronic (13) Paroxysmal atrial fibrillation Code(s): I48.0 - PAROXYSMAL ATRIAL FIBRILLATION Status: Chronic (14) Pneumonia Code(s): J18.9 - PNEUMONIA, UNSPECIFIED ORGANISM Status: Suspected - Plan cont current plan of care, continue antibiotics, respiratory therapy * continue duoneb, pulmicort, solumedrol, mucinex * continue cefepime, levaqin * medication reviewed as below * symptomatic treatment * pulmonary to see him today * home medication. Review of Systems - Review of Systems Constitutional: weakness. negative: fever, chills, sweats, malaise, other ENT: negative: Ear Pain, Ear Discharge, Nose Pain, Nose Discharge, Nose Congestion, Mouth Pain, Mouth Swelling, Throat Pain, Throat Swelling, Other Respiratory: Cough, Shortness of Breath, SOB with Excertion. negative: Dry, Hemoptysis, Pleuritic Pain, Sputum, Wheezing Cardiovascular: edema. negative: chest pain, palpitations, orthopnea, paroxysmal nocturnal dyspnea, light headedness, other Gastrointestinal: negative: Nausea, Vomiting, Abdominal Pain, Diarrhea, Constipation, Melena, Hematochezia, Other Genitourinary: negative: Dysuria, Frequency, Incontinence, Hematuria, Retention , Other Musculoskeletal: negative: Neck Pain, Shoulder Pain, Arm Pain, Back Pain, Hand Pain, Leg Pain, Foot Pain, Other Skin: negative: Rash, Lesions, [place], Bruising, Other - Medications/Allergies Allergies/Adverse Reactions: Allergies Allergy/AdvReac Type Severity Reaction Status Date / Time Iodinated Contrast- Oral and Allergy Verified 08/30/17 23:36 IV Dye iodine Allergy Verified 08/30/17 23:36 Medications: Current Medications Acetaminophen (Tylenol) 650 mg PO Q4H PRN PRN Reason: Headache/Fever or Pain Hydrocodone Bitart/Acetaminophen ([place] 5/325) 1 tab PO Q4H PRN PRN Reason: Moderate Pain (4-6) Last Admin: 10/01/17 09:07 Dose: 1 tab Al Hydroxide/Mg Hydroxide (Maalox) 30 ml PO Q6H PRN PRN Reason: Heartburn or Indigestion Albuterol/Ipratropium (Duoneb) 3 ml NEB [id number] [facility] Last Admin: 10/01/17 06:26 Dose: 3 ml Artificial Tears (Tears Naturale) 0 drop EA EYE PRN PRN PRN Reason: Dry Eyes Atorvastatin Calcium (Lipitor) 10 mg PO HS [facility] Last Admin: 09/30/17 20:38 Dose: 10 mg Budesonide (Pulmicort Neb Solution) 0.5 mg INH BID-RT [facility] Last Admin: 10/01/17 06:27 Dose: 0.5 mg Dextrose/Water (Dextrose 50%) 25 gm SLOW IVP PRN PRN PRN Reason: Hypoglycemia Enoxaparin Sodium (Lovenox) 40 mg SC 0900 [facility] Last Admin: 10/01/17 09:05 Dose: 40 mg Famotidine (Pepcid) 20 mg PO BID [facility] Last Admin: 10/01/17 09:06 Dose: 20 mg Glimepiride (Amaryl) 2 mg PO QAM[facility] Last Admin: 10/01/17 09:09 Dose: Not Given Glucagon (Glucagon) 1 mg IM PRN PRN PRN Reason: Hypoglycemia Guaifenesin (Robitussin Sf) 200 mg PO Q4H PRN PRN Reason: Cough Hydralazine HCl (Apresoline) 10 mg SLOW IVP Q4H PRN PRN Reason: Systolic BP > 180 Dextrose/Water (D5w) 1,000 mls @ 0 mls/hr IV .Q0M PRN; As Directed PRN Reason: Hypoglycemia Levofloxacin 500 mg/ Device 100 mls @ 100 mls/hr IVPB 1700 [facility] Last Admin: 09/30/17 16:57 Dose: 100 mls Cefepime HCl 2 gm/ Syringe 2.5 (ml/ Sodium Chloride) 12.5 mls @ 150 mls/hr SLOW IVP 0600,1800 [facility] Last Admin: 10/01/17 06:00 Dose: 12.5 mls Insulin Human Lispro (Humalog) 0 units SC .MODERATE SLIDING SC PRN PRN Reason: Moderate Correctional Scale Last Admin: 10/01/17 06:31 Dose: 4 unit Insulin Human Lispro (Humalog) 0 units SC .BEDTIME SLIDING SC PRN PRN Reason: Bedtime Correctional Scale Last Admin: 09/30/17 22:04 Dose: 2 unit Loperamide HCl (Imodium) 2 mg PO PRN PRN PRN Reason: Diarrhea/Loose Stools Loratadine (Claritin) 10 mg PO DAILYPRN PRN PRN Reason: Sinus Symptoms Magnesium Hydroxide (Milk Of Magnesium) 30 ml PO DAILYPRN PRN PRN Reason: Constipation Metformin HCl (Glucophage) 500 mg PO 1000,2200 [facility] Last Admin: 10/01/17 09:07 Dose: 500 mg Methylprednisolone Sodium Succinate (Solu-Medrol) 20 mg IVP Q8HR [facility] Last Admin: 10/01/17 06:01 Dose: 20 mg Mineral Oil/White Petrolatum (Eucerin Cream) 0 gm TOP BIDPRN PRN PRN Reason: Dry Skin Niacin (Niacin) 500 mg PO DAILY [facility] Last Admin: 10/01/17 09:10 Dose: Not Given Ondansetron HCl (Zofran Odt) 4 mg PO Q6H PRN PRN Reason: Nausea/Vomiting Ondansetron HCl (Zofran) 4 mg IVP Q6H PRN PRN Reason: Nausea/Vomiting Phenol (Chloraseptic [place] 180 Ml Bot) 0 ml PO PRN PRN PRN Reason: Sore Throat Pioglitazone HCl (Actos) 30 mg PO DAILY [facility] Last Admin: 10/01/17 09:05 Dose: 30 mg Senna (Senokot) 2 tab PO HSPRN PRN PRN Reason: Constipation Sodium Chloride ([place] Nasal [place] 0.65%) 0 ml EA NARE QIDPRN PRN PRN Reason: Nasal Congestion Zolpidem Tartrate (Ambien) 5 mg PO HSPRN PRN PRN Reason: Insomnia Last Admin: 09/30/17 21:56 Dose: 5 mg
--- NOTE | 2017-10-01 16:42 | CON ---
DATE OF CONSULTATION: 10/01/2017 Mr. Lorenzana is a 77-year-old male. He has been followed by me closely since he was diagnosed with recurrent non-small cell lung cancer. He recently started immunotherapy. Also, recently he had a tunneled chest tube placed on the left. He was seen in the office last week and his reported to me that his pleural drainage was decreasing. This suggested to me that maybe he was starting to respond to the immunotherapy. He has been having dyspnea on exertion ever since his recurrence of his tumor. Subsequently, he was admitted and placed on BiPAP yesterday, because of shortness of breath and hypoxemia. PAST MEDICAL HISTORY: Remarkable for colon cancer that was resected. When his colon cancer was resected, his lung cancer was identified. After recovery from his colon cancer resection, his lung cancer was addressed. PFTs showed an FEV1 of 1.44, which is 64% of predicted. He underwent a lobectomy. This was on 09/28/2017. The tumor was 6.5 cm. It invaded the visceral pleura; however, the margins were all free of tumor. There was no tumor seen in nodes. We were optimistic that maybe a reasonable chance of long-term survival. Surprisingly, in May, mediastinoscopy showed a recurrence of non-small cell lung cancer. The tumor surprisingly was 100% PD-L1 positive. He has recently undergone his immunotherapy for this, but has only had 2 or 3 courses of immunotherapy. He presented with shortness of breath and hypoxia. PAST MEDICAL HISTORY: Remarkable for, 1. Moderate obstructive lung disease, hypertension, diabetes, history of partial colon resection. 2. History of coronary artery bypass grafting in 1992 with a redo in 2002. 3. History of appendectomy and herniorrhaphy. 4. History of an inguinal hernia, leading to herniorrhaphy. 5. History of an IODINE allergy. SOCIAL HISTORY: He is a nonsmoker, nondrinker, he does not use drugs. MEDICATIONS: Have been reviewed. FAMILY HISTORY: Negative for lung disease at an early age. REVIEW OF SYSTEMS: 12 point system review remarkable only for shortness of breath, which he has had for quite some time. He was actually recently seen in the office and appeared to be stable otherwise negative. He has had no hemoptysis. PHYSICAL EXAMINATION: GENERAL: Pt is a pleasant gentleman with a recent recurrence of non- small cell lung cancer. VITAL SIGNS: He is comfortable on BiPAP. He is on 8. He is afebrile, heart rate is 86, respiratory rate is 22, oximetry is 95. HEENT: Pupils are equal. Sclerae is anicteric. NECK: Supple, no lymphadenopathy. LUNGS: Remarkable for distant breath sounds. HEART: Regular rhythm, no S3. ABDOMEN: Soft and nontender. No masses. EXTREMITIES: Without clubbing, cyanosis, or edema. LABORATORY DATA: White count 11.1, hemoglobin 12.9, platelets 272,000. Sodium 129, potassium 5.9, chloride 95, bicarbonate 30, BUN 40, creatinine 1.22. Chest radiograph, reviewed by me, shows progression of his nodules and his left basilar abnormalities. His has reported that last time she tried to drain him she only drained 100 mL; she was draining 1000 mL every few days. IMPRESSION: Probable pseudo-progression. I think it is reasonable to treat him with antibiotics and steroids, but I suspect this is part of his immunotherapy and radiographic progression, although clinically appears to be improving. The improvement of his malignant effusion and its requirement for drainage argues that he has responded to his immunotherapy. I will have Oncology see him as well. He will need intermittent noninvasive ventilation, nebulizer treatments, steroids, and antibiotics. I will be happy to follow with the other physicians caring for him. I met with family and answered all their questions as well. This is a 30 minutes critical care time. LUIS ENRIQUE
[2017-10-01] MEDS ORDERED: Lorazepam 2 MG/ML VIAL SLOW IVP PRN (18:20)
[2017-10-01 19:00] LABS: Troponin I 0.011 ng/mL (< 0.028)
[2017-10-01] MEDS: Atorvastatin Calcium 10 MG TAB PO SCH (21:09)
[2017-10-02] MEDS ORDERED: Metoprolol Tartrate 5 MG/5 ML VIAL IVP SCH (04:15)
[2017-10-02 05:56] LABS: #Eosinphils 0.1 thou/uL (0.0-0.7); #Lymphocytes 0.5 thou/uL (1.20-3.40); #Neutrophils 13.5 thou/uL (1.40-6.50); %Basophils 0.1 % (0.0-1.0); %Eosinophils 0.6 % (0.0-10.0); %Lymphocytes 3.1 % (21.0-51.0); %Monocytes 6.9 % (0.0-10.0); %Neutrophils 89.3 % (42.0-75.0); Mean Corpuscular HGB CONC 32.9 g/dL (32.0-36.0); Mean Corpuscular Hemoglobin 32.7 pg (27.0-31.0); Mean Corpuscular Volume 99.4 fl (80.0-94.0); Mean Platelet Volume 6.6 fL (7.4-10.4); Platelet Count 325 thou/uL (130-400); RBC Distribution Width 12.7 % (11.5-14.5); Red Blood Cell (RBC) Count 4.29 mill/uL (4.70-6.10); White Blood Cell (WBC) Count 15.1 thou/uL (4.8-10.8)
[2017-10-02 06:04] LABS: Anion Gap 13 mmol/L (10-20); BUN (Urea Nitrogen) 48 mg/dL (8.4-25.7); Calc. Creatinine Clearance 51 mL/min (70-130); Calcium 9.5 mg/dL (7.8-10.44); Carbon Dioxide 27 mmol/L (23-31); Chloride 97 mmol/L (98-107); Estimated GFR-MDRD 55; Glucose 246 mg/dL (83-110); Potassium 5.4 mmol/L (3.5-5.1); Sodium 132 mmol/L (136-145)
[2017-10-02] MEDS: Cefepime 2 GM, Syringe 2.5 ML in Sodium Chloride 0.9% 10 ML SLOW IVP SCH ×2 (06:13→17:45)
[2017-10-02] MEDS: HumaLOG 300 UNITS/3 ML VIAL SC PRN ×3 (06:14→21:27)
[2017-10-02] MEDS ORDERED: Digoxin 0.5 MG/2 ML AMP SLOW IVP SCH ×4 (07:30→09:00)
[2017-10-02] MEDS ORDERED: Diltiazem 125 MG in Sodium Chloride 0.9% 100 ML IVPB SCH (08:00)
--- NOTE | 2017-10-02 08:39 | CON ---
DATE OF CONSULTATION: 10/02/2017 REASON FOR CONSULTATION: Atrial fibrillation with a rapid ventricular response. HISTORY OF PRESENT ILLNESS: Mr. Peralta is a 77-year-old gentleman with history of COPD, coronary a rtery disease and congestive heart failure as well as lung cancer who developed rapid atrial fibrilla tion early this morning. The patient has had previous cardiac procedures including previous bypass surgery, he also has had re current paroxysmal atrial fibrillation. The patient was here being treated for respiratory disorder and difficulty when he went into rapid atrial fibrillation this morning. This persisted despite intr avenous diltiazem. CURRENT MEDICATIONS: 1. He was started on intravenous diltiazem. 2. He is on Lovenox. 3. Glimepiride 4. Levofloxacin. 5. Metformin. 6. Prednisone. 7. Niacin. 8. Actos. ALLERGIES: IODINE. REVIEW OF SYSTEMS: Not really obtainable. He is very short of breath and only talked in very brief sentences. He is about to be intubated. PAST MEDICAL HISTORY: 1. Coronary disease, previous bypass surgery. 2. Congestive heart failure, systolic, diastolic mixed. 3. Paroxysmal atrial fibrillation. 4. Lung cancer. FAMILY HISTORY: Negative for heart disease at a young age. SOCIAL HISTORY: Previous smoker, has stopped. PHYSICAL EXAMINATION: GENERAL: Ill-appearing elderly gentleman. VITAL SIGNS: Blood pressure 112/87, pulse 150, it is irregular. HEENT: Eyes; sclerae nonicteric. Mouth mucous remains moist. NECK: Supple, no lymphadenopathy. LUNGS: Distant. He is breathing rapidly with shallow breaths. CARDIAC: Distant, irregular, irregular. No murmur, rub or gallop. ABDOMEN: Soft, nontender. EXTREMITIES: No clubbing or cyanosis, no edema. SKIN: Warm and dry. PSYCHIATRIC: Mood and affect normal. He is a somewhat apprehensive due to his difficulty breathing. NEUROLOGIC: Grossly normal. Moves all extremities. LABORATORY AND X-RAY FINDINGS: EKG atrial fibrillation with a rapid rate. Hemoglobin is 14, potassium is 5.4, creatinine 1.28, glucose 220. Most recent BNP 60.9 on 09/30/2017 . ASSESSMENT: 1. Lung cancer. 2. Atrial fibrillation with a rapid ventricular response. 3. Previous bypass surgery. 4. Previous paroxysmal atrial fibrillation. 5. Chronic obstructive pulmonary disease, lung cancer as mentioned. PLAN: 1. He has received intravenous diltiazem. 2. Will give intravenous digoxin. 3. Further care dictated by the hospital course. It appears he will need intubation.
[2017-10-02] MEDS: Midazolam HCl 2 mg/2 ml Vial ONE ×2 (08:50→17:18)
[2017-10-02] MEDS ORDERED: Lorazepam 2 MG/ML VIAL SLOW IVP SCH (09:00)
[2017-10-02] MEDS: Budesonide 0.5 MG/2 ML NEB INH SCH (09:12)
--- NOTE | 2017-10-02 10:18 | PDOC.PN ---
- Subjective Encounter Start Date: 10/02/17 Encounter Start Time: 09:20 last night pt was in afib with rvr, metoprolol IV was given last night, he was in respiratory distress this morning, cardiology consulted for afib with RVR cardizem drip started this morning, pt was intubated this morning - Objective MAR Reviewed: Yes Vital Signs & Weight: Vital Signs (12 hours) Temp Pulse Resp BP BP Pulse Ox 10/02/17 09:15 135 H 94/68 10/02/17 09:12 136 H 16 91 L 10/02/17 07:51 150 H 112/87 10/02/17 06:12 93 10/02/17 03:53 97.4 F L 93 20 117/76 91 L 10/02/17 02:04 83 26 H 98 10/02/17 00:33 99 10/02/17 00:00 96.3 F L 94 26 H 108/74 96 Weight Weight 164 lb 12.8 oz I&O: 10/01/17 10/02/17 10/03/17 06:59 06:59 06:59 Intake Total 740 Output Total 250 Balance 490 Result Diagrams: 10/02/17 05:39 10/02/17 05:39 Additional Labs: Accuchecks 10/02/17 10/01/17 10/01/17 05:47 20:17 16:38 POC Glucose 220 H 299 H 235 H 10/01/17 10:50 POC Glucose 213 H EKG Reviewed by me: Yes (afib with rvr) Phys Exam - Physical Examination Constitutional: NAD HEENT: PERRLA, moist MMs, sclera anicteric Neck: no JVD, supple Respiratory: no rales, wheezing present reduced air entry both side Cardiovascular: no significant murmur, irregular Gastrointestinal: soft, non-tender, no distention, positive bowel sounds Musculoskeletal: pulses present, edema present Neurological: non-focal Psychiatric: normal affect Skin: no rash, normal turgor Dx/Plan (1) Acute on chronic respiratory failure with hypoxia Code(s): J96.21 - ACUTE AND CHRONIC RESPIRATORY FAILURE WITH HYPOXIA Status: Acute (2) COPD exacerbation Code(s): J44.1 - CHRONIC OBSTRUCTIVE PULMONARY DISEASE W (ACUTE) EXACERBATION Status: Acute (3) Hyperkalemia Code(s): E87.5 - HYPERKALEMIA Status: Acute (4) Adenocarcinoma of lung, stage 4 Code(s): C34.90 - MALIGNANT NEOPLASM OF UNSP PART OF UNSP BRONCHUS OR LUNG Status: Chronic (5) CAD (coronary artery disease) Code(s): I25.10 - ATHSCL HEART DISEASE OF [place] CORONARY ARTERY W/O ANG PCTRS Status: Chronic Qualifiers: (6) Diabetes type 2, controlled Code(s): E11.9 - TYPE 2 DIABETES MELLITUS WITHOUT COMPLICATIONS Status: Chronic (7) H/O malignant neoplasm of colon Code(s): Z85.038 - PERSONAL HISTORY OF MALIGNANT NEOPLASM OF LARGE INTESTINE Status: Chronic Comment: s/p Colectomy 2017 (8) Hypertension Code(s): I10 - ESSENTIAL (PRIMARY) HYPERTENSION Status: Chronic Qualifiers: (9) Hypoalbuminemia Code(s): E88.09 - OTH DISORDERS OF PLASMA-PROTEIN METABOLISM, NEC Status: Chronic (10) Hyponatremia Code(s): E87.1 - HYPO-OSMOLALITY AND HYPONATREMIA Status: Chronic (11) Macrocytic anemia Code(s): D53.9 - NUTRITIONAL ANEMIA, UNSPECIFIED Status: Chronic (12) Malignant pleural effusion Code(s): J91.0 - MALIGNANT PLEURAL EFFUSION Status: Chronic (13) Paroxysmal atrial fibrillation Code(s): I48.0 - PAROXYSMAL ATRIAL FIBRILLATION Status: Chronic (14) Pneumonia Code(s): J18.9 - PNEUMONIA, UNSPECIFIED ORGANISM Status: Suspected - Plan cont current plan of care, continue antibiotics, respiratory therapy * continue cardizem drip for rate control * pt needed intubation this morning, vent as per pulmonary * medication reviewed as below * symptomatic treatment. * continue empiric antibiotics, currently on cefepime * palliative care consulted Review of Systems - Review of Systems Constitutional: negative: fever, chills, sweats, weakness, malaise, other Respiratory: Cough, Shortness of Breath, SOB with Excertion. negative: Dry, Hemoptysis, Pleuritic Pain, Sputum, Wheezing Cardiovascular: negative: chest pain, palpitations, orthopnea, paroxysmal nocturnal dyspnea, edema, light headedness, other Gastrointestinal: negative: Nausea, Vomiting, Abdominal Pain, Diarrhea, Constipation, Melena, Hematochezia, Other Genitourinary: negative: Dysuria, Frequency, Incontinence, Hematuria, Retention , Other Musculoskeletal: negative: Neck Pain, Shoulder Pain, Arm Pain, Back Pain, Hand Pain, Leg Pain, Foot Pain, Other Skin: negative: Rash, Lesions, [place], Bruising, Other - Medications/Allergies Allergies/Adverse Reactions: Allergies Allergy/AdvReac Type Severity Reaction Status Date / Time Iodinated Contrast- Oral and Allergy Verified 08/30/17 23:36 IV Dye iodine Allergy Verified 08/30/17 23:36 Medications: Current Medications Acetaminophen (Tylenol) 650 mg PO Q4H PRN PRN Reason: Headache/Fever or Pain Hydrocodone Bitart/Acetaminophen ([place] 5/325) 1 tab PO Q4H PRN PRN Reason: Moderate Pain (4-6) Last Admin: 10/01/17 09:07 Dose: 1 tab Al Hydroxide/Mg Hydroxide (Maalox) 30 ml PO Q6H PRN PRN Reason: Heartburn or Indigestion Albuterol/Ipratropium (Duoneb) 3 ml NEB [id number] Last Admin: 10/02/17 09:12 Dose: 3 ml Artificial Tears (Tears Naturale) 0 drop EA EYE PRN PRN PRN Reason: Dry Eyes Atorvastatin Calcium (Lipitor) 10 mg PO HS [facility] Last Admin: 10/01/17 21:09 Dose: 10 mg Budesonide (Pulmicort Neb Solution) 0.5 mg INH BID-RT [facility] Last Admin: 10/02/17 09:12 Dose: 0.5 mg Dextrose/Water (Dextrose 50%) 25 gm SLOW IVP PRN PRN PRN Reason: Hypoglycemia Enoxaparin Sodium (Lovenox) 40 mg SC 0900 [facility] Last Admin: 10/01/17 09:05 Dose: 40 mg Famotidine (Pepcid) 20 mg PO BID [facility] Last Admin: 10/01/17 21:09 Dose: 20 mg Glimepiride (Amaryl) 2 mg PO [facility] Last Admin: 10/01/17 09:09 Dose: Not Given Glucagon (Glucagon) 1 mg IM PRN PRN PRN Reason: Hypoglycemia Guaifenesin (Robitussin Sf) 200 mg PO Q4H PRN PRN Reason: Cough Hydralazine HCl (Apresoline) 10 mg SLOW IVP Q4H PRN PRN Reason: Systolic BP > 180 Dextrose/Water (D5w) 1,000 mls @ 0 mls/hr IV .Q0M PRN; As Directed PRN Reason: Hypoglycemia Cefepime HCl 2 gm/ Syringe 2.5 (ml/ Sodium Chloride) 12.5 mls @ 150 mls/hr SLOW IVP 0600,1800 [facility] Last Admin: 10/02/17 06:13 Dose: 12.5 mls Diltiazem HCl 125 mg/ Sodium (Chloride) 125 mls @ 5 mls/hr IVPB INF [facility] PRN Reason: 5 MG/HR Last Admin: 10/02/17 08:08 Dose: 125 mls Midazolam HCl (Versed) 100 mls @ 0 mls/hr IVPB INF PRN; Protocol; Titrate PRN Reason: Sedation Last Admin: 10/02/17 09:40 Dose: 100 mls Insulin Human Lispro (Humalog) 0 units SC .MODERATE SLIDING SC PRN PRN Reason: Moderate Correctional Scale Last Admin: 10/02/17 06:14 Dose: 4 unit Insulin Human Lispro (Humalog) 0 units SC .BEDTIME SLIDING SC PRN PRN Reason: Bedtime Correctional Scale Last Admin: 10/01/17 21:10 Dose: 3 unit Loperamide HCl (Imodium) 2 mg PO PRN PRN PRN Reason: Diarrhea/Loose Stools Loratadine (Claritin) 10 mg PO DAILYPRN PRN PRN Reason: Sinus Symptoms Lorazepam (Ativan) 1 mg SLOW IVP Q6H PRN PRN Reason: Anxiety Last Admin: 10/01/17 21:09 Dose: 1 mg Magnesium Hydroxide (Milk Of Magnesium) 30 ml PO DAILYPRN PRN PRN Reason: Constipation Metformin HCl (Glucophage) 500 mg PO 1000,2200 [facility] Last Admin: 10/01/17 21:09 Dose: 500 mg Methylprednisolone Sodium Succinate (Solu-Medrol) 20 mg IVP Q8HR [facility] Last Admin: 10/02/17 06:13 Dose: 20 mg Mineral Oil/White Petrolatum (Eucerin Cream) 0 gm TOP BIDPRN PRN PRN Reason: Dry Skin Ondansetron HCl (Zofran Odt) 4 mg PO Q6H PRN PRN Reason: Nausea/Vomiting Ondansetron HCl (Zofran) 4 mg IVP Q6H PRN PRN Reason: Nausea/Vomiting Phenol (Chloraseptic [place] 180 Ml Bot) 0 ml PO PRN PRN PRN Reason: Sore Throat Senna (Senokot) 2 tab PO HSPRN PRN PRN Reason: Constipation Sodium Chloride ([place] Nasal [place] 0.65%) 0 ml EA NARE QIDPRN PRN PRN Reason: Nasal Congestion Sodium Chloride (Flush - Normal Saline) 10 ml IVF Q12HR [facility] Sodium Chloride (Flush - Normal Saline) 10 ml IVF PRN PRN PRN Reason: Saline Flush Zolpidem Tartrate (Ambien) 5 mg PO HSPRN PRN PRN Reason: Insomnia Last Admin: 09/30/17 21:56 Dose: 5 mg
[2017-10-02 10:20] LABS: Base Excess (BEa) 2.7 mEq/L (0 (+/-) 2.5); CO2 Tension 45.8 mmHg (35.0-45.0)
[2017-10-02 10:21] LABS: Calcium, Ionized 1.2 mmol/L (1.12-1.30); Hematocrit-ABG 40.2 % (42.0-52.0); Hemoglobin (Hb) 12.7 g/dL (14.0-18.0); Puncture Site LBA
--- NOTE | 2017-10-02 12:04 | PQF ---
DATE: 10/02/17 ATTN: DR. DAVID TIDWELL Please exercise your independent, professional judgment in responding to the clarification form. Clinical indicators are provided on the bottom of this form for your review Please check appropriate box(s): [ ] Aspiration Pneumonia [ x ] Empirically treating Gram Negative Pneumonia [ ] Other diagnosis [ ] Unable to determine In addition, please specify: Present on Admission (POA): [ x ] Yes [ ] No [ ] Unable to determine For continuity of documentation, please document condition throughout progress notes and discharge summary. Thank You. CLINICAL INDICATORS - SIGNS / SYMPTOMS / LABS H&P: INCREASING SOB, SUSPECTED PNEUMONIA PN DR. TIDWELL 10-02-17: SUSPECTED PNEUMONIA WBC: 09-30-17: 14.9, 11.1, 15.1 (SEP) 09-30-17: MAXIPIME IV RISK FACTORS: H&P: NON SMALL CELL LUNG CANCER, COPD, HTN, DM 2, FORMER SMOKER, CHRONIC MALIGNANT PLEURAL EFFUSION TREATMENTS: (SEP) 09-30-17: MAXIPIME IV PULMONARY CONSULT (SEP) TAMI (This form is maintained as a part of the permanent medical record) 2014 [employer]. All Rights Reserved [email or web address] Office: [phone] [facility] HOSPITALNataly
[2017-10-02] MEDS: Famotidine 20 MG TAB PO SCH ×2 (12:54→21:17)
[2017-10-02] MEDS: Enoxaparin Sodium 40 MG/0.4 ML SYRINGE SC SCH (12:54)
[2017-10-02] MEDS: metFORMIN 500 MG TAB PO SCH (12:55)
[2017-10-02] MEDS: Glimepiride 2 MG TAB PO SCH (12:56)
[2017-10-02] MEDS: Sodium Chloride 0.45% 1,000 ML IV SCH ×2 (12:58→21:23)
--- NOTE | 2017-10-02 13:20 | OP ---
DATE OF PROCEDURE: 10/02/2017 SURGEON: Dr. Daniel Scott PROCEDURE: Fiberoptic intubation followed by fiberoptic bronchoscopy. The patient was given 1 mg of Versed. His throat was sprayed with Hurricaine [place] and a bite block was placed in his mouth. His had met with him prior to intubation. The bronchoscope was introduced into his posterior pharyngeal space and quickly passed through his vo keli cords without difficulties. Vocal cords appeared normal. A 7.5 endotracheal tube was secured ab ove the main jeff. He was then connected to Ambu bag ventilation and completely sedated with Verse d followed by Ativan. Once he was sedated, the bronchoscope was reintroduced via swivel adaptor and passed down to the main jeff. The right lower lobe, right middle lobe, right upper lobe and then left upper lobe bronchus was inspected. His lingula is actually in a position of the left lower lobe bronchus now. No endobronchial lesions were seen on either side. He tolerated the procedure well. He was connected to mechanical ventilation during the entire proced ure and tolerated this well.
--- NOTE | 2017-10-02 13:27 | PRG ---
DATE OF SERVICE: 10/02/2017 Mr. Lorenzana apparently early this morning developed rapid atrial fibrillation. I am told it was ar ound 4 in the morning, although vital signs do not reflect that. There is actually no 4:00 a.m. vit al signs recorded in the computer. Reviewing orders, a 5 mg dose of metoprolol and 10 mg dose of Cardizem was ordered at 4:15 and 6 a.m. , respectively. Initially this was put in as Dr. Fisher being the ordering physician. Now it is entered as ordering this. When I evaluated him around 7:30, he was tachypneic and complaining of not being able to go on much l onger. He has been moved to the Critical Care Unit since that time. I recommended intubation. I met with his when she came through the door this morning. PHYSICAL EXAMINATION: LUNGS: On exam, he still has crackles and rhonchi bilaterally. HEART: Regular rhythm with a rate of 140 when I examined him. ABDOMEN: Soft and nontender. EXTREMITIES: Without asymmetry. He had signs of muscle fatigue. Respiratory rate was in the high 20s to low 30s. LABORATORY: White count 15.1, hemoglobin 14.0, platelets 325. Sodium 132, potassium 5.4, chloride 97, bicarbonate 27, BUN 48, creatinine 1.28. IMPRESSION: 1. Recurrent non-small cell lung cancer. 2. History of colon cancer, resected. 3. History of a left lower lobectomy for lung cancer. 4. Pseudo progression of his lung cancer. 5. Status post placement of tunneled catheter with gradually decreasing drainage since his immunothe rapy has been started. 6. Mild prerenal azotemia. He was given IV fluids prior to intubation and sedation. His lab should improve overnight. I met with the and answered all her questions. I have also discussed all the above with oncolog y/Dr. De La Rosa. He has been started on a Cardizem drip and given more Cardizem intravenously. The pr oblem is that there is a shortage of Cardizem, so we will have to find an alternative drug. Amiodaro ne is less than ideal, but at least acutely is acceptable. We will continue with nebulized treatment s, steroids, and antimicrobial therapy. I do not feel that his radiographic abnormalities are secondary to an infectious process. I did a separate dictation on bronchoscopy, but he had no endobronchial disease. Critical care time 45 minutes independent of procedures.
[2017-10-02] MEDS ORDERED: Norepinephrine 8 MG/250 ML BAG IVPB PRN (20:56)
[2017-10-02] MEDS ORDERED: guaiFENesin ER 600 MG TAB PO SCH (21:00)
[2017-10-02] MEDS: Atorvastatin Calcium 10 MG TAB PO SCH (21:17)
[2017-10-03 05:12] LABS: Troponin I 0.018 ng/mL (< 0.028)
[2017-10-03] MEDS: HumaLOG 300 UNITS/3 ML VIAL SC PRN ×4 (05:16→21:04)
[2017-10-03] MEDS: Cefepime 2 GM, Syringe 2.5 ML in Sodium Chloride 0.9% 10 ML SLOW IVP SCH ×2 (05:16→17:45)
[2017-10-03 08:25] LABS: Actual Bicarbonate (HCO3a) 23.7 mEq/L (22-26); Base Excess (BEa) 1.5 mEq/L (0 (+/-) 2.5); CO2 Tension 29.3 mmHg (35.0-45.0); Calcium, Ionized 1.2 mmol/L (1.12-1.30); Hemoglobin (Hb) 10.3 g/dL (14.0-18.0); O2 Tension (PaO2) 76.5 mmHg (80.0-100.0); Puncture Site L.R.; pH, Arterial 7.53 (7.35-7.45)
[2017-10-03 08:26] LABS: ALV-art Gradient 243.375 (0-20)
--- NOTE | 2017-10-03 08:44 | PRG ---
DATE OF SERVICE: 10/03/2017 He is intubated and sedated on 4 mg of Versed. PHYSICAL EXAMINATION: VITAL SIGNS: Pulse 81, blood pressure 106/40, sats 98%, respirations 10. I's & O's have been 2356 in, 790 out. CHEST: Chest reveals decreased breath sounds, by rhonchi. CARDIAC: Normal S1, S2. ABDOMEN: Soft, no masses. 241. I see no lab or x-rays done. All have been ordered today. Neurologically sedated. IMPRESSION: 1. Respiratory failure. 2. Metastatic cancer. PLAN: I was told by the nurses that family decided they would want vent support. For the time being I am going to continue the vent. Lab and x-ray have been ordered. Nutrition will be started. He was started on Cardizem for his SVT. Await input from Oncology regarding prognosis, etc. treatmen t. We will discuss with family as they arrive. One-half hour critical care time.
[2017-10-03] MEDS ORDERED: Digoxin 0.5 MG/2 ML AMP SLOW IVP SCH (09:00)
[2017-10-03] MEDS: Sodium Chloride 0.9% 1,000 ML IV SCH ×2 (09:06→17:45)
[2017-10-03] MEDS: Enoxaparin Sodium 40 MG/0.4 ML SYRINGE SC SCH (09:23)
[2017-10-03] MEDS: Famotidine 20 MG TAB PER TUBE SCH ×2 (09:23→20:56)
--- NOTE | 2017-10-03 09:49 | PDOC.PN ---
- Subjective Encounter Start Date: 10/03/17 Encounter Start Time: 09:30 Patient seen and examined. pt is intubated and sedated, last night BP was low, so albumin was given, currently off cardizem drip, rate controlled, - Objective MAR Reviewed: Yes Vital Signs & Weight: Vital Signs (12 hours) Temp Pulse Resp BP Pulse Ox 10/03/17 08:00 97.6 F 84 23 H 106/60 10/03/17 07:58 83 16 99 10/03/17 06:00 16 10/03/17 04:00 98.3 F 16 10/03/17 02:15 89 90/55 L 10/03/17 02:00 16 10/03/17 00:00 98.9 F 16 10/02/17 22:19 84 88/51 L 10/02/17 22:00 16 Weight Weight 163 lb 12.855 oz Most Recent Monitor Data Heart Rate from ECG 94 NIBP 102/58 NIBP BP-Mean 84 Respiration from ECG 21 SpO2 99 I&O: 10/02/17 10/03/17 10/04/17 06:59 06:59 06:59 Intake Total 740 2356.6 Output Total 250 790 80 Balance 490 1566.6 -80 Result Diagrams: 10/02/17 05:39 10/02/17 05:39 Additional Labs: Accuchecks 10/03/17 10/02/17 10/02/17 05:10 21:27 17:00 POC Glucose 244 H 216 H 202 H 10/02/17 12:51 POC Glucose 165 H EKG Reviewed by me: Yes (afib) Phys Exam - Physical Examination Constitutional: NAD HEENT: PERRLA, sclera anicteric intubated Neck: no JVD, supple Respiratory: no wheezing, no rales, no rhonchi Cardiovascular: no significant murmur, irregular Gastrointestinal: soft, no distention, positive bowel sounds Musculoskeletal: pulses present, edema present Lymphatic: no nodes Skin: no rash, normal turgor Dx/Plan (1) Acute on chronic respiratory failure with hypoxia Code(s): J96.21 - ACUTE AND CHRONIC RESPIRATORY FAILURE WITH HYPOXIA Status: Acute (2) COPD exacerbation Code(s): J44.1 - CHRONIC OBSTRUCTIVE PULMONARY DISEASE W (ACUTE) EXACERBATION Status: Acute (3) Hyperkalemia Code(s): E87.5 - HYPERKALEMIA Status: Acute (4) Adenocarcinoma of lung, stage 4 Code(s): C34.90 - MALIGNANT NEOPLASM OF UNSP PART OF UNSP BRONCHUS OR LUNG Status: Chronic (5) CAD (coronary artery disease) Code(s): I25.10 - ATHSCL HEART DISEASE OF [place] CORONARY ARTERY W/O ANG PCTRS Status: Chronic Qualifiers: (6) Diabetes type 2, controlled Code(s): E11.9 - TYPE 2 DIABETES MELLITUS WITHOUT COMPLICATIONS Status: Chronic (7) H/O malignant neoplasm of colon Code(s): Z85.038 - PERSONAL HISTORY OF MALIGNANT NEOPLASM OF LARGE INTESTINE Status: Chronic Comment: s/p Colectomy 2016 (8) Hypertension Code(s): I10 - ESSENTIAL (PRIMARY) HYPERTENSION Status: Chronic Qualifiers: (9) Hypoalbuminemia Code(s): E88.09 - OTH DISORDERS OF PLASMA-PROTEIN METABOLISM, NEC Status: Chronic (10) Hyponatremia Code(s): E87.1 - HYPO-OSMOLALITY AND HYPONATREMIA Status: Chronic (11) Macrocytic anemia Code(s): D53.9 - NUTRITIONAL ANEMIA, UNSPECIFIED Status: Chronic (12) Malignant pleural effusion Code(s): J91.0 - MALIGNANT PLEURAL EFFUSION Status: Chronic (13) Paroxysmal atrial fibrillation Code(s): I48.0 - PAROXYSMAL ATRIAL FIBRILLATION Status: Chronic (14) Pneumonia Code(s): J18.9 - PNEUMONIA, UNSPECIFIED ORGANISM Status: Suspected - Plan cont current plan of care, continue antibiotics, respiratory therapy * continue cefepime * continue solumedrol * continue cardizem via tube * medication reviewed as below * symptomatic treatment * vent as per pulmonary * respiratory therapy. Review of Systems - Review of Systems Other: unable to review due to intubated status - Medications/Allergies Allergies/Adverse Reactions: Allergies Allergy/AdvReac Type Severity Reaction Status Date / Time Iodinated Contrast- Oral and Allergy Verified 08/30/17 23:36 IV Dye iodine Allergy Verified 08/30/17 23:36 Medications: Current Medications Acetaminophen (Tylenol) 650 mg PO Q4H PRN PRN Reason: Headache/Fever or Pain Al Hydroxide/Mg Hydroxide (Maalox) 30 ml PO Q6H PRN PRN Reason: Heartburn or Indigestion Albuterol/Ipratropium (Duoneb) 3 ml NEB [id number] [facility] Last Admin: 10/03/17 07:58 Dose: 3 ml Artificial Tears (Tears Naturale) 0 drop EA EYE PRN PRN PRN Reason: Dry Eyes Atorvastatin Calcium (Lipitor) 10 mg PO HS [facility] Last Admin: 10/02/17 21:17 Dose: 10 mg Dextrose/Water (Dextrose 50%) 25 gm SLOW IVP PRN PRN PRN Reason: Hypoglycemia Diltiazem HCl (Cardizem) 60 mg PER TUBE BID [facility] Last Admin: 10/03/17 09:23 Dose: 60 mg Enoxaparin Sodium (Lovenox) 40 mg SC 0900 [facility] Last Admin: 10/03/17 09:23 Dose: 40 mg Famotidine (Pepcid) 20 mg PER TUBE BID [facility] Last Admin: 10/03/17 09:23 Dose: 20 mg Glucagon (Glucagon) 1 mg IM PRN PRN PRN Reason: Hypoglycemia Guaifenesin (Robitussin Sf) 300 mg PER TUBE Q6HR [facility] Hydralazine HCl (Apresoline) 10 mg SLOW IVP Q4H PRN PRN Reason: Systolic BP > 180 Dextrose/Water (D5w) 1,000 mls @ 0 mls/hr IV .Q0M PRN; As Directed PRN Reason: Hypoglycemia Cefepime HCl 2 gm/ Syringe 2.5 (ml/ Sodium Chloride) 12.5 mls @ 150 mls/hr SLOW IVP 0600,1800 [facility] Last Admin: 10/03/17 05:16 Dose: 12.5 mls Midazolam HCl (Versed) 100 mls @ 0 mls/hr IVPB INF PRN; Protocol; Titrate PRN Reason: Sedation Last Admin: 10/02/17 09:40 Dose: 100 mls Norepinephrine Bitartrate (Levophed) 250 mls @ 0 mls/hr IVPB INF PRN; Protocol ; Titrate PRN Reason: Blood Pressure Sodium Chloride (Normal Saline 0.9%) 1,000 mls @ 100 mls/hr IV .Q10H [facility] Last Admin: 10/03/17 09:06 Dose: 1,000 mls Insulin Human Lispro (Humalog) 0 units SC .MODERATE SLIDING SC PRN PRN Reason: Moderate Correctional Scale Last Admin: 10/03/17 05:16 Dose: 4 unit Insulin Human Lispro (Humalog) 0 units SC .BEDTIME SLIDING SC PRN PRN Reason: Bedtime Correctional Scale Last Admin: 10/02/17 21:27 Dose: 2 unit Loperamide HCl (Imodium) 2 mg PO PRN PRN PRN Reason: Diarrhea/Loose Stools Magnesium Hydroxide (Milk Of Magnesium) 30 ml PO DAILYPRN PRN PRN Reason: Constipation Methylprednisolone Sodium Succinate (Solu-Medrol) 20 mg IVP Q8HR [facility] Last Admin: 10/03/17 05:16 Dose: 20 mg Mineral Oil/White Petrolatum (Eucerin Cream) 0 gm TOP BIDPRN PRN PRN Reason: Dry Skin Ondansetron HCl (Zofran Odt) 4 mg PO Q6H PRN PRN Reason: Nausea/Vomiting Ondansetron HCl (Zofran) 4 mg IVP Q6H PRN PRN Reason: Nausea/Vomiting Phenol (Chloraseptic [place] 180 Ml Bot) 0 ml PO PRN PRN PRN Reason: Sore Throat Senna (Senokot) 2 tab PO HSPRN PRN PRN Reason: Constipation Sodium Chloride ([place] Nasal [place] 0.65%) 0 ml EA NARE QIDPRN PRN PRN Reason: Nasal Congestion Sodium Chloride (Flush - Normal Saline) 10 ml IVF Q12HR [facility] Last Admin: 10/03/17 09:23 Dose: 10 ml Sodium Chloride (Flush - Normal Saline) 10 ml IVF PRN PRN PRN Reason: Saline Flush
[2017-10-03 10:26] LABS: #Lymphocytes 0.3 thou/uL (1.20-3.40); #Monocytes 0.5 thou/uL (0.11-0.59); %Basophils 0.4 % (0.0-1.0); %Eosinophils 0.3 % (0.0-10.0); %Lymphocytes 2.6 % (21.0-51.0); %Monocytes 4.6 % (0.0-10.0); %Neutrophils 92.1 % (42.0-75.0); Hemoglobin 11.2 g/dL (14.0-18.0); Mean Corpuscular HGB CONC 33.4 g/dL (32.0-36.0); Mean Corpuscular Hemoglobin 32.9 pg (27.0-31.0); Mean Corpuscular Volume 98.5 fl (80.0-94.0); Mean Platelet Volume 6.5 fL (7.4-10.4); Platelet Count 241 thou/uL (130-400); RBC Distribution Width 12.5 % (11.5-14.5); Red Blood Cell (RBC) Count 3.39 mill/uL (4.70-6.10); White Blood Cell (WBC) Count 9.7 thou/uL (4.8-10.8)
[2017-10-03 10:40] LABS: Anion Gap 12 mmol/L (10-20); BUN (Urea Nitrogen) 42 mg/dL (8.4-25.7); Calc. Creatinine Clearance 65 mL/min (70-130); Calcium 8.2 mg/dL (7.8-10.44); Carbon Dioxide 24 mmol/L (23-31); Chloride 100 mmol/L (98-107); Estimated GFR-MDRD 71; Glucose 233 mg/dL (83-110); Potassium 4.4 mmol/L (3.5-5.1); Sodium 132 mmol/L (136-145)
--- NOTE | 2017-10-03 11:42 | RAD ---
CHEST ONE VIEW: Comparison: 09-30-17 History: Lung cancer. Dyspnea. Ventilated patient. Respiratory distress. FINDINGS: Interval placement of a nasogastric and endotracheal tube. Endotracheal tube appears to terminate at the level of the clavicles. Nasogastric tube extends beyond the diaphragm, distal tip not seen. There appears to be a left sided chest tube. There are sternotomy wires. There is worsening opacification of the right lung base. Stable emphysematous changes. Stable cardiac silhouette. No pneumothorax. IMPRESSION: 1. Interval placement of endotracheal tube and nasogastric tube. 2. Stable left sided chest tube. 3. Worsening opacification of the right lung. POS: OFF
[2017-10-03] MEDS ORDERED: guaiFENesin 100 MG/5 ML UDCUP PER TUBE SCH (12:00)
[2017-10-03] MEDS ORDERED: Amiodarone HCl 150 MG, Admixture Fee 1 EACH in Dextrose 5% in Water 100 ML IVPB SCH (12:30)
[2017-10-03] MEDS: Diabetic Tussin 200 MG/10 ML UDCUP PER TUBE SCH ×2 (12:45→17:45)
[2017-10-03] MEDS: Amiodarone HCl 450 MG, Admixture Fee 1 EACH in Dextrose 5% in Water 250 ML IVPB SCH (13:14)
--- NOTE | 2017-10-03 13:31 | PRG ---
DATE OF SERVICE: 10/03/2017 Mr. Lorenzana continues to go in and out of very rapid atrial fibrillation despite oral Cardizem. He is intubated on the ventilator. Patient's review of systems obviously not obtainable, as he is on the ventilator, intubated. Chest x -ray shows worsening opacification of the right lung. PHYSICAL EXAMINATION LUNGS: Clear. CARDIAC: Normal S1, normal S2 now, but he had very rapid atrial fibrillation just a few minutes ago. ABDOMEN: Soft, nontender. EXTREMITIES: No edema. ASSESSMENT: 1. Atrial fibrillation, rapid despite diltiazem per the tube that was very ineffective in controllin g his rate. 2. Lung cancer. PLAN: Really the only reasonable chance of maintaining him in sinus rhythm is amiodarone. Hopefully , can avoid this long-term, but in the short term, this is his best option with the patient goes into rapid atrial fibrillation, he decompensates, probably had some contribution to him going on the vent ilator. ADDENDUM: My partners will be covering in the next few days. I will be out.
[2017-10-03] MEDS: Atorvastatin Calcium 10 MG TAB PO SCH (20:56)
[2017-10-04 04:59] LABS: #Basophils 0.1 thou/uL (0.0-0.2); #Eosinphils 0.1 thou/uL (0.0-0.7); #Lymphocytes 0.3 thou/uL (1.20-3.40); #Monocytes 0.5 thou/uL (0.11-0.59); #Neutrophils 9.4 thou/uL (1.40-6.50); %Basophils 0.6 % (0.0-1.0); %Eosinophils 0.5 % (0.0-10.0); %Lymphocytes 2.7 % (21.0-51.0); %Monocytes 4.6 % (0.0-10.0); %Neutrophils 91.6 % (42.0-75.0); Mean Corpuscular HGB CONC 33.7 g/dL (32.0-36.0); Mean Corpuscular Hemoglobin 33.5 pg (27.0-31.0); Mean Corpuscular Volume 99.3 fl (80.0-94.0); Mean Platelet Volume 6.7 fL (7.4-10.4); Platelet Count 226 thou/uL (130-400); RBC Distribution Width 12.6 % (11.5-14.5); Red Blood Cell (RBC) Count 3.29 mill/uL (4.70-6.10); White Blood Cell (WBC) Count 10.3 thou/uL (4.8-10.8)
[2017-10-04] MEDS: Diabetic Tussin 200 MG/10 ML UDCUP PER TUBE SCH ×5 (05:07→23:57)
[2017-10-04] MEDS: Sodium Chloride 0.9% 1,000 ML IV SCH ×3 (05:07→14:35)
[2017-10-04] MEDS: Cefepime 2 GM, Syringe 2.5 ML in Sodium Chloride 0.9% 10 ML SLOW IVP SCH ×2 (05:08→17:47)
[2017-10-04 05:18] LABS: Anion Gap 10 mmol/L (10-20); BUN (Urea Nitrogen) 39 mg/dL (8.4-25.7); Calc. Creatinine Clearance 74 mL/min (70-130); Calcium 8.1 mg/dL (7.8-10.44); Carbon Dioxide 24 mmol/L (23-31); Chloride 102 mmol/L (98-107); Estimated GFR-MDRD 79; Glucose 300 mg/dL (83-110); Potassium 4.3 mmol/L (3.5-5.1); Sodium 132 mmol/L (136-145)
[2017-10-04] MEDS: HumaLOG 300 UNITS/3 ML VIAL SC PRN ×4 (05:20→16:57)
[2017-10-04 07:22] LABS: CO2 Tension 45.3 mmHg (35.0-45.0); O2 Tension (PaO2) 72.4 mmHg (80.0-100.0); pH, Arterial 7.36 (7.35-7.45)
[2017-10-04 07:23] LABS: ALV-art Gradient 227.475 (0-20); Actual Bicarbonate (HCO3a) 25.1 mEq/L (22-26); Base Excess (BEa) -0.5 mEq/L (0 (+/-) 2.5); Calcium, Ionized 1.2 mmol/L (1.12-1.30); Hematocrit-ABG 35.1 % (42.0-52.0); Puncture Site LRA
--- NOTE | 2017-10-04 08:58 | PRG ---
DATE OF SERVICE: 10/04/2017 He is on the vent on 2.5 mg Versed and now obviously unresponsive, riding the vent. PHYSICAL EXAMINATION: VITAL SIGNS: Blood pressure 116/77, pulse 72, sats 90%, temperature is 97. CHEST: Chest revealed bilateral rhonchi. CARDIAC: Normal S1, S2, no gallops. ABDOMEN: Soft. LABORATORY AND X-RAY FINDINGS: X-ray shows right-sided infiltrate, left pleural effusion is better. White count 10,000, H&H 9 and 32, platelet count 226. His pO2 72, pCO2 40.36 on a rate of 10, 50%. Electrolytes are normal. Bronch washing gram negative seth. IMPRESSION: 1. Supraventricular tachycardia. 2. Respiratory failure. 3. Chronic obstructive pulmonary disease. 4. Probably gram negative pneumonia. 5. Metastatic cancer. PLAN: He is on Maxipime, steroids, scheduled neb treatments. Nutrition and PT. He is not weanable, though we will try and reduce his sedation, assess his neurolo gical status. I will follow. I will discuss with the family as they arrive. One-half hour critical care time.
[2017-10-04] MEDS: metFORMIN 500 MG TAB PER TUBE SCH ×2 (09:00→17:02)
--- NOTE | 2017-10-04 09:00 | RAD ---
CHEST ONE VIEW: History: 77-year-old male with history of follow up respiratory insufficiency. FINDINGS: Post underlying sternotomy. Endotracheal tube is in satisfactory position. The distal portion of the NG tube is very poorly demonstrated on this study. Although it does appear to extend into the region of the stomach. There is persistent confluent aveolar and nodular parenchymal changes in the right mi d lung zone and right lower lobe with some right pleural effusion. Stable appearing pleural and paren chymal opacity changes in the left chest. IMPRESSION: Stable alveolar confluent parenchymal changes in the right mid and lower lung zone with right pleural effusion and stable pleural and parenchymal changes in the left chest. Life support tubes in place. Continued short term follow up. POS: DUSTY
[2017-10-04] MEDS: Famotidine 20 MG TAB PER TUBE SCH ×2 (09:23→20:55)
[2017-10-04] MEDS: Pioglitazone HCl 15 MG TAB PER TUBE SCH (09:24)
[2017-10-04] MEDS: Enoxaparin Sodium 40 MG/0.4 ML SYRINGE SC SCH (09:24)
[2017-10-04] MEDS ORDERED: Lidocaine 2% w/Epinephrine 1:200K 20 ML VIAL FS SCH (09:45)
--- NOTE | 2017-10-04 09:45 | PDOC.PN ---
- Subjective Encounter Start Date: 10/04/17 Encounter Start Time: 09:00 Patient seen and examined. pt is intubated, sedated. No overnight events - Objective MAR Reviewed: Yes Vital Signs & Weight: Vital Signs (12 hours) Temp Pulse Resp BP Pulse Ox 10/04/17 08:00 97.8 F 22 H 10/04/17 06:45 72 116/67 10/04/17 06:43 73 24 H 93 L 10/04/17 06:00 23 H 10/04/17 04:00 97.6 F 20 10/04/17 02:16 85 107/66 10/04/17 02:00 31 H 10/04/17 00:00 97.8 F 19 10/03/17 22:17 79 101/69 10/03/17 22:00 20 Weight Admit Weight 160 lb Weight 169 lb 12.095 oz Most Recent Monitor Data Heart Rate from ECG 91 NIBP 114/60 NIBP BP-Mean 92 Respiration from ECG 24 SpO2 91 I&O: 10/03/17 10/04/17 10/05/17 06:59 06:59 06:59 Intake Total 2390.4 3524.6 45.4 Output Total 790 828 50 Balance 1600.4 2696.6 -4.6 Result Diagrams: 10/04/17 04:33 10/04/17 04:33 Additional Labs: Accuchecks 10/04/17 10/04/17 10/03/17 08:39 05:21 21:05 POC Glucose 284 H 316 H 248 H 10/03/17 10/03/17 16:14 10:14 POC Glucose 213 H 223 H Radiology Reviewed by me: Yes (chest xray) EKG Reviewed by me: Yes (nsr) Phys Exam - Physical Examination Constitutional: NAD intubated, sedated HEENT: PERRLA, sclera anicteric Neck: no JVD, supple Respiratory: no wheezing, no rales, no rhonchi Cardiovascular: RRR, no significant murmur, no rub Gastrointestinal: soft, no distention, positive bowel sounds Musculoskeletal: no edema, pulses present Lymphatic: no nodes Skin: no rash, normal turgor Dx/Plan (1) Acute on chronic respiratory failure with hypoxia Code(s): J96.21 - ACUTE AND CHRONIC RESPIRATORY FAILURE WITH HYPOXIA Status: Acute (2) COPD exacerbation Code(s): J44.1 - CHRONIC OBSTRUCTIVE PULMONARY DISEASE W (ACUTE) EXACERBATION Status: Acute (3) Hyperkalemia Code(s): E87.5 - HYPERKALEMIA Status: Acute (4) Adenocarcinoma of lung, stage 4 Code(s): C34.90 - MALIGNANT NEOPLASM OF UNSP PART OF UNSP BRONCHUS OR LUNG Status: Chronic (5) CAD (coronary artery disease) Code(s): I25.10 - ATHSCL HEART DISEASE OF [place] CORONARY ARTERY W/O ANG PCTRS Status: Chronic Qualifiers: (6) Diabetes type 2, controlled Code(s): E11.9 - TYPE 2 DIABETES MELLITUS WITHOUT COMPLICATIONS Status: Chronic (7) H/O malignant neoplasm of colon Code(s): Z85.038 - PERSONAL HISTORY OF MALIGNANT NEOPLASM OF LARGE INTESTINE Status: Chronic Comment: s/p Colectomy 2016 (8) Hypertension Code(s): I10 - ESSENTIAL (PRIMARY) HYPERTENSION Status: Chronic Qualifiers: (9) Hypoalbuminemia Code(s): E88.09 - OTH DISORDERS OF PLASMA-PROTEIN METABOLISM, NEC Status: Chronic (10) Hyponatremia Code(s): E87.1 - HYPO-OSMOLALITY AND HYPONATREMIA Status: Chronic (11) Macrocytic anemia Code(s): D53.9 - NUTRITIONAL ANEMIA, UNSPECIFIED Status: Chronic (12) Malignant pleural effusion Code(s): J91.0 - MALIGNANT PLEURAL EFFUSION Status: Chronic (13) Paroxysmal atrial fibrillation Code(s): I48.0 - PAROXYSMAL ATRIAL FIBRILLATION Status: Chronic (14) Pneumonia Code(s): J18.9 - PNEUMONIA, UNSPECIFIED ORGANISM Status: Suspected - Plan cont current plan of care, continue antibiotics, respiratory therapy * pt converted to nsr, continue amiodaron drip as per cardiology * continue cefepime empirically * blood sugar high due to tube feeding and steroid, will start his home meds metformin and actos via tube * medication reviewed as below * symptomatic treatment * change accucheck q 4 hourly. * vent management as per pulmonary Review of Systems - Review of Systems Other: unable to review due to intubated status - Medications/Allergies Allergies/Adverse Reactions: Allergies Allergy/AdvReac Type Severity Reaction Status Date / Time Iodinated Contrast- Oral and Allergy Verified 08/30/17 23:36 IV Dye iodine Allergy Verified 08/30/17 23:36 Medications: Current Medications Acetaminophen (Tylenol) 650 mg PO Q4H PRN PRN Reason: Headache/Fever or Pain Al Hydroxide/Mg Hydroxide (Maalox) 30 ml PO Q6H PRN PRN Reason: Heartburn or Indigestion Albuterol/Ipratropium (Duoneb) 3 ml NEB [id number] [facility] Last Admin: 10/04/17 06:43 Dose: 3 ml Artificial Tears (Tears Naturale) 0 drop EA EYE PRN PRN PRN Reason: Dry Eyes Atorvastatin Calcium (Lipitor) 10 mg PO HS [facility] Last Admin: 10/03/17 20:56 Dose: 10 mg Dextrose/Water (Dextrose 50%) 25 gm SLOW IVP PRN PRN PRN Reason: Hypoglycemia Enoxaparin Sodium (Lovenox) 40 mg SC 0900 [facility] Last Admin: 10/04/17 09:24 Dose: 40 mg Famotidine (Pepcid) 20 mg PER TUBE BID [facility] Last Admin: 10/04/17 09:23 Dose: 20 mg Glucagon (Glucagon) 1 mg IM PRN PRN PRN Reason: Hypoglycemia Guaifenesin (Robitussin Sf) 300 mg PER TUBE Q6HR [facility] Last Admin: 10/04/17 05:07 Dose: 300 mg Hydralazine HCl (Apresoline) 10 mg SLOW IVP Q4H PRN PRN Reason: Systolic BP > 180 Dextrose/Water (D5w) 1,000 mls @ 0 mls/hr IV .Q0M PRN; As Directed PRN Reason: Hypoglycemia Cefepime HCl 2 gm/ Syringe 2.5 (ml/ Sodium Chloride) 12.5 mls @ 150 mls/hr SLOW IVP 0600,1800 [facility] Last Admin: 10/04/17 05:08 Dose: 12.5 mls Midazolam HCl (Versed) 100 mls @ 0 mls/hr IVPB INF PRN; Protocol; Titrate PRN Reason: Sedation Last Admin: 10/03/17 13:38 Dose: 100 mls Norepinephrine Bitartrate (Levophed) 250 mls @ 0 mls/hr IVPB INF PRN; Protocol ; Titrate PRN Reason: Blood Pressure Amiodarone HCl 450 mg/Miscellaneous Medication 1 each/ Dextrose/Water 259 mls @ 0 mls/hr IVPB INF [facility]; As Directed PRN Reason: Protocol Last Admin: 10/03/17 13:14 Dose: 259 mls Sodium Chloride (Normal Saline 0.9%) 1,000 mls @ 50 mls/hr IV .Q20H [facility] Last Admin: 10/04/17 09:24 Dose: 1,000 mls Insulin Human Lispro (Humalog) 0 units SC .MODERATE SLIDING SC PRN PRN Reason: Moderate Correctional Scale Last Admin: 10/04/17 09:26 Dose: 4 unit Insulin Human Lispro (Humalog) 0 units SC .BEDTIME SLIDING SC PRN PRN Reason: Bedtime Correctional Scale Last Admin: 10/03/17 21:04 Dose: 2 unit Lidocaine/Epinephrine (Xylocaine 2% W/ Epi 1:200k) 0 ml FS .LOCAL X 1 [facility] Stop: 10/04/17 14:00 Loperamide HCl (Imodium) 2 mg PO PRN PRN PRN Reason: Diarrhea/Loose Stools Magnesium Hydroxide (Milk Of Magnesium) 30 ml PO DAILYPRN PRN PRN Reason: Constipation Metformin HCl (Glucophage) 500 mg PER TUBE BID-[facility] Last Admin: 10/04/17 09:00 Dose: 500 mg Methylprednisolone Sodium Succinate (Solu-Medrol) 20 mg IVP Q8HR [facility] Last Admin: 10/04/17 05:08 Dose: 20 mg Mineral Oil/White Petrolatum (Eucerin Cream) 0 gm TOP BIDPRN PRN PRN Reason: Dry Skin Ondansetron HCl (Zofran Odt) 4 mg PO Q6H PRN PRN Reason: Nausea/Vomiting Ondansetron HCl (Zofran) 4 mg IVP Q6H PRN PRN Reason: Nausea/Vomiting Phenol (Chloraseptic [place] 180 Ml Bot) 0 ml PO PRN PRN PRN Reason: Sore Throat Pioglitazone HCl (Actos) 30 mg PER TUBE QAM [facility] Last Admin: 10/04/17 09:24 Dose: 30 mg Senna (Senokot) 2 tab PO HSPRN PRN PRN Reason: Constipation Sodium Chloride ([place] Nasal [place] 0.65%) 0 ml EA NARE QIDPRN PRN PRN Reason: Nasal Congestion Sodium Chloride (Flush - Normal Saline) 10 ml IVF Q12HR [facility] Last Admin: 10/04/17 09:22 Dose: 10 ml Sodium Chloride (Flush - Normal Saline) 10 ml IVF PRN PRN PRN Reason: Saline Flush
[2017-10-04] MEDS ORDERED: DC Sedation Protocol FS ONE (11:50)
[2017-10-04] MEDS: Amiodarone HCl 450 MG, Admixture Fee 1 EACH in Dextrose 5% in Water 250 ML IVPB SCH (12:46)
--- NOTE | 2017-10-04 13:54 | PRG ---
DATE OF SERVICE: 10/04/2017 I was called to see the patient on an emergent basis after he apparently desaturated suddenly in the 60s, started having agonal respiration. BiPAP was started and it was clearly upon arrival, he was ureña ving difficulty breathing, not moving much air though he was responsive. He was told he was going to be intubated. He agreed. He has family members at the bedside who apparently has made a decision t o make him a DNR, but because of the acute onset of his dyspnea they have agreed to proceed with intu bation. He was given no sedation. A bite block was placed, an endotracheal tube was placed over the bronchos cope passed via the vocal cords above the jeff, good position. Both lungs were inspected quickly. There is no pus or endobronchial disease. He had previously undergone a bronchoscopy with Dr. Scott, growing Pseudomonas. Tube was secured, oxygen saturation improved to 97. He was bagged. VITAL SIGNS: Pulse was 130, blood pressure 130/80. LUNGS: Good breath sounds without any wheezing. The patient is now intubated on the vent. We are continuing nutrition and PT and other medication. I had a lengthy discussion with the patient's family. Post-intubation that we are going to keep him intubated for at least until the weekend to make sure he is improved. Thereafter, they have to make a decision for ongoing care versus comfort care. PHYSICAL EXAMINATION: VITAL SIGNS: Post-intubation sats are 97%, pulse 130, blood pressure 130/80. CHEST: Decreased breath sounds without any wheezing. CARDIAC: Sinus tachycardia. ABDOMEN: Soft, no masses. IMPRESSION: 1. Acute on chronic respiratory failure. 2. Metastatic lung cancer. 3. Left pleural effusion, status post removal of the pleural catheter today. PLAN: Continue antibiotics, neb treatments, steroids. I will follow. Please note this is one-half hour critical care time, exclusive of the intubation.
[2017-10-04] MEDS: fentaNYL Citrate/PF 2,000 MCG in Sodium Chloride 0.9% 60 ML IV SCH (14:11)
[2017-10-04] MEDS ORDERED: Sedation Protocol FS SCH (14:43)
[2017-10-04] MEDS ORDERED: DISCONTINUE PREVIOUS NARCOTIC PAIN MEDICATIONS AND BENZODIAZEPINES FS SCH (14:46)
[2017-10-04] MEDS ORDERED: Fentanyl BOLUS 250 ML IVPB PRN (14:46)
[2017-10-04 15:09] LABS: ALV-art Gradient 221.225 (0-20); Actual Bicarbonate (HCO3a) 23.9 mEq/L (22-26); Base Excess (BEa) -3.8 mEq/L (0 (+/-) 2.5); CO2 Tension 55.1 mmHg (35.0-45.0); Calcium, Ionized 1.3 mmol/L (1.12-1.30); Hematocrit-ABG 42.2 % (42.0-52.0); Hemoglobin (Hb) 12.7 g/dL (14.0-18.0); O2 Tension (PaO2) 66.4 mmHg (80.0-100.0); Puncture Site LRA; pH, Arterial 7.26 (7.35-7.45)
[2017-10-04] MEDS: Atorvastatin Calcium 10 MG TAB PO SCH (20:55)
[2017-10-05] MEDS: HumaLOG 300 UNITS/3 ML VIAL SC PRN ×3 (00:13→10:39)
[2017-10-05] MEDS: Amiodarone HCl 450 MG, Admixture Fee 1 EACH in Dextrose 5% in Water 250 ML IVPB SCH ×2 (03:55→20:01)
[2017-10-05 04:40] LABS: #Eosinphils 0.1 thou/uL (0.0-0.7); #Lymphocytes 0.3 thou/uL (1.20-3.40); #Monocytes 0.5 thou/uL (0.11-0.59); #Neutrophils 9.7 thou/uL (1.40-6.50); %Basophils 0.1 % (0.0-1.0); %Eosinophils 0.6 % (0.0-10.0); %Lymphocytes 2.5 % (21.0-51.0); %Monocytes 4.5 % (0.0-10.0); %Neutrophils 92.3 % (42.0-75.0); Hemoglobin 11.8 g/dL (14.0-18.0); Mean Corpuscular HGB CONC 33.6 g/dL (32.0-36.0); Mean Corpuscular Hemoglobin 33.5 pg (27.0-31.0); Mean Corpuscular Volume 99.9 fl (80.0-94.0); Platelet Count 243 thou/uL (130-400); RBC Distribution Width 12.7 % (11.5-14.5); Red Blood Cell (RBC) Count 3.51 mill/uL (4.70-6.10); White Blood Cell (WBC) Count 10.5 thou/uL (4.8-10.8)
[2017-10-05 04:53] LABS: Anion Gap 11 mmol/L (10-20); BUN (Urea Nitrogen) 46 mg/dL (8.4-25.7); Calc. Creatinine Clearance 75 mL/min (70-130); Calcium 8.3 mg/dL (7.8-10.44); Carbon Dioxide 24 mmol/L (23-31); Chloride 104 mmol/L (98-107); Estimated GFR-MDRD 81; Glucose 218 mg/dL (83-110); Potassium 4.8 mmol/L (3.5-5.1); Sodium 134 mmol/L (136-145)
[2017-10-05] MEDS: Cefepime 2 GM, Syringe 2.5 ML in Sodium Chloride 0.9% 10 ML SLOW IVP SCH ×2 (06:06→19:41)
[2017-10-05] MEDS: Diabetic Tussin 200 MG/10 ML UDCUP PER TUBE SCH ×3 (06:21→19:41)
[2017-10-05 07:31] LABS: Actual Bicarbonate (HCO3a) 23.7 mEq/L (22-26); O2 Tension (PaO2) 56.3 mmHg (80.0-100.0); pH, Arterial 7.33 (7.35-7.45)
[2017-10-05 07:32] LABS: Analyzer IN Cardio ER; Base Excess (BEa) -2.4 mEq/L (0 (+/-) 2.5); Calcium, Ionized 1.3 mmol/L (1.12-1.30); Hematocrit-ABG 41.1 % (42.0-52.0); Puncture Site LRA
[2017-10-05] MEDS: metFORMIN 500 MG TAB PER TUBE SCH ×2 (07:56→19:51)
[2017-10-05] MEDS: Lorazepam 2 MG/ML VIAL SLOW IVP PRN (08:06)
--- NOTE | 2017-10-05 08:12 | PRG ---
DATE OF SERVICE: 10/05/2017 He is intubated on the vent. X-ray shows diffuse infiltrates bilaterally. His left-sided small bore chest tube was removed yesterday. PHYSICAL EXAMINATION: VITAL SIGNS: Blood pressure is 100/80, sats 96%. He is at a PEEP of 10, 50%. His I's and O's are 3 524 in, 828 out. CHEST: Chest revealed decreased breath sounds, bilateral rhonchi or crackles. CARDIAC: Sinus tachycardia. ABDOMEN: Soft, no mass. NEUROLOGIC: He is awake and responsive. LABORATORY: White count 10,000, H&H 11 and 35, platelet count 243, pO2 56, pCO2 46.37, rate of 16, 5 0%, PEEP of 7. Electrolytes are normal. IMPRESSION: 1. Respiratory failure. 2. Metastatic cancer. 3. Superimposed possible gram negative pneumonia. 4. Supraventricular tachycardia. PLAN: He is not weanable. Continue nutrition, PT, and supportive care, pain relief. I will follow. One-half hour critical care time.
--- NOTE | 2017-10-05 08:41 | RAD ---
CHEST 1 VIEW: History Dyspnea. COMPARISON: 10/04/17. FINDINGS: Cardiac silhouette remains magnified, enlarged, and partially obscured by increasing airspace disease throughout the left lung and the right lower lobe. The patient is rotated leftward. Mediastinum is midline with postoperative changes. Lines and tubes appear unchanged in position. Pulmonary vascul ature is engorged. IMPRESSION: Worsening pulmonary edema and bilateral alveolar infiltrates. POS: [facility]
--- NOTE | 2017-10-05 08:58 | PDOC.PN ---
- Subjective Encounter Start Date: 10/05/17 Encounter Start Time: 07:10 -: old records requested/rev yesterday pt was extubated but he developed respi distress and required reintubation Patient seen and examined. No overnight events - Objective Resuscitation Status: Resuscitation Status FULL:Full Resuscitation MAR Reviewed: Yes Vital Signs & Weight: Vital Signs (12 hours) Temp Pulse Resp BP Pulse Ox 10/05/17 07:14 86 94/60 10/05/17 07:07 85 16 93 L 10/05/17 06:00 16 10/05/17 05:00 98.7 F 10/05/17 04:00 16 10/05/17 02:04 81 106/67 10/05/17 02:00 16 10/05/17 00:00 16 10/04/17 22:15 83 87/58 L 10/04/17 22:00 16 Weight Admit Weight 160 lb Weight 184 lb 1.376 oz Most Recent Monitor Data Heart Rate from ECG 95 NIBP 133/91 NIBP BP-Mean 118 Respiration from ECG 25 SpO2 96 I&O: 10/04/17 10/05/17 10/06/17 06:59 06:59 06:59 Intake Total 3524.6 2698.2 Output Total 828 1265 Balance 2696.6 1433.2 Result Diagrams: 10/05/17 03:40 10/05/17 03:40 Additional Labs: Accuchecks 10/05/17 10/05/17 10/04/17 03:51 00:12 20:56 POC Glucose 206 H 164 H 119 H 10/04/17 10/04/17 16:53 14:58 POC Glucose 224 H 298 H Radiology Reviewed by me: Yes (Chest xray) EKG Reviewed by me: Yes (NSR) Phys Exam - Physical Examination Constitutional: NAD intubated, awake on vent HEENT: PERRLA, sclera anicteric Neck: no JVD, supple reduced air entry both side Cardiovascular: RRR, no significant murmur, no rub Gastrointestinal: soft, non-tender, no distention, positive bowel sounds Musculoskeletal: no edema, pulses present Neurological: moves all 4 limbs Lymphatic: no nodes Skin: no rash, normal turgor Dx/Plan (1) Acute on chronic respiratory failure with hypoxia Code(s): J96.21 - ACUTE AND CHRONIC RESPIRATORY FAILURE WITH HYPOXIA Status: Acute (2) COPD exacerbation Code(s): J44.1 - CHRONIC OBSTRUCTIVE PULMONARY DISEASE W (ACUTE) EXACERBATION Status: Acute (3) Hyperkalemia Code(s): E87.5 - HYPERKALEMIA Status: Acute (4) Adenocarcinoma of lung, stage 4 Code(s): C34.90 - MALIGNANT NEOPLASM OF UNSP PART OF UNSP BRONCHUS OR LUNG Status: Chronic (5) CAD (coronary artery disease) Code(s): I25.10 - ATHSCL HEART DISEASE OF [place] CORONARY ARTERY W/O ANG PCTRS Status: Chronic Qualifiers: (6) Diabetes type 2, controlled Code(s): E11.9 - TYPE 2 DIABETES MELLITUS WITHOUT COMPLICATIONS Status: Chronic (7) H/O malignant neoplasm of colon Code(s): Z85.038 - PERSONAL HISTORY OF MALIGNANT NEOPLASM OF LARGE INTESTINE Status: Chronic Comment: s/p Colectomy 2016 (8) Hypertension Code(s): I10 - ESSENTIAL (PRIMARY) HYPERTENSION Status: Chronic Qualifiers: (9) Hypoalbuminemia Code(s): E88.09 - OTH DISORDERS OF PLASMA-PROTEIN METABOLISM, NEC Status: Chronic (10) Hyponatremia Code(s): E87.1 - HYPO-OSMOLALITY AND HYPONATREMIA Status: Chronic (11) Macrocytic anemia Code(s): D53.9 - NUTRITIONAL ANEMIA, UNSPECIFIED Status: Chronic (12) Malignant pleural effusion Code(s): J91.0 - MALIGNANT PLEURAL EFFUSION Status: Chronic (13) Paroxysmal atrial fibrillation Code(s): I48.0 - PAROXYSMAL ATRIAL FIBRILLATION Status: Chronic (14) Pneumonia Code(s): J18.9 - PNEUMONIA, UNSPECIFIED ORGANISM Status: Suspected - Plan cont current plan of care, continue antibiotics, respiratory therapy * continue vent as per pulmonary * pt is not weanable today * medication reviewed as below * symptomatic treatment * continue empiric cefepime. * continue amiodarone Review of Systems - Review of Systems Other: unable to review due to intubated status - Medications/Allergies Allergies/Adverse Reactions: Allergies Allergy/AdvReac Type Severity Reaction Status Date / Time Iodinated Contrast- Oral and Allergy Verified 08/30/17 23:36 IV Dye iodine Allergy Verified 08/30/17 23:36 Medications: Current Medications Acetaminophen (Tylenol) 650 mg PO Q4H PRN PRN Reason: Headache/Fever or Pain Al Hydroxide/Mg Hydroxide (Maalox) 30 ml PO Q6H PRN PRN Reason: Heartburn or Indigestion Albuterol/Ipratropium (Duoneb) 3 ml NEB [id number] [facility] Last Admin: 10/05/17 07:07 Dose: 3 ml Artificial Tears (Tears Naturale) 0 drop EA EYE PRN PRN PRN Reason: Dry Eyes Atorvastatin Calcium (Lipitor) 10 mg PO HS [facility] Last Admin: 10/04/17 20:55 Dose: 10 mg Dextrose/Water (Dextrose 50%) 25 gm SLOW IVP PRN PRN PRN Reason: Hypoglycemia Enoxaparin Sodium (Lovenox) 40 mg SC 0900 [facility] Last Admin: 10/04/17 09:24 Dose: 40 mg Famotidine (Pepcid) 20 mg PER TUBE BID [facility] Last Admin: 10/04/17 20:55 Dose: 20 mg Glucagon (Glucagon) 1 mg IM PRN PRN PRN Reason: Hypoglycemia Guaifenesin (Robitussin Sf) 300 mg PER TUBE Q6HR [facility] Last Admin: 10/05/17 06:21 Dose: 300 mg Hydralazine HCl (Apresoline) 10 mg SLOW IVP Q4H PRN PRN Reason: Systolic BP > 180 Dextrose/Water (D5w) 1,000 mls @ 0 mls/hr IV .Q0M PRN; As Directed PRN Reason: Hypoglycemia Cefepime HCl 2 gm/ Syringe 2.5 (ml/ Sodium Chloride) 12.5 mls @ 150 mls/hr SLOW IVP 0600,1800 [facility] Last Admin: 10/05/17 06:06 Dose: 12.5 mls Norepinephrine Bitartrate (Levophed) 250 mls @ 0 mls/hr IVPB INF PRN; Protocol ; Titrate PRN Reason: Blood Pressure Amiodarone HCl 450 mg/Miscellaneous Medication 1 each/ Dextrose/Water 259 mls @ 0 mls/hr IVPB INF [facility]; As Directed PRN Reason: Protocol Last Admin: 10/05/17 03:55 Dose: 259 mls Sodium Chloride (Normal Saline 0.9%) 1,000 mls @ 50 mls/hr IV .Q20H [facility] Last Admin: 10/04/17 14:35 Dose: 1,000 mls Fentanyl Citrate 2,000 mcg/ (Sodium Chloride) 100 mls @ 0 mls/hr IV INF [place] PRN Reason: As Directed Last Admin: 10/04/17 14:11 Dose: 100 mls Fentanyl Citrate (Fentanyl Bolus) 250 mls @ 0 mls/hr IVPB PRN PRN; As Directed PRN Reason: Breakthrough pain Stop: 11/03/17 14:46 Insulin Human Lispro (Humalog) 0 units SC .MODERATE SLIDING SC PRN PRN Reason: Moderate Correctional Scale Last Admin: 10/05/17 03:53 Dose: 4 unit Insulin Human Lispro (Humalog) 0 units SC .BEDTIME SLIDING SC PRN PRN Reason: Bedtime Correctional Scale Last Admin: 10/03/17 21:04 Dose: 2 unit Loperamide HCl (Imodium) 2 mg PO PRN PRN PRN Reason: Diarrhea/Loose Stools Lorazepam (Ativan) 2 mg SLOW IVP Q2H PRN PRN Reason: Anxiety to achieve Soliz 2-3 Stop: 11/03/17 14:46 Last Admin: 10/05/17 08:06 Dose: 2 mg Magnesium Hydroxide (Milk Of Magnesium) 30 ml PO DAILYPRN PRN PRN Reason: Constipation Metformin HCl (Glucophage) 500 mg PER TUBE BID-[facility] Last Admin: 10/05/17 07:56 Dose: 500 mg Methylprednisolone Sodium Succinate (Solu-Medrol) 40 mg IVP BID [facility] Last Admin: 10/05/17 08:07 Dose: 40 mg Mineral Oil/White Petrolatum (Eucerin Cream) 0 gm TOP BIDPRN PRN PRN Reason: Dry Skin Morphine Sulfate (Morphine) 2 mg SLOW IVP Q2H PRN PRN Reason: BREAKTHROUGH PAIN Stop: 11/03/17 15:00 Ondansetron HCl (Zofran Odt) 4 mg PO Q6H PRN PRN Reason: Nausea/Vomiting Ondansetron HCl (Zofran) 4 mg IVP Q6H PRN PRN Reason: Nausea/Vomiting Phenol (Chloraseptic [place] 180 Ml Bot) 0 ml PO PRN PRN PRN Reason: Sore Throat Pioglitazone [facility] (Actos) [facility] [place] Last Admin: 10/04/17 09:24 Dose: 30 mg Propofol (Diprivan) 1,000 mg IV INF PRN; Protocol PRN Reason: TO ACHIEVE SOLIZ SCORE 2-3 Stop: 11/03/17 14:46 Senna (Senokot) 2 tab PO HSPRN PRN PRN Reason: Constipation Sodium Chloride ([place] Nasal [place] 0.65%) 0 ml EA NARE QIDPRN PRN PRN Reason: Nasal Congestion Sodium Chloride (Flush - Normal Saline) 10 ml IVF Q12HR [facility] Last Admin: 10/05/17 08:07 Dose: 10 ml Sodium Chloride (Flush - Normal Saline) 10 ml IVF PRN PRN PRN Reason: Saline Flush Last Admin: 10/05/17 08:07 Dose: 10 ml
[2017-10-05] MEDS: Pioglitazone HCl 15 MG TAB PER TUBE SCH (09:31)
[2017-10-05] MEDS: Enoxaparin Sodium 40 MG/0.4 ML SYRINGE SC SCH (09:31)
[2017-10-05] MEDS: Famotidine 20 MG TAB PER TUBE SCH ×2 (09:31→20:20)
[2017-10-05] MEDS: fentaNYL Citrate/PF 2,000 MCG in Sodium Chloride 0.9% 60 ML IV SCH (12:43)
[2017-10-05] MEDS: Atorvastatin Calcium 10 MG TAB PO SCH (20:20)
[2017-10-06] MEDS: Diabetic Tussin 200 MG/10 ML UDCUP PER TUBE SCH ×5 (00:15→23:06)
[2017-10-06 04:41] LABS: #Eosinphils 0.1 thou/uL (0.0-0.7); #Lymphocytes 0.4 thou/uL (1.20-3.40); #Monocytes 0.6 thou/uL (0.11-0.59); %Basophils 0.2 % (0.0-1.0); %Eosinophils 0.8 % (0.0-10.0); %Lymphocytes 3.4 % (21.0-51.0); %Monocytes 5.4 % (0.0-10.0); %Neutrophils 90.2 % (42.0-75.0); Hemoglobin 11.8 g/dL (14.0-18.0); Mean Corpuscular HGB CONC 33.3 g/dL (32.0-36.0); Mean Corpuscular Hemoglobin 33.3 pg (27.0-31.0); Mean Corpuscular Volume 99.8 fl (80.0-94.0); Mean Platelet Volume 7.1 fL (7.4-10.4); Platelet Count 233 thou/uL (130-400); RBC Distribution Width 12.8 % (11.5-14.5); Red Blood Cell (RBC) Count 3.55 mill/uL (4.70-6.10); White Blood Cell (WBC) Count 11.1 thou/uL (4.8-10.8)
[2017-10-06] MEDS: HumaLOG 300 UNITS/3 ML VIAL SC PRN ×3 (05:07→16:13)
[2017-10-06] MEDS: Sodium Chloride 0.9% 1,000 ML IV SCH ×3 (05:08→21:09)
[2017-10-06] MEDS: Cefepime 2 GM, Syringe 2.5 ML in Sodium Chloride 0.9% 10 ML SLOW IVP SCH ×2 (05:09→17:22)
[2017-10-06 05:37] LABS: Anion Gap 10 mmol/L (10-20); BUN (Urea Nitrogen) 51 mg/dL (8.4-25.7); Calc. Creatinine Clearance 76 mL/min (70-130); Calcium 8.2 mg/dL (7.8-10.44); Carbon Dioxide 24 mmol/L (23-31); Chloride 104 mmol/L (98-107); Estimated GFR-MDRD 74; Glucose 243 mg/dL (83-110); Sodium 133 mmol/L (136-145)
[2017-10-06 07:04] LABS: Actual Bicarbonate (HCO3a) 22.7 mEq/L (22-26); Base Excess (BEa) -3.7 mEq/L (0 (+/-) 2.5); CO2 Tension 46.8 mmHg (35.0-45.0); Hematocrit-ABG 40.3 % (42.0-52.0); Hemoglobin (Hb) 12.3 g/dL (14.0-18.0); O2 Tension (PaO2) 64.7 mmHg (80.0-100.0)
[2017-10-06 07:05] LABS: Calcium, Ionized 1.3 mmol/L (1.12-1.30); Puncture Site RR
[2017-10-06] MEDS: fentaNYL Citrate/PF 2,000 MCG in Sodium Chloride 0.9% 60 ML IV SCH (07:25)
[2017-10-06] MEDS: Enoxaparin Sodium 40 MG/0.4 ML SYRINGE SC SCH (08:36)
[2017-10-06] MEDS: Pioglitazone HCl 15 MG TAB PER TUBE SCH (08:36)
[2017-10-06] MEDS: metFORMIN 500 MG TAB PER TUBE SCH ×2 (08:36→17:07)
[2017-10-06] MEDS: Famotidine 20 MG TAB PER TUBE SCH ×2 (08:36→20:25)
--- NOTE | 2017-10-06 08:44 | PRG ---
DATE OF SERVICE: 10/06/2017 This morning he is awake, alert, responsive, on the vent. PHYSICAL EXAMINATION: VITAL SIGNS: Blood pressure is 100/80, sats 95%, pulse 80, respiration rate 18. His I's and O's are 2698 in, 1264 out. CHEST: Extensive crackles, rhonchi. CARDIAC: Normal S1, S2. ABDOMEN: Soft, no masses. LABORATORY: White count 11,000, H&H 11 and 34, platelet count 233, pO2 64, pCO2 47.37 on a rate of 1 6, 50%, PEEP of 10. Sodium 133, BUN 51, creatinine is 0.98. IMPRESSION: 1. Respiratory failure. 2. Chronic obstructive pulmonary disease. 3. Pneumonia. 4. Lung cancer. 5. Supraventricular tachycardia. PLAN: He at this stage is not weanable. Continue steroids, neb treatments, antibiotics. Continue slow hydration. Nutrition and PT. I will discuss with family. One-half hour critical care time.
--- NOTE | 2017-10-06 08:57 | RAD ---
CHEST 1 VIEW: Date: 10/06/17 HISTORY: Dyspnea. Follow-up. COMPARISON: 10/05/17. FINDINGS: Cardiac silhouette remains magnified, enlarged, and partially obscured by dense bilateral air space d isease. Mediastinum is midline. Lines and tubes appear unchanged in position. There are postoperative changes in the mediastinum. No evidence of pneumothorax. IMPRESSION: Pulmonary edema and other findings are stable. POS: [facility]
[2017-10-06] MEDS: Amiodarone HCl 450 MG, Admixture Fee 1 EACH in Dextrose 5% in Water 250 ML IVPB SCH (10:23)
--- NOTE | 2017-10-06 11:54 | PDOC.PN ---
- Subjective Encounter Start Date: 10/06/17 Encounter Start Time: 08:30 Patient seen and examined. pt is intubated, sedated No overnight events - Objective Resuscitation Status: Resuscitation Status FULL:Full Resuscitation MAR Reviewed: Yes Vital Signs & Weight: Vital Signs (12 hours) Temp Pulse Resp BP Pulse Ox 10/06/17 11:19 87 115/67 10/06/17 08:00 98.3 F 91 22 H 100 10/06/17 07:21 91 10/06/17 05:57 16 10/06/17 04:00 98.5 F 16 10/06/17 02:43 78 10/06/17 02:42 78 18 98 10/06/17 02:00 16 10/06/17 00:00 98.4 F 16 Weight Admit Weight 160 lb Weight 188 lb 7.924 oz Most Recent Monitor Data Heart Rate from ECG 79 NIBP 100/61 NIBP BP-Mean 65 Respiration from ECG 16 SpO2 99 I&O: 10/05/17 10/06/17 10/07/17 06:59 06:59 06:59 Intake Total 2698.2 1970.3 Output Total 1265 875 155 Balance 1433.2 1095.3 -155 Result Diagrams: 10/06/17 04:28 10/06/17 04:28 Additional Labs: Accuchecks 10/06/17 10/06/17 10/05/17 10:22 04:29 20:55 POC Glucose 185 H 222 H 138 H 10/05/17 10/05/17 16:19 12:24 POC Glucose 175 H 264 H Radiology Reviewed by me: Yes (chest xray) EKG Reviewed by me: Yes (nsr) Phys Exam - Physical Examination Constitutional: NAD intubated, sedated HEENT: PERRLA, sclera anicteric Neck: no JVD, supple Respiratory: no wheezing, no rales, no rhonchi Cardiovascular: RRR, no significant murmur, no rub Gastrointestinal: soft, no distention, positive bowel sounds Musculoskeletal: no edema, pulses present Lymphatic: no nodes Skin: no rash, normal turgor Dx/Plan (1) Acute on chronic respiratory failure with hypoxia Code(s): J96.21 - ACUTE AND CHRONIC RESPIRATORY FAILURE WITH HYPOXIA Status: Acute (2) COPD exacerbation Code(s): J44.1 - CHRONIC OBSTRUCTIVE PULMONARY DISEASE W (ACUTE) EXACERBATION Status: Acute (3) Hyperkalemia Code(s): E87.5 - HYPERKALEMIA Status: Acute (4) Adenocarcinoma of lung, stage 4 Code(s): C34.90 - MALIGNANT NEOPLASM OF UNSP PART OF UNSP BRONCHUS OR LUNG Status: Chronic (5) CAD (coronary artery disease) Code(s): I25.10 - ATHSCL HEART DISEASE OF [place] CORONARY ARTERY W/O ANG PCTRS Status: Chronic Qualifiers: (6) Diabetes type 2, controlled Code(s): E11.9 - TYPE 2 DIABETES MELLITUS WITHOUT COMPLICATIONS Status: Chronic (7) H/O malignant neoplasm of colon Code(s): Z85.038 - PERSONAL HISTORY OF MALIGNANT NEOPLASM OF LARGE INTESTINE Status: Chronic Comment: s/p Colectomy 2016 (8) Hypertension Code(s): I10 - ESSENTIAL (PRIMARY) HYPERTENSION Status: Chronic Qualifiers: (9) Hypoalbuminemia Code(s): E88.09 - OTH DISORDERS OF PLASMA-PROTEIN METABOLISM, NEC Status: Chronic (10) Hyponatremia Code(s): E87.1 - HYPO-OSMOLALITY AND HYPONATREMIA Status: Chronic (11) Macrocytic anemia Code(s): D53.9 - NUTRITIONAL ANEMIA, UNSPECIFIED Status: Chronic (12) Malignant pleural effusion Code(s): J91.0 - MALIGNANT PLEURAL EFFUSION Status: Chronic (13) Paroxysmal atrial fibrillation Code(s): I48.0 - PAROXYSMAL ATRIAL FIBRILLATION Status: Chronic (14) Pneumonia Code(s): J18.9 - PNEUMONIA, UNSPECIFIED ORGANISM Status: Suspected - Plan cont current plan of care, continue antibiotics, respiratory therapy * pt is not weanable yet * continue vent as per pulmonary * medication reviewed as below * symptomatic treatment. * continue cefepime * continue amiodarone * continue solumedrol Review of Systems - Review of Systems Other: unable to review due to intubated status - Medications/Allergies Allergies/Adverse Reactions: Allergies Allergy/AdvReac Type Severity Reaction Status Date / Time Iodinated Contrast- Oral and Allergy Verified 08/30/17 23:36 IV Dye iodine Allergy Verified 08/30/17 23:36 Medications: Current Medications Acetaminophen (Tylenol) 650 mg PO Q4H PRN PRN Reason: Headache/Fever or Pain Al Hydroxide/Mg Hydroxide (Maalox) 30 ml PO Q6H PRN PRN Reason: Heartburn or Indigestion Albuterol/Ipratropium (Duoneb) 3 ml NEB [id number] [facility] Last Admin: 10/06/17 11:17 Dose: 3 ml Artificial Tears (Tears Naturale) 0 drop EA EYE PRN PRN PRN Reason: Dry Eyes Atorvastatin Calcium (Lipitor) 10 mg PO HS [facility] Last Admin: 10/05/17 20:20 Dose: 10 mg Dextrose/Water (Dextrose 50%) 25 gm SLOW IVP PRN PRN PRN Reason: Hypoglycemia Enoxaparin Sodium (Lovenox) 40 mg SC 0900 [facility] Last Admin: 10/06/17 08:36 Dose: 40 mg Famotidine (Pepcid) 20 mg PER TUBE BID [facility] Last Admin: 10/06/17 08:36 Dose: 20 mg Glucagon (Glucagon) 1 mg IM PRN PRN PRN Reason: Hypoglycemia Guaifenesin (Robitussin Sf) 300 mg PER TUBE Q6HR [facility] Last Admin: 10/06/17 05:09 Dose: 300 mg Hydralazine HCl (Apresoline) 10 mg SLOW IVP Q4H PRN PRN Reason: Systolic BP > 180 Dextrose/Water (D5w) 1,000 mls @ 0 mls/hr IV .Q0M PRN; As Directed PRN Reason: Hypoglycemia Cefepime HCl 2 gm/ Syringe 2.5 (ml/ Sodium Chloride) 12.5 mls @ 150 mls/hr SLOW IVP 0600,1800 [facility] Last Admin: 10/06/17 05:09 Dose: 12.5 mls Norepinephrine Bitartrate (Levophed) 250 mls @ 0 mls/hr IVPB INF PRN; Protocol ; Titrate PRN Reason: Blood Pressure Amiodarone HCl 450 mg/Miscellaneous Medication 1 each/ Dextrose/Water 259 mls @ 0 mls/hr IVPB INF [facility]; As Directed PRN Reason: Protocol Last Admin: 10/06/17 10:23 Dose: 259 mls Fentanyl Citrate 2,000 mcg/ (Sodium Chloride) 100 mls @ 0 mls/hr IV INF [facility] PRN Reason: As Directed Last Admin: 10/06/17 07:25 Dose: 100 mls Fentanyl Citrate (Fentanyl Bolus) 250 mls @ 0 mls/hr IVPB PRN PRN; As Directed PRN Reason: Breakthrough pain Stop: 11/03/17 14:46 Sodium Chloride (Normal Saline 0.9%) 1,000 mls @ 75 mls/hr IV .[id number] [facility] Last Admin: 10/06/17 08:37 Dose: Not Given Insulin Human Lispro (Humalog) 0 units SC .MODERATE SLIDING SC PRN PRN Reason: Moderate Correctional Scale Last Admin: 10/06/17 10:24 Dose: 2 unit Insulin Human Lispro (Humalog) 0 units SC .BEDTIME SLIDING SC PRN PRN Reason: Bedtime Correctional Scale Last Admin: 10/03/17 21:04 Dose: 2 unit Loperamide HCl (Imodium) 2 mg PO PRN PRN PRN Reason: Diarrhea/Loose Stools Lorazepam (Ativan) 2 mg SLOW IVP Q2H PRN PRN Reason: Anxiety to achieve Soliz 2-3 Stop: 11/03/17 14:46 Last Admin: 10/05/17 08:06 Dose: 2 mg Magnesium Hydroxide (Milk Of Magnesium) 30 ml PO DAILYPRN PRN PRN Reason: Constipation Metformin HCl (Glucophage) 500 mg PER TUBE BID-[facility] Last Admin: 10/06/17 08:36 Dose: 500 mg Methylprednisolone Sodium Succinate (Solu-Medrol) 40 mg IVP BID [facility] Last Admin: 10/06/17 08:36 Dose: 40 mg Mineral Oil/White Petrolatum (Eucerin Cream) 0 gm TOP BIDPRN PRN PRN Reason: Dry Skin Morphine Sulfate (Morphine) 2 mg SLOW IVP Q2H PRN PRN Reason: BREAKTHROUGH PAIN Stop: 11/03/17 15:00 Ondansetron HCl (Zofran Odt) 4 mg PO Q6H PRN PRN Reason: Nausea/Vomiting Ondansetron HCl (Zofran) 4 mg IVP Q6H PRN PRN Reason: Nausea/Vomiting Phenol (Chloraseptic [place] 180 Ml Bot) 0 ml PO PRN PRN PRN Reason: Sore Throat Pioglitazone HCl (Actos) 30 mg PER TUBE QAM [facility] Last Admin: 10/06/17 08:36 Dose: 30 mg Propofol (Diprivan) 1,000 mg IV INF PRN; Protocol PRN Reason: TO ACHIEVE SOLIZ SCORE 2-3 Stop: 11/03/17 14:46 Senna (Senokot) 2 tab PO HSPRN PRN PRN Reason: Constipation Sodium Chloride ([place] Nasal [place] 0.65%) 0 ml EA NARE QIDPRN PRN PRN Reason: Nasal Congestion Sodium Chloride (Flush - Normal Saline) 10 ml IVF Q12HR [facility] Last Admin: 10/06/17 08:39 Dose: 10 ml Sodium Chloride (Flush - Normal Saline) 10 ml IVF PRN PRN PRN Reason: Saline Flush Last Admin: 10/05/17 08:07 Dose: 10 ml
[2017-10-06] MEDS: Atorvastatin Calcium 10 MG TAB PO SCH (20:25)
[2017-10-07] MEDS: fentaNYL Citrate/PF 2,000 MCG in Sodium Chloride 0.9% 60 ML IV SCH (01:15)
[2017-10-07] MEDS: Amiodarone HCl 450 MG, Admixture Fee 1 EACH in Dextrose 5% in Water 250 ML IVPB SCH ×2 (01:15→19:42)
[2017-10-07 04:36] LABS: #Eosinphils 0.1 thou/uL (0.0-0.7); #Lymphocytes 0.4 thou/uL (1.20-3.40); #Monocytes 0.6 thou/uL (0.11-0.59); #Neutrophils 12.1 thou/uL (1.40-6.50); %Eosinophils 0.6 % (0.0-10.0); %Lymphocytes 2.9 % (21.0-51.0); %Monocytes 4.5 % (0.0-10.0); %Neutrophils 91.9 % (42.0-75.0); Hemoglobin 11.9 g/dL (14.0-18.0); Mean Corpuscular HGB CONC 33.2 g/dL (32.0-36.0); Mean Corpuscular Hemoglobin 33.1 pg (27.0-31.0); Mean Corpuscular Volume 99.9 fl (80.0-94.0); Platelet Count 238 thou/uL (130-400); RBC Distribution Width 12.8 % (11.5-14.5); White Blood Cell (WBC) Count 13.2 thou/uL (4.8-10.8)
[2017-10-07 04:55] LABS: Anion Gap 11 mmol/L (10-20); BUN (Urea Nitrogen) 49 mg/dL (8.4-25.7); Calc. Creatinine Clearance 72 mL/min (70-130); Calcium 8.2 mg/dL (7.8-10.44); Carbon Dioxide 22 mmol/L (23-31); Chloride 105 mmol/L (98-107); Estimated GFR-MDRD 68; Glucose 280 mg/dL (83-110); Potassium 5.1 mmol/L (3.5-5.1); Sodium 133 mmol/L (136-145)
[2017-10-07] MEDS: HumaLOG 300 UNITS/3 ML VIAL SC PRN ×5 (04:58→19:44)
[2017-10-07] MEDS: Cefepime 2 GM, Syringe 2.5 ML in Sodium Chloride 0.9% 10 ML SLOW IVP SCH ×2 (05:05→17:05)
[2017-10-07] MEDS: Diabetic Tussin 200 MG/10 ML UDCUP PER TUBE SCH ×3 (05:06→17:06)
[2017-10-07] MEDS: Lorazepam 2 MG/ML VIAL SLOW IVP PRN ×2 (07:04→19:42)
[2017-10-07 07:32] LABS: Actual Bicarbonate (HCO3a) 20.7 mEq/L (22-26); Base Excess (BEa) -5.1 mEq/L (0 (+/-) 2.5); CO2 Tension 41.3 mmHg (35.0-45.0); Calcium, Ionized 1.3 mmol/L (1.12-1.30); Hematocrit-ABG 38.8 % (42.0-52.0); Hemoglobin (Hb) 11.9 g/dL (14.0-18.0); O2 Tension (PaO2) 70.6 mmHg (80.0-100.0); Puncture Site RR; pH, Arterial 7.32 (7.35-7.45)
[2017-10-07 07:33] LABS: ALV-art Gradient 231.775 (0-20)
[2017-10-07] MEDS: Sodium Chloride 0.9% 1,000 ML IV SCH (08:47)
[2017-10-07] MEDS: Famotidine 20 MG TAB PER TUBE SCH ×2 (08:48→19:42)
[2017-10-07] MEDS: Pioglitazone HCl 15 MG TAB PER TUBE SCH (08:48)
[2017-10-07] MEDS: Enoxaparin Sodium 40 MG/0.4 ML SYRINGE SC SCH (08:48)
[2017-10-07] MEDS: metFORMIN 500 MG TAB PER TUBE SCH ×2 (08:48→17:05)
--- NOTE | 2017-10-07 16:50 | PRG ---
DATE OF SERVICE: 10/07/2017 SUBJECTIVE: Intubated on vent, and he is awake on low dose fentanyl. I's & O's have been good. OBJECTIVE: VITAL SIGNS: His blood pressure 170/80, pulse 78, respirations 18, 1970 in and 875 out. CHEST: Without crackles. CARDIAC: Normal S1 and S2, no gallops. ABDOMEN: Soft. No masses. LABORATORY DATA: White count 13,000, hemoglobin and hematocrit 11 and 36, platelet normal. His elec trolytes are normal. His creatinine is normal. BUN is 49. Sodium 133, pO2 is 70, pCO2 of 40, pH 7. 32, rate of 16. IMPRESSION: Respiratory failure, viral bronchopneumonia metastatic cancer, hyponatremia, supra ventricular tachycardia. PLAN: Vent is being adjusted. Continue Maxipime and steroids. He is not weanable. We will follow. One-half hour critical care time.
[2017-10-07] MEDS: Atorvastatin Calcium 10 MG TAB PO SCH (19:42)
[2017-10-07] MEDS: Metoclopramide HCl 10 MG/2 ML VIAL IVP SCH (19:42)
--- NOTE | 2017-10-07 20:06 | PDOC.PN ---
- Subjective Encounter Start Date: 10/07/17 Encounter Start Time: 11:30 Patient seen and examined. No new complaints. No overnight events. On Mech Vent - Objective Resuscitation Status: Resuscitation Status FULL:Full Resuscitation MAR Reviewed: Yes Vital Signs & Weight: Vital Signs (12 hours) Temp Pulse Resp BP Pulse Ox 10/07/17 18:27 74 10/07/17 18:26 74 16 93 L 10/07/17 16:00 98.2 F 10/07/17 15:52 76 90/53 L 10/07/17 14:06 75 11 L 96 10/07/17 13:39 79 98/55 L 10/07/17 12:00 98.1 F 10/07/17 10:27 83 93/57 L Weight Admit Weight 160 lb Weight 189 lb 6.033 oz Most Recent Monitor Data Heart Rate from ECG 76 NIBP 97/60 NIBP BP-Mean 69 Respiration from ECG 14 SpO2 94 I&O: 10/06/17 10/07/17 10/08/17 06:59 06:59 06:59 Intake Total 1970.3 2648.9 1424 Output Total 875 1098 680 Balance 1095.3 1550.9 744 Result Diagrams: 10/08/17 06:20 10/07/17 04:18 Additional Labs: Accuchecks 10/07/17 10/07/17 10/07/17 17:06 12:09 08:41 POC Glucose 214 H 193 H 163 H 10/06/17 10/06/17 23:10 20:25 POC Glucose 181 H 162 H EKG Reviewed by me: Yes (Tele SR) Phys Exam - Physical Examination Constitutional: NAD (on Vent, Opens eyes to verbal command) Respiratory: no wheezing Scat rales at bases Cardiovascular: RRR, no rub Gastrointestinal: soft, non-tender, positive bowel sounds Musculoskeletal: no edema Dx/Plan - Plan DVT proph w/lovenox, DVT proph w/SCDs IMPRESSION: 1. Acute on chronic hypoxic resp failue - on Mech Vent 2. COPD Exacerbation 3. Obesity BMI 31.5 4. DM2 5. Afib with RVR - in SR 6. Other issues per previous notes PLAN: * Critical care following * Cont Atbx per Critical care * Cardio following * Cont sliding scale * Cont current meds as below Review of Systems - Medications/Allergies Allergies/Adverse Reactions: Allergies Allergy/AdvReac Type Severity Reaction Status Date / Time Iodinated Contrast- Oral and Allergy Verified 08/30/17 23:36 IV Dye iodine Allergy Verified 08/30/17 23:36 Medications: Current Medications Acetaminophen (Tylenol) 650 mg PO Q4H PRN PRN Reason: Headache/Fever or Pain Al Hydroxide/Mg Hydroxide (Maalox) 30 ml PO Q6H PRN PRN Reason: Heartburn or Indigestion Albuterol/Ipratropium (Duoneb) 3 ml NEB [id number] [facility] Last Admin: 10/07/17 18:26 Dose: 3 ml Artificial Tears (Tears Naturale) 0 drop EA EYE PRN PRN PRN Reason: Dry Eyes Atorvastatin Calcium (Lipitor) 10 mg PO HS [facility] Last Admin: 10/07/17 19:42 Dose: 10 mg Dextrose/Water (Dextrose 50%) 25 gm SLOW IVP PRN PRN PRN Reason: Hypoglycemia Enoxaparin Sodium (Lovenox) 40 mg SC 0900 [facility] Last Admin: 10/07/17 08:48 Dose: 40 mg Famotidine (Pepcid) 20 mg PER TUBE BID [facility] Last Admin: 10/07/17 19:42 Dose: 20 mg Glucagon (Glucagon) 1 mg IM PRN PRN PRN Reason: Hypoglycemia Guaifenesin (Robitussin Sf) 300 mg PER TUBE Q6HR [facility] Last Admin: 10/07/17 17:06 Dose: 300 mg Hydralazine HCl (Apresoline) 10 mg SLOW IVP Q4H PRN PRN Reason: Systolic BP > 180 Dextrose/Water (D5w) 1,000 mls @ 0 mls/hr IV .Q0M PRN; As Directed PRN Reason: Hypoglycemia Cefepime HCl 2 gm/ Syringe 2.5 (ml/ Sodium Chloride) 12.5 mls @ 150 mls/hr SLOW IVP 0600,1800 [facility] Last Admin: 10/07/17 17:05 Dose: 12.5 mls Norepinephrine Bitartrate (Levophed) 250 mls @ 0 mls/hr IVPB INF PRN; Protocol ; Titrate PRN Reason: Blood Pressure Amiodarone HCl 450 mg/Miscellaneous Medication 1 each/ Dextrose/Water 259 mls @ 0 mls/hr IVPB INF [facility]; As Directed PRN Reason: Protocol Last Admin: 10/07/17 19:42 Dose: 259 mls Fentanyl Citrate 2,000 mcg/ (Sodium Chloride) 100 mls @ 0 mls/hr IV INF [facility] PRN Reason: As Directed Last Admin: 10/07/17 01:15 Dose: 100 mls Fentanyl Citrate (Fentanyl Bolus) 250 mls @ 0 mls/hr IVPB PRN PRN; As Directed PRN Reason: Breakthrough pain Stop: 11/03/17 14:46 Sodium Chloride (Normal Saline 0.9%) 1,000 mls @ 75 mls/hr IV .[id number] [facility] Last Admin: 10/07/17 08:47 Dose: 1,000 mls Insulin Human Lispro (Humalog) 0 units SC .MODERATE SLIDING SC PRN PRN Reason: Moderate Correctional Scale Last Admin: 10/07/17 19:44 Dose: 2 unit Insulin Human Lispro (Humalog) 0 units SC .BEDTIME SLIDING SC PRN PRN Reason: Bedtime Correctional Scale Last Admin: 10/03/17 21:04 Dose: 2 unit Loperamide HCl (Imodium) 2 mg PO PRN PRN PRN Reason: Diarrhea/Loose Stools Lorazepam (Ativan) 2 mg SLOW IVP Q2H PRN PRN Reason: Anxiety to achieve Soliz 2-3 Stop: 11/03/17 14:46 Last Admin: 10/07/17 19:42 Dose: 2 mg Magnesium Hydroxide (Milk Of Magnesium) 30 ml PO DAILYPRN PRN PRN Reason: Constipation Metformin HCl (Glucophage) 500 mg PER TUBE BID-[facility] Last Admin: 10/07/17 17:05 Dose: 500 mg Methylprednisolone Sodium Succinate (Solu-Medrol) 40 mg IVP BID [facility] Last Admin: 10/07/17 19:42 Dose: 40 mg Metoclopramide HCl (Reglan) 10 mg IVP Q8HR [facility] Last Admin: 10/07/17 19:42 Dose: 10 mg Mineral Oil/White Petrolatum (Eucerin Cream) 0 gm TOP BIDPRN PRN PRN Reason: Dry Skin Morphine Sulfate (Morphine) 2 mg SLOW IVP Q2H PRN PRN Reason: BREAKTHROUGH PAIN Stop: 11/03/17 15:00 Ondansetron HCl (Zofran Odt) 4 mg PO Q6H PRN PRN Reason: Nausea/Vomiting Ondansetron HCl (Zofran) 4 mg IVP Q6H PRN PRN Reason: Nausea/Vomiting Phenol (Chloraseptic [place] 180 Ml Bot) 0 ml PO PRN PRN PRN Reason: Sore Throat Pioglitazone HCl (Actos) 30 mg PER TUBE QAM [facility] Last Admin: 10/07/17 08:48 Dose: 30 mg Propofol (Diprivan) 1,000 mg IV INF PRN; Protocol PRN Reason: TO ACHIEVE SOLIZ SCORE 2-3 Stop: 11/03/17 14:46 Senna (Senokot) 2 tab PO HSPRN PRN PRN Reason: Constipation Sodium Chloride ([place] Nasal [place] 0.65%) 0 ml EA NARE QIDPRN PRN PRN Reason: Nasal Congestion Sodium Chloride (Flush - Normal Saline) 10 ml IVF Q12HR [facility] Last Admin: 10/07/17 19:43 Dose: 10 ml Sodium Chloride (Flush - Normal Saline) 10 ml IVF PRN PRN PRN Reason: Saline Flush Last Admin: 10/07/17 08:52 Dose: 10 ml
[2017-10-08] MEDS: Diabetic Tussin 200 MG/10 ML UDCUP PER TUBE SCH ×5 (01:16→23:44)
[2017-10-08] MEDS: Sodium Chloride 0.9% 1,000 ML IV SCH ×3 (01:17→17:20)
[2017-10-08] MEDS: HumaLOG 300 UNITS/3 ML VIAL SC PRN ×4 (02:08→20:03)
[2017-10-08] MEDS: Lorazepam 2 MG/ML VIAL SLOW IVP PRN ×3 (03:32→19:53)
[2017-10-08] MEDS: Cefepime 2 GM, Syringe 2.5 ML in Sodium Chloride 0.9% 10 ML SLOW IVP SCH ×2 (06:27→17:20)
[2017-10-08] MEDS: Metoclopramide HCl 10 MG/2 ML VIAL IVP SCH ×3 (06:28→21:47)
[2017-10-08 06:46] LABS: #Eosinphils 0.1 thou/uL (0.0-0.7); #Lymphocytes 0.5 thou/uL (1.20-3.40); #Monocytes 0.8 thou/uL (0.11-0.59); #Neutrophils 11.3 thou/uL (1.40-6.50); %Eosinophils 0.7 % (0.0-10.0); %Lymphocytes 3.6 % (21.0-51.0); %Monocytes 6.2 % (0.0-10.0); %Neutrophils 89.5 % (42.0-75.0); Hemoglobin 11.2 g/dL (14.0-18.0); Mean Corpuscular HGB CONC 33.2 g/dL (32.0-36.0); Mean Corpuscular Hemoglobin 33.1 pg (27.0-31.0); Mean Corpuscular Volume 99.5 fl (80.0-94.0); Mean Platelet Volume 7.2 fL (7.4-10.4); Platelet Count 186 thou/uL (130-400); RBC Distribution Width 12.8 % (11.5-14.5); Red Blood Cell (RBC) Count 3.38 mill/uL (4.70-6.10); White Blood Cell (WBC) Count 12.7 thou/uL (4.8-10.8)
[2017-10-08 07:13] LABS: Anion Gap 11 mmol/L (10-20); BUN (Urea Nitrogen) 39 mg/dL (8.4-25.7); Calc. Creatinine Clearance 99 mL/min (70-130); Calcium 7.5 mg/dL (7.8-10.44); Carbon Dioxide 18 mmol/L (23-31); Chloride 109 mmol/L (98-107); Estimated GFR-MDRD Greater than 90; Glucose 187 mg/dL (83-110); Magnesium 2.1 mg/dL (1.6-2.6); Potassium 4.5 mmol/L (3.5-5.1); Sodium 133 mmol/L (136-145)
[2017-10-08 07:21] LABS: Phosphorus 1.8 mg/dL (2.3-4.7)
[2017-10-08] MEDS ORDERED: Furosemide 20 MG/2 ML VIAL SLOW IVP SCH (08:00)
[2017-10-08] MEDS ORDERED: CCU Electrolyte Replacement 1 EACH FS ONE (08:03)
[2017-10-08] MEDS ORDERED: Potassium Chloride 20 MEQ TAB PO PRN (08:07)
[2017-10-08] MEDS ORDERED: Potassium Phosphate 9 MMOL in Sodium Chloride 0.9% 100 ML IVPB PRN (08:07)
[2017-10-08] MEDS ORDERED: CCU ELECTROLYTE REPLACEMENT PROTOCOL FS PRN (08:07)
[2017-10-08] MEDS ORDERED: Potassium Phosphate 12 MMOL in Sodium Chloride 0.9% 250 ML 250 ML IV PRN (08:07)
[2017-10-08] MEDS ORDERED: Potassium Phosphate 15 MMOL in Sodium Chloride 0.9% 250 ML 250 ML IV PRN (08:07)
[2017-10-08] MEDS ORDERED: Potassium Chloride 40 MEQ in Premix Bag 1 BAG IVPB PRN (08:07)
[2017-10-08] MEDS ORDERED: Potassium Chloride 40 MEQ in Sodium Chloride 0.9% 250 ML 250 ML IVPB PRN (08:07)
[2017-10-08] MEDS ORDERED: Magnesium 2 GM/NS 0.9% 100 ML 2 GM in Premix Bag 1 BAG IVPB PRN (08:07)
[2017-10-08] MEDS ORDERED: Magnesium Oxide 400 MG TAB PO PRN ×2 (08:07)
[2017-10-08 08:19] LABS: Actual Bicarbonate (HCO3a) 21.7 mEq/L (22-26); Base Excess (BEa) -3.5 mEq/L (0 (+/-) 2.5); CO2 Tension 39.8 mmHg (35.0-45.0); O2 Tension (PaO2) 62.5 mmHg (80.0-100.0); pH, Arterial 7.36 (7.35-7.45)
[2017-10-08 08:20] LABS: Hematocrit-ABG 35.9 % (42.0-52.0); Hemoglobin (Hb) 11.3 g/dL (14.0-18.0); Puncture Site RRA
[2017-10-08] MEDS: Famotidine 20 MG TAB PER TUBE SCH ×2 (09:27→20:03)
[2017-10-08] MEDS: Enoxaparin Sodium 40 MG/0.4 ML SYRINGE SC SCH (09:27)
[2017-10-08] MEDS: Pioglitazone HCl 15 MG TAB PER TUBE SCH (09:28)
[2017-10-08] MEDS: metFORMIN 500 MG TAB PER TUBE SCH ×2 (09:28→17:20)
[2017-10-08] MEDS: Amiodarone HCl 450 MG, Admixture Fee 1 EACH in Dextrose 5% in Water 250 ML IVPB SCH (11:34)
--- NOTE | 2017-10-08 13:02 | RAD ---
AP VIEW CHEST: HISTORY: Ventilator-dependent patient. COMPARISON: Comparison is made to previous exam from 10/06/17. FINDINGS: AP view chest demonstrates sternotomy wires seen. A nasogastric tube is in place. The patient is in tubated. Cardiomegaly is seen. Pulmonary vascular congestion is seen. Bilateral airspace opacities seen throughout the lungs unchanged since the previous exam. Bilateral pleural effusions seen. IMPRESSION: Stable AP view chest with no significant interval changes seen. POS: H
--- NOTE | 2017-10-08 18:52 | PRG ---
DATE OF SERVICE: 10/08/2017 SUBJECTIVE: Daniel Lorenzana this morning, intubated on the vent, awake, has no drip. OBJECTIVE: VITAL SIGNS: Blood pressure 120/56, pulse 60, respirations 18. His I's and O's have been slightly a head, 2648 in and 1098 out. CHEST: Reveals bilateral crackles. CARDIAC: Normal S1, S2. ADBOMEN: Soft. No masses. LABORATORY DATA AND IMAGING DATA: White count 12,000, hemoglobin and hematocrit 9 and 33, platelet c ount 186,000. Electrolytes are normal. Sodium 133. X-ray still shows bilateral infiltrates, questi onable small pleural effusion. IMPRESSION: 1. Respiratory failure. 2. Pneumonia with lung cancer. 3. Severe deconditioning with ileus. PLAN: Vent is being adjusted. I am not sure he is still weanable at this stage. Trial of Lasix is being given. We will follow. One and half hour critical care time.
[2017-10-08] MEDS: Atorvastatin Calcium 10 MG TAB PO SCH (20:03)
--- NOTE | 2017-10-08 22:17 | PDOC.PN ---
- Subjective Encounter Start Date: 10/08/17 Encounter Start Time: 08:00 Patient seen and examined. On Mech Vent. No overnight events - Objective Resuscitation Status: Resuscitation Status FULL:Full Resuscitation MAR Reviewed: Yes Vital Signs & Weight: Vital Signs (12 hours) Temp Pulse Resp BP Pulse Ox 10/08/17 22:00 21 H 10/08/17 20:00 98.1 F 91 21 H 91 L 10/08/17 19:01 79 10/08/17 19:00 79 22 H 93 L 10/08/17 16:00 98.2 F 13 10/08/17 15:17 82 102/62 10/08/17 12:34 78 106/56 L 10/08/17 12:00 97.6 F 18 10/08/17 11:04 74 112/64 Weight Admit Weight 160 lb Weight 190 lb 4.143 oz Most Recent Monitor Data Heart Rate from ECG 92 NIBP 126/78 NIBP BP-Mean 92 Respiration from ECG 20 SpO2 95 I&O: 10/07/17 10/08/17 10/09/17 06:59 06:59 06:59 Intake Total 2648.9 1484 2183 Output Total 1098 1730 745 Balance 1550.9 -246 1438 Result Diagrams: 10/09/17 04:45 10/09/17 04:45 Additional Labs: Accuchecks 10/08/17 10/08/17 10/08/17 20:03 15:46 11:34 POC Glucose 179 H 174 H 95 10/08/17 10/08/17 10/08/17 09:12 06:27 01:55 POC Glucose 105 190 H 191 H EKG Reviewed by me: Yes (Tele SR) Phys Exam - Physical Examination Constitutional: NAD Respiratory: no wheezing Coarse BS B/L Cardiovascular: RRR, no rub Gastrointestinal: soft, positive bowel sounds Musculoskeletal: no edema Dx/Plan - Plan DVT proph w/lovenox IMPRESSION: 1. Acute on chronic hypoxic resp failue - on Mech Vent 2. COPD Exacerbation - on Atbx/Steroids 3. Obesity BMI 31.5 4. DM2 - on mild sliding scale 5. Afib with RVR - in SR - on Amiodarone drip 6. Other issues per previous notes PLAN: * Critical care/Cardio following * Cont Atbx/Steroids * Cont sliding scale * Cont current meds as below * Cont Nebs Review of Systems - Review of Systems Other: Cannot obtain due to sedation - Medications/Allergies Allergies/Adverse Reactions: Allergies Allergy/AdvReac Type Severity Reaction Status Date / Time Iodinated Contrast- Oral and Allergy Verified 08/30/17 23:36 IV Dye iodine Allergy Verified 08/30/17 23:36 Medications: Current Medications Acetaminophen (Tylenol) 650 mg PO Q4H PRN PRN Reason: Headache/Fever or Pain Al Hydroxide/Mg Hydroxide (Maalox) 30 ml PO Q6H PRN PRN Reason: Heartburn or Indigestion Albuterol/Ipratropium (Duoneb) 3 ml NEB [id number] [facility] Last Admin: 10/08/17 19:00 Dose: 3 ml Artificial Tears (Tears Naturale) 0 drop EA EYE PRN PRN PRN Reason: Dry Eyes Atorvastatin Calcium (Lipitor) 10 mg PO HS [facility] Last Admin: 10/08/17 20:03 Dose: 10 mg Dextrose/Water (Dextrose 50%) 25 gm SLOW IVP PRN PRN PRN Reason: Hypoglycemia Enoxaparin Sodium (Lovenox) 40 mg SC 0900 [facility] Last Admin: 10/08/17 09:27 Dose: 40 mg Famotidine (Pepcid) 20 mg PER TUBE BID [facility] Last Admin: 10/08/17 20:03 Dose: 20 mg Glucagon (Glucagon) 1 mg IM PRN PRN PRN Reason: Hypoglycemia Guaifenesin (Robitussin Sf) 300 mg PER TUBE Q6HR [facility] Last Admin: 10/08/17 17:21 Dose: 300 mg Hydralazine HCl (Apresoline) 10 mg SLOW IVP Q4H PRN PRN Reason: Systolic BP > 180 Dextrose/Water (D5w) 1,000 mls @ 0 mls/hr IV .Q0M PRN; As Directed PRN Reason: Hypoglycemia Cefepime HCl 2 gm/ Syringe 2.5 (ml/ Sodium Chloride) 12.5 mls @ 150 mls/hr SLOW IVP 0600,1800 [facility] Last Admin: 10/08/17 17:20 Dose: 12.5 mls Norepinephrine Bitartrate (Levophed) 250 mls @ 0 mls/hr IVPB INF PRN; Protocol ; Titrate PRN Reason: Blood Pressure Amiodarone HCl 450 mg/Miscellaneous Medication 1 each/ Dextrose/Water 259 mls @ 0 mls/hr IVPB INF [facility]; As Directed PRN Reason: Protocol Last Admin: 10/08/17 11:34 Dose: 259 mls Fentanyl Citrate 2,000 mcg/ (Sodium Chloride) 100 mls @ 0 mls/hr IV INF [facility] PRN Reason: As Directed Last Admin: 10/07/17 01:15 Dose: 100 mls Fentanyl Citrate (Fentanyl Bolus) 250 mls @ 0 mls/hr IVPB PRN PRN; As Directed PRN Reason: Breakthrough pain Stop: 11/03/17 14:46 Sodium Chloride (Normal Saline 0.9%) 1,000 mls @ 75 mls/hr IV .[id number] [facility] Last Admin: 10/08/17 17:20 Dose: 1,000 mls Potassium Chloride 40 meq/ (Sodium Chloride) 270 mls @ 135 mls/hr IVPB ASDIR PRN PRN Reason: FOR SERUM K+ 2.5 - 3.5 Potassium Chloride 40 meq/ (Device) 100 mls @ 50 mls/hr IVPB ASDIR PRN PRN Reason: FOR SERUM K+ 2.5 - 3.5 Magnesium Sulfate 1 gm/ Sodium (Chloride) 102 mls @ 102 mls/hr IV PRN PRN PRN Reason: MAG LEVEL 1.4 - 2.0 Magnesium Sulfate 2 gm/ Device 100 mls @ 100 mls/hr IVPB ASDIR PRN PRN Reason: MAGNESIUM < 1.4 Potassium Phosphate 9 mmol/ (Sodium Chloride) 103 mls @ 25.75 mls/hr IVPB ASDIR PRN PRN Reason: Phosphate 1.0-1.8 Last Admin: 10/08/17 09:27 Dose: 103 mls Potassium Phosphate 12 mmol/ (Sodium Chloride) 254 mls @ 63.5 mls/hr IV ASDIR PRN PRN Reason: Serum phosphate 0.5-0.9 Potassium Phosphate 15 mmol/ (Sodium Chloride) 255 mls @ 63.75 mls/hr IV ASDIR PRN PRN Reason: Serum Phos < 0.5 Insulin Human Lispro (Humalog) 0 units SC .MODERATE SLIDING SC PRN PRN Reason: Moderate Correctional Scale Last Admin: 10/08/17 20:03 Dose: 2 unit Insulin Human Lispro (Humalog) 0 units SC .BEDTIME SLIDING SC PRN PRN Reason: Bedtime Correctional Scale Last Admin: 10/03/17 21:04 Dose: 2 unit Loperamide HCl (Imodium) 2 mg PO PRN PRN PRN Reason: Diarrhea/Loose Stools Lorazepam (Ativan) 2 mg SLOW IVP Q2H PRN PRN Reason: Anxiety to achieve Soliz 2-3 Stop: 11/03/17 14:46 Last Admin: 10/08/17 19:53 Dose: 2 mg Magnesium Hydroxide (Milk Of Magnesium) 30 ml PO DAILYPRN PRN PRN Reason: Constipation Magnesium Oxide (Magnesium Oxide) 400 mg PO BIDPRN PRN PRN Reason: FOR SERUM MAG 1.4 - 2.0 Magnesium Oxide (Magnesium Oxide) 800 mg PO PRN PRN PRN Reason: FOR SERUM MAG < 1.4 Metformin HCl (Glucophage) [facility] Last Admin: 10/08/17 17:20 Dose: 500 mg Methylprednisolone Sodium Succinate (Solu-Medrol) 40 mg IVP BID [facility] Last Admin: 10/08/17 20:03 Dose: 40 mg Metoclopramide HCl (Reglan) 10 mg IVP Q8HR [facility] Last Admin: 10/08/17 21:47 Dose: 10 mg Mineral Oil/White Petrolatum (Eucerin Cream) 0 gm TOP BIDPRN PRN PRN Reason: Dry Skin Miscellaneous Medication (Phos-Nak) 1 pkt PO TIDPRN PRN PRN Reason: FOR PHOS LEVEL 1.0 - 1.8 Miscellaneous Medication (Phos-Nak) 2 pkt PO TIDPRN PRN PRN Reason: FOR PHOS LEVEL 0.5 - 1.0 Morphine Sulfate (Morphine) 2 mg SLOW IVP Q2H PRN PRN Reason: BREAKTHROUGH PAIN Stop: 11/03/17 15:00 Ccu Electrolyte (Replacement Protocol) 0 each FS PRN PRN PRN Reason: FOR ELECTROLYTE REPLACEMENT Ondansetron HCl (Zofran Odt) 4 mg PO Q6H PRN PRN Reason: Nausea/Vomiting Ondansetron HCl (Zofran) 4 mg IVP Q6H PRN PRN Reason: Nausea/Vomiting Phenol (Chloraseptic [place] 180 Ml Bot) 0 ml PO PRN PRN PRN Reason: Sore Throat Pioglitazone HCl (Actos) 30 mg PER TUBE QAM [facility] Last Admin: 10/08/17 09:28 Dose: Not Given Potassium Chloride (K-Dur) 40 meq PO ASDIR PRN PRN Reason: FOR SERUM K+ 2.5 - 3.5 Potassium Chloride (Klor-Con) 40 meq PER TUBE ASDIR PRN PRN Reason: FOR SERUM K+ 2.5-3.5 Propofol (Diprivan) 1,000 mg IV INF PRN; Protocol PRN Reason: TO ACHIEVE SOLIZ SCORE 2-3 Stop: 11/03/17 14:46 Senna (Senokot) 2 tab PO HSPRN PRN PRN Reason: Constipation Sodium Chloride ([place] Nasal [place] 0.65%) 0 ml EA NARE QIDPRN PRN PRN Reason: Nasal Congestion Sodium Chloride (Flush - Normal Saline) 10 ml IVF Q12HR [facility] Last Admin: 10/08/17 20:03 Dose: 10 ml Sodium Chloride (Flush - Normal Saline) 10 ml IVF PRN PRN PRN Reason: Saline Flush Last Admin: 10/08/17 09:28 Dose: 10 ml
[2017-10-08] MEDS: Propofol 1,000 MG/100 ML VIAL IV PRN (22:49)
[2017-10-09] MEDS: Propofol 1,000 MG/100 ML VIAL IV PRN (04:42)
[2017-10-09] MEDS: Amiodarone HCl 450 MG, Admixture Fee 1 EACH in Dextrose 5% in Water 250 ML IVPB SCH ×2 (04:46→21:31)
[2017-10-09] MEDS: HumaLOG 300 UNITS/3 ML VIAL SC PRN ×5 (04:53→20:45)
[2017-10-09] MEDS: Cefepime 2 GM, Syringe 2.5 ML in Sodium Chloride 0.9% 10 ML SLOW IVP SCH ×2 (05:00→17:37)
[2017-10-09] MEDS: Metoclopramide HCl 10 MG/2 ML VIAL IVP SCH ×3 (05:00→21:28)
[2017-10-09] MEDS: Diabetic Tussin 200 MG/10 ML UDCUP PER TUBE SCH ×3 (05:00→17:35)
[2017-10-09 05:39] LABS: #Eosinphils 0.1 thou/uL (0.0-0.7); #Lymphocytes 0.4 thou/uL (1.20-3.40); #Monocytes 0.6 thou/uL (0.11-0.59); #Neutrophils 11.8 thou/uL (1.40-6.50); %Eosinophils 0.9 % (0.0-10.0); %Lymphocytes 3.3 % (21.0-51.0); %Monocytes 4.7 % (0.0-10.0); %Neutrophils 91.1 % (42.0-75.0); Hemoglobin 11.7 g/dL (14.0-18.0); Mean Corpuscular HGB CONC 33.9 g/dL (32.0-36.0); Mean Corpuscular Hemoglobin 33.7 pg (27.0-31.0); Mean Corpuscular Volume 99.5 fl (80.0-94.0); Mean Platelet Volume 7.6 fL (7.4-10.4); Platelet Count 220 thou/uL (130-400); RBC Distribution Width 13.1 % (11.5-14.5); Red Blood Cell (RBC) Count 3.48 mill/uL (4.70-6.10)
[2017-10-09 06:33] LABS: Anion Gap 11 mmol/L (10-20); BUN (Urea Nitrogen) 38 mg/dL (8.4-25.7); Calc. Creatinine Clearance 96 mL/min (70-130); Carbon Dioxide 20 mmol/L (23-31); Chloride 107 mmol/L (98-107); Estimated GFR-MDRD Greater than 90; Glucose 250 mg/dL (83-110); Phosphorus 2.3 mg/dL (2.3-4.7); Potassium 4.9 mmol/L (3.5-5.1); Sodium 133 mmol/L (136-145)
[2017-10-09 07:19] LABS: Actual Bicarbonate (HCO3a) 20.9 mEq/L (22-26); Base Excess (BEa) -5.7 mEq/L (0 (+/-) 2.5); CO2 Tension 45.4 mmHg (35.0-45.0); Hematocrit-ABG 36.6 % (42.0-52.0); Hemoglobin (Hb) 11.7 g/dL (14.0-18.0); O2 Tension (PaO2) 62.3 mmHg (80.0-100.0); pH, Arterial 7.28 (7.35-7.45)
[2017-10-09 07:20] LABS: Calcium, Ionized 1.3 mmol/L (1.12-1.30); Puncture Site LRA
[2017-10-09] MEDS: Pioglitazone HCl 15 MG TAB PER TUBE SCH (08:10)
[2017-10-09] MEDS: metFORMIN 500 MG TAB PER TUBE SCH ×2 (08:11→17:34)
[2017-10-09] MEDS: Enoxaparin Sodium 40 MG/0.4 ML SYRINGE SC SCH (08:11)
[2017-10-09] MEDS: Famotidine 20 MG TAB PER TUBE SCH ×2 (08:11→20:36)
--- NOTE | 2017-10-09 08:17 | PRG ---
DATE OF SERVICE: 10/09/2017 He was agitated last night, biting on the endotracheal tube. He was started on Diprivan. PHYSICAL EXAMINATION: VITAL SIGNS: Sats are 94, blood pressure 102/62, temperature is 93. His I's and O's 1484 in, 173 o ut. CHEST: Chest revealed bilateral rhonchi and crackles, extensive. CARDIAC: Sinus tachycardia. ABDOMEN: Soft, no masses. LABORATORY: White count 13,000, H&H 9 and 34, platelet count 220, pO2 62, pCO2 47.68, on a rate of 1 0, 40%, 500, a PEEP of 8. Electrolytes are normal. X-ray still shows bilateral pleural effusion. IMPRESSION: 1. Bilateral bronchopneumonia, gram negative. 2. Chronic obstructive pulmonary disease. 3. Bronchogenic carcinoma. 4. Severe deconditioning. PLAN: I am not sure he is going to be weanable. He is still on his Cordarone, antibiotics, nebulize r treatments, supportive care. Family to make a decision about withdrawal of care, comfort care, etc . In the meantime, minimize sedation. PT, and supportive care. One-half hour critical care time. I will follow.
--- NOTE | 2017-10-09 09:17 | RAD ---
SINGLE VIEW OF THE CHEST: COMPARISON: 10/08/17. HISTORY: Ventilated patient with respiratory failure. FINDINGS: A single view of the chest shows an enlarged but stable cardiomediastinal silhouette. The patient is status post sternotomy. The lines and tubes are unchanged in position. There is a stable infiltrat e in the right lower lobe. IMPRESSION: Stable exam. POS: [facility]
[2017-10-09 09:53] VITALS: BMI 31.9
[2017-10-09] MEDS: Sodium Chloride 0.9% 1,000 ML IV SCH (10:23)
[2017-10-09] MEDS: Lorazepam 2 MG/ML VIAL SLOW IVP PRN ×2 (11:41→21:39)
--- NOTE | 2017-10-09 14:04 | PDOC.PN ---
- Subjective Encounter Start Date: 10/09/17 Encounter Start Time: 14:02 Subjective: remains intubated.discussed w family.prognosis discussed -: awakens to sound.writes on paper but not weanable off the vent - Objective Resuscitation Status: Resuscitation Status FULL:Full Resuscitation MAR Reviewed: Yes Vital Signs & Weight: Vital Signs (12 hours) Temp Pulse Resp BP Pulse Ox 10/09/17 12:00 98.4 F 10/09/17 11:47 24 H 10/09/17 11:22 105 H 136/81 10/09/17 10:00 25 H 10/09/17 08:00 98.7 F 81 31 H 96 10/09/17 07:08 81 101/62 10/09/17 07:07 80 21 H 94 L 10/09/17 06:00 29 H 10/09/17 04:00 98.3 F 24 H Weight Admit Weight 160 lb Weight 192 lb 0.362 oz Most Recent Monitor Data Heart Rate from ECG 103 NIBP 137/79 NIBP BP-Mean 89 Respiration from ECG 29 SpO2 95 I&O: 10/08/17 10/09/17 10/10/17 06:59 06:59 06:59 Intake Total 1484 3678.9 60 Output Total 1730 1125 165 Balance -246 2553.9 -105 Result Diagrams: 10/10/17 04:10 10/10/17 04:10 Additional Labs: Accuchecks 10/09/17 10/09/17 10/09/17 11:35 08:27 04:46 POC Glucose 187 H 174 H 232 H 10/08/17 10/08/17 10/08/17 23:53 20:03 15:46 POC Glucose 173 H 179 H 174 H Microbiology 10/02/17 08:45 Bronchial Washing Respiratory Culture - Final Pseudomonas aeruginosa 09/30/17 12:15 Venous blood - Right Hand Blood Culture - Final NO GROWTH IN 5 DAYS 09/30/17 12:10 Venous blood - Right Arm Blood Culture - Final NO GROWTH IN 5 DAYS Phys Exam - Physical Examination intubated.restless ,wakes up to sounds HEENT: PERRLA, moist MMs, sclera anicteric Neck: no JVD Respiratory: no wheezing caorse breath sounds b/l Cardiovascular: RRR, no significant murmur Gastrointestinal: soft, no distention, positive bowel sounds Musculoskeletal: pulses present, edema present Neurological: moves all 4 limbs Skin: no rash Dx/Plan (1) Acute on chronic respiratory failure with hypoxia Code(s): J96.21 - ACUTE AND CHRONIC RESPIRATORY FAILURE WITH HYPOXIA Status: Acute (2) Bronchopneumonia Code(s): J18.0 - BRONCHOPNEUMONIA, UNSPECIFIED ORGANISM Status: Acute Comment: Pseudomonas on BAL Cx (3) Atrial fibrillation with RVR Code(s): I48.91 - UNSPECIFIED ATRIAL FIBRILLATION Status: Acute Comment: on Amiodarone drip.cardiology folllowing (4) COPD (chronic obstructive pulmonary disease) Status: Acute (5) Adenocarcinoma of lung, stage 4 Code(s): C34.90 - MALIGNANT NEOPLASM OF UNSP PART OF UNSP BRONCHUS OR LUNG Status: Chronic (6) CAD (coronary artery disease) Code(s): I25.10 - ATHSCL HEART DISEASE OF [place] CORONARY ARTERY W/O ANG PCTRS Status: Chronic Qualifiers: (7) Diabetes type 2, controlled Code(s): E11.9 - TYPE 2 DIABETES MELLITUS WITHOUT COMPLICATIONS Status: Chronic (8) H/O malignant neoplasm of colon Code(s): Z85.038 - PERSONAL HISTORY OF MALIGNANT NEOPLASM OF LARGE INTESTINE Status: Chronic Comment: s/p Colectomy 2016 (9) Hypertension Code(s): I10 - ESSENTIAL (PRIMARY) HYPERTENSION Status: Chronic Qualifiers: (10) Malignant pleural effusion Code(s): J91.0 - MALIGNANT PLEURAL EFFUSION Status: Chronic - Plan plan discussed w/ family, DVT proph w/SCDs family requesting DNR status per nurse & PCT/ -: Would like to discuss w Dr. Scott.[facility] care -: cont current care for now.Supportive management -: Poor correction prognosis w advanced Lung CA -: cont ABx,nebs,Vent support. * . Review of Systems - Review of Systems Other: can not be obtained due to intubated status - Medications/Allergies Allergies/Adverse Reactions: Allergies Allergy/AdvReac Type Severity Reaction Status Date / Time Iodinated Contrast- Oral and Allergy Verified 08/30/17 23:36 IV Dye iodine Allergy Verified 08/30/17 23:36 Medications: Current Medications Acetaminophen (Tylenol) 650 mg PO Q4H PRN PRN Reason: Headache/Fever or Pain Al Hydroxide/Mg Hydroxide (Maalox) 30 ml PO Q6H PRN PRN Reason: Heartburn or Indigestion Albuterol/Ipratropium (Duoneb) 3 ml NEB [id number] [facility] Last Admin: 10/09/17 11:21 Dose: 3 ml Artificial Tears (Tears Naturale) 0 drop EA EYE PRN PRN PRN Reason: Dry Eyes Atorvastatin Calcium (Lipitor) 10 mg PO HS [facility] Last Admin: 10/08/17 20:03 Dose: 10 mg Dextrose/Water (Dextrose 50%) 25 gm SLOW IVP PRN PRN PRN Reason: Hypoglycemia Enoxaparin Sodium (Lovenox) 40 mg SC 0900 [facility] Last Admin: 10/09/17 08:11 Dose: 40 mg Famotidine (Pepcid) 20 mg PER TUBE BID [facility] Last Admin: 10/09/17 08:11 Dose: 20 mg Glucagon (Glucagon) 1 mg IM PRN PRN PRN Reason: Hypoglycemia Guaifenesin (Robitussin Sf) 300 mg PER TUBE Q6HR [facility] Last Admin: 10/09/17 11:35 Dose: 300 mg Hydralazine HCl (Apresoline) 10 mg SLOW IVP Q4H PRN PRN Reason: Systolic BP > 180 Dextrose/Water (D5w) 1,000 mls @ 0 mls/hr IV .Q0M PRN; As Directed PRN Reason: Hypoglycemia Cefepime HCl 2 gm/ Syringe 2.5 (ml/ Sodium Chloride) 12.5 mls @ 150 mls/hr SLOW IVP 0600,1800 [facility] Last Admin: 10/09/17 05:00 Dose: 12.5 mls Norepinephrine Bitartrate (Levophed) 250 mls @ 0 mls/hr IVPB INF PRN; Protocol ; Titrate PRN Reason: Blood Pressure Amiodarone HCl 450 mg/Miscellaneous Medication 1 each/ Dextrose/Water 259 mls @ 0 mls/hr IVPB INF [facility]; As Directed PRN Reason: Protocol Last Admin: 10/09/17 04:46 Dose: 259 mls Fentanyl Citrate 2,000 mcg/ (Sodium Chloride) 100 mls @ 0 mls/hr IV INF [facility] PRN Reason: As Directed Last Admin: 10/07/17 01:15 Dose: 100 mls Fentanyl Citrate (Fentanyl Bolus) 250 mls @ 0 mls/hr IVPB PRN PRN; As Directed PRN Reason: Breakthrough pain Stop: 11/03/17 14:46 Sodium Chloride (Normal Saline 0.9%) 1,000 mls @ 75 mls/hr IV .[id number] [facility] Last Admin: 10/09/17 10:23 Dose: 1,000 mls Potassium Chloride 40 meq/ (Sodium Chloride) 270 mls @ 135 mls/hr IVPB ASDIR PRN PRN Reason: FOR SERUM K+ 2.5 - 3.5 Potassium Chloride 40 meq/ (Device) 100 mls @ 50 mls/hr IVPB ASDIR PRN PRN Reason: FOR SERUM K+ 2.5 - 3.5 Magnesium Sulfate 1 gm/ Sodium (Chloride) 102 mls @ 102 mls/hr IV PRN PRN PRN Reason: MAG LEVEL 1.4 - 2.0 Magnesium Sulfate 2 gm/ Device 100 mls @ 100 mls/hr IVPB ASDIR PRN PRN Reason: MAGNESIUM < 1.4 Potassium Phosphate 9 mmol/ (Sodium Chloride) 103 mls @ 25.75 mls/hr IVPB ASDIR PRN PRN Reason: Phosphate 1.0-1.8 Last Admin: 10/08/17 09:27 Dose: 103 mls Potassium Phosphate 12 mmol/ (Sodium Chloride) 254 mls @ 63.5 mls/hr IV ASDIR PRN PRN Reason: Serum phosphate 0.5-0.9 Potassium Phosphate 15 mmol/ (Sodium Chloride) 255 mls @ 63.75 mls/hr IV ASDIR PRN PRN Reason: Serum Phos < 0.5 Insulin Human Lispro (Humalog) 0 units SC .MODERATE SLIDING SC PRN PRN Reason: Moderate Correctional Scale Last Admin: 10/09/17 11:35 Dose: 2 unit Insulin Human Lispro (Humalog) 0 units SC .BEDTIME SLIDING SC PRN PRN Reason: Bedtime Correctional Scale Last Admin: 10/03/17 21:04 Dose: 2 unit Loperamide HCl (Imodium) 2 mg PO PRN PRN PRN Reason: Diarrhea/Loose Stools Lorazepam (Ativan) 2 mg SLOW IVP Q2H PRN PRN Reason: Anxiety to achieve Soliz 2-3 Stop: 11/03/17 14:46 Last Admin: 10/09/17 11:41 Dose: 2 mg Magnesium Hydroxide (Milk Of Magnesium) 30 ml PO DAILYPRN PRN PRN Reason: Constipation Magnesium Oxide (Magnesium Oxide) 400 mg PO BIDPRN PRN PRN Reason: FOR SERUM MAG 1.4 - 2.0 Magnesium Oxide (Magnesium Oxide) 800 mg PO PRN PRN PRN Reason: FOR SERUM MAG < 1.4 Metformin HCl (Glucophage) 500 mg PER TUBE BID[facility] Last Admin: 10/09/17 08:11 Dose: 500 mg Methylprednisolone Sodium Succinate (Solu-Medrol) 40 mg IVP BID [facility] Last Admin: 10/09/17 08:10 Dose: 40 mg Metoclopramide HCl (Reglan) 10 mg IVP Q8HR [facility] Last Admin: 10/09/17 05:00 Dose: 10 mg Mineral Oil/White Petrolatum (Eucerin Cream) 0 gm TOP BIDPRN PRN PRN Reason: Dry Skin Miscellaneous Medication (Phos-Nak) 1 pkt PO TIDPRN PRN PRN Reason: FOR PHOS LEVEL 1.0 - 1.8 Miscellaneous Medication (Phos-Nak) 2 pkt PO TIDPRN PRN PRN Reason: FOR PHOS LEVEL 0.5 - 1.0 Morphine Sulfate (Morphine) 2 mg SLOW IVP Q2H PRN PRN Reason: BREAKTHROUGH PAIN Stop: 11/03/17 15:00 Ccu Electrolyte (Replacement Protocol) 0 each FS PRN PRN PRN Reason: FOR ELECTROLYTE REPLACEMENT Ondansetron HCl (Zofran Odt) 4 mg PO Q6H PRN PRN Reason: Nausea/Vomiting Ondansetron HCl (Zofran) 4 mg IVP Q6H PRN PRN Reason: Nausea/Vomiting Phenol (Chloraseptic [place] 180 Ml Bot) 0 ml PO PRN PRN PRN Reason: Sore Throat Pioglitazone HCl (Actos) 30 mg [facility] Last Admin: 10/09/17 08:10 Dose: 30 mg Potassium Chloride (K-Dur) 40 meq PO ASDIR PRN PRN Reason: FOR SERUM K+ 2.5 - 3.5 Potassium Chloride (Klor-Con) 40 meq PER TUBE ASDIR PRN PRN Reason: FOR SERUM K+ 2.5-3.5 Propofol (Diprivan) 1,000 mg IV INF PRN; Protocol PRN Reason: TO ACHIEVE SOLIZ SCORE 2-3 Stop: 11/03/17 14:46 Last Admin: 10/09/17 04:42 Dose: 1,000 mg Senna (Senokot) 2 tab PO HSPRN PRN PRN Reason: Constipation Sodium Chloride ([place] Nasal [place] 0.65%) 0 ml EA NARE QIDPRN PRN PRN Reason: Nasal Congestion Sodium Chloride (Flush - Normal Saline) 10 ml IVF Q12HR [facility] Last Admin: 10/09/17 08:11 Dose: 10 ml Sodium Chloride (Flush - Normal Saline) 10 ml IVF PRN PRN PRN Reason: Saline Flush Last Admin: 10/08/17 09:28 Dose: 10 ml
--- NOTE | 2017-10-09 17:37 | PDOC.CTH ---
Cardiology Progress Note - Subjective He remains intubated and sedated. Currently in sinus tachycardia. - Objective Vital Signs Temp Pulse Resp BP Pulse Ox 10/09/17 16:00 25 H 10/09/17 15:54 98.9 F 10/09/17 14:24 99 139/76 10/09/17 14:23 99 26 H 90 L 10/09/17 14:00 22 H 10/09/17 12:00 98.4 F 10/09/17 11:47 24 H 10/09/17 11:22 105 H 136/81 10/09/17 10:00 25 H 10/09/17 08:00 98.7 F 81 31 H 96 10/09/17 07:08 81 101/62 10/09/17 07:07 80 21 H 94 L 10/09/17 06:00 29 H Admit Weight 160 lb Weight 192 lb 0.362 oz 10/08/17 10/09/17 10/10/17 06:59 06:59 06:59 Intake Total 1484 3678.9 90 Output Total 1730 1125 300 Balance -246 2553.9 -210 - Physical Examination General/Neuro: other: (sedated) Neck: no JVD present Lungs: unlabored respirations Heart: RRR Abdomen: NT/ND Extremities: other: (no edema.) - Telemetry Telemetry Rhythm: S tach - Labs Result Diagrams: 10/09/17 04:45 10/09/17 04:45 Troponin/CKMB CK-MB (CK-2) 0.8 ng/mL (0-6.6) 09/30/17 12:10 Troponin I 0.018 ng/mL (< 0.028) 10/03/17 04:27 - Assessment/Plan 1. Paroxysmal afib 2. Lung Ca. 3. Pneumonia 4. COPD PLAN: - Continue amiodarone drip - Continue supportive care. - Vent weaning per critical care.
[2017-10-09] MEDS: Morphine 4 MG/ML VIAL SLOW IVP PRN ×2 (20:27→22:14)
[2017-10-09] MEDS: Atorvastatin Calcium 10 MG TAB PO SCH (20:35)
[2017-10-09] MEDS: fentaNYL Citrate/PF 2,000 MCG in Sodium Chloride 0.9% 60 ML IV SCH (23:12)
[2017-10-10] MEDS: Diabetic Tussin 200 MG/10 ML UDCUP PER TUBE SCH ×2 (00:20→05:28)
[2017-10-10 04:58] LABS: Band 7 % (5-11); Hemoglobin 12.1 g/dL (14.0-18.0); Lymphocytes 1 % (21-51); MDiff Complete? YES; Mean Corpuscular HGB CONC 33.4 g/dL (32.0-36.0); Mean Corpuscular Hemoglobin 34.3 pg (27.0-31.0); Mean Platelet Volume 7.6 fL (7.4-10.4); Monocytes 6 % (0-10); Myelocyte 1 % (0-0); Neutrophil 85 % (42-75); Platelet Count 236 thou/uL (130-400); RBC Distribution Width 13.4 % (11.5-14.5); Red Blood Cell (RBC) Count 3.54 mill/uL (4.70-6.10); White Blood Cell (WBC) Count 14.2 thou/uL (4.8-10.8)
[2017-10-10 04:59] LABS: Anion Gap 12 mmol/L (10-20); BUN (Urea Nitrogen) 42 mg/dL (8.4-25.7); Calc. Creatinine Clearance 80 mL/min (70-130); Calcium 8.2 mg/dL (7.8-10.44); Carbon Dioxide 20 mmol/L (23-31); Chloride 108 mmol/L (98-107); Estimated GFR-MDRD 75; Glucose 216 mg/dL (83-110); Potassium 5.5 mmol/L (3.5-5.1); Sodium 134 mmol/L (136-145)
[2017-10-10] MEDS: HumaLOG 300 UNITS/3 ML VIAL SC PRN (05:25)
[2017-10-10] MEDS: Metoclopramide HCl 10 MG/2 ML VIAL IVP SCH (05:27)
[2017-10-10] MEDS: Cefepime 2 GM, Syringe 2.5 ML in Sodium Chloride 0.9% 10 ML SLOW IVP SCH (05:28)
[2017-10-10 06:36] VITALS: BP 108/59
[2017-10-10 07:19] LABS: O2 Tension (PaO2) 54.3 mmHg (80.0-100.0); pH, Arterial 7.19 (7.35-7.45)
[2017-10-10 07:20] LABS: Actual Bicarbonate (HCO3a) 20.9 mEq/L (22-26); Base Excess (BEa) -7.6 mEq/L (0 (+/-) 2.5); Calcium, Ionized 1.3 mmol/L (1.12-1.30); Hematocrit-ABG 39.5 % (42.0-52.0); Hemoglobin (Hb) 12.1 g/dL (14.0-18.0)
[2017-10-10] MEDS: Sodium Chloride 0.9% 1,000 ML IV SCH (08:33)
[2017-10-10] MEDS: Enoxaparin Sodium 40 MG/0.4 ML SYRINGE SC SCH (08:34)
[2017-10-10] MEDS: Pioglitazone HCl 15 MG TAB PER TUBE SCH (08:34)
[2017-10-10] MEDS: Famotidine 20 MG TAB PER TUBE SCH (08:34)
[2017-10-10] MEDS: metFORMIN 500 MG TAB PER TUBE SCH (08:34)
--- NOTE | 2017-10-10 09:00 | RAD ---
CHEST 1 VIEW: Date: 10/10/17 HISTORY: Ventilated patient. COMPARISON: Chest radiograph from prior day. FINDINGS: The patient is intubated with endotracheal tube tip in similar position to the prior examination, wit h tip below the clavicles, although poorly seen. Enteric tube is in place with tip below diaphragm, b ut out of field of view. Layering bilateral effusions. There are multiple air space opacities throughout both lungs. Prominent interstitial lung marking. Pulmonary metastasis and adenopathy. IMPRESSION: Similar examination of the chest. POS: [facility]
[2017-10-10] MEDS: Morphine 4 MG/ML VIAL SLOW IVP PRN ×3 (09:03→10:32)
[2017-10-10] MEDS: Lorazepam 2 MG/ML VIAL SLOW IVP PRN (09:06)
--- NOTE | 2017-10-10 09:58 | PRG ---
DATE OF SERVICE: 10/10/2017 SUBJECTIVE: Mr. Lorenzana is unresponsive currently. The family has decided they wish comfort care only. They wish to have him removed from the ventilator. PHYSICAL EXAMINATION: VITAL SIGNS: Blood pressure 104/64, pulse in the high 90s, it is regular. LUNGS: Clear. CARDIAC: Tachycardic for rest. ABDOMEN: Soft and nontender. ASSESSMENT: 1. Metastatic cancer. 2. Coronary artery disease. 3. Paroxysmal atrial fibrillation. PLAN: The patient's family has decided they wish comfort care only. The plan is to extubate today a nd do not resuscitate.
[2017-10-10] MEDS ORDERED: Lorazepam 2 MG/ML VIAL SLOW IVP PRN (10:06)
--- NOTE | 2017-10-10 14:11 | PRG ---
DATE OF SERVICE: 10/10/2017 SERVICE: Pulmonary Medicine. INTERVAL HISTORY: The patient's family was under the impression that they were going to be meeting with Dr. Scott and withdrawing of her first thing in the morning. Nobody relayed this directly to Dr. Scott unfortunately. As such, he was not available at this exact moment. The family became a little upset and requested someone else to write an order to extubate to comfort measures. It is my understanding that the family has had multiple conversations over the course of the past couple of weeks about palliative care. Ultimately, the decision was made yesterday to transition to comfort care today and the family is ready at this moment to make that transition. I put him on spontaneous breathing trial briefly. On a spontaneous breathing trial, he pulled very poor volumes and developed hypoxemia fairly quickly. As such, it is my suspicion that the patient is going to be passing away fairly quickly. He was previously lucid until this morning. He got a little bit agitated and ended up getting a couple doses of medications. Currently, he is breathing comfortably on the ventilator and did not have severe agitation during his brief spontaneous breathing trial. I reaffirmed with the entire family with the plan was to transition over to comfort care only, to pull the tube out of the patient, and to keep him comfortable with medications if they are necessary to prevent him from having shortness of breath, anxiety, or struggling. They are aware that he will be passing away today or over the next couple of days depending on how long he continued to breathe on for. I have discussed this with the patient's and multiple family members who are present at bedside. As such, we will make that transition to comfort care at this time. PHYSICAL EXAMINATION: VITAL SIGNS: Afebrile, pulse 99, blood pressure 115/66, respirations 36, saturation 92% on 40% FiO2 and a PEEP of 5. HEENT: Normocephalic, atraumatic. Sclerae are white. Conjunctivae pink. Oral and nasal mucosa is moist and without lesions. LUNGS: Decent air entry. Crackles are present. There is a prolonged expiratory phase, but I do not appreciate wheezing or rhonchi. HEART: Normal rate, regular. ABDOMEN: Soft, nontender, nondistended. Bowel sounds are positive. MUSCULOSKELETAL: No cyanosis or clubbing. There is no pitting in the bilateral lower extremities. NEUROLOGIC: Grossly nonfocal. LABORATORY DATA: WBC 14.2, hemoglobin 12.1, platelets 236,000. PH 7.19, pCO2 of 55, pO2 of 54. Creatinine 0.97 and stable. Potassium 5.5. Basic metabolic profile is otherwise essentially stable or unremarkable. Urinalysis is negative. Bronchial washings from the 12th were growing Pseudomonas. Blood cultures x2 are unremarkable. IMAGING: Chest x-ray demonstrates endotracheal tube is in good position. Enteric tube courses below the level of the diaphragm and out of the field of view. Bilateral layering pleural effusions are present as well as bilateral airspace opacifications and prominent interstitial markings, consistent with possible volume overload. Cephalization is also noted. Previous sternotomy is present. Multiple overlying wires are identified. ASSESSMENT: 1. Acute hypoxic respiratory failure. 2. Healthcare-associated pneumonia, secondary to Pseudomonas. 3. Widely metastatic non-small cell lung cancer. PLAN: Per patient's family decision, we will be transitioning over to comfort care today. All medications will be discontinued. All laboratories and studies will be discontinued. We will put him on morphine and Ativan every 15 minutes if he needs it for comfort measures only. We will proceed with extubation when the family is ready. is expected during this hospital stay. Critical Care will continue to follow. I discussed the plan with Dr. Scott, and he is ok with proceeding with this plan. Critical care time: 30 minutes. MTDD
--- NOTE | 2017-10-10 16:09 | DS ---
DATE OF ADMISSION: 09/30/2017 DATE OF : 10/10/2017 CAUSE OF : 1. Acute hypoxic respiratory failure. 2. Bronchogenic pneumonia. 3. Advanced metastatic adenocarcinoma of the lung. SECONDARY DIAGNOSES AT THE TIME OF : 1. Atrial fibrillation with rapid ventricular response. 2. Chronic obstructive pulmonary disease. 3. Coronary artery disease. 4. Diabetes mellitus, type 2. 5. History of colon cancer. 6. Hypertension. 7. Malignant pleural effusion. CONSULTATIONS: In-house, 1. Pulmonary Critical Care, Dr. Orr and Dr. Rhodes. 2. Cardiology, Dr. Abdi. PROCEDURES DONE IN THE HOSPITAL: Include, 1. Multiple chest x-rays. 2. Fiberoptic intubation and bronchoscopy on 10/02/2017. 3. Extubation and subsequent reintubation on 10/05/2017. HISTORY OF PRESENT ILLNESS: Mr. Lorenzana was a very pleasant 77-year-old male with known history of metastatic lung cancer with malignant pleural effusion, who was recently discharged from [facility] facility in August after having a PleurX catheter placed for persistent malignant left pleural e ffusion by Dr. Haas. He came back to the emergency room on 09/30/2017 with complaints of worsening shortness of breath despite using home oxygen. He initially required CPAP upon presentation and was admitted to [facility] and Pulmonary Medicine was consulted. It was thought that is acute hypoxic respirat ory failure secondary to COPD exacerbation. There was also suspicion of pneumonia, as he had leukocy tosis and chest x-ray findings suggestive of same, and he was started on empiric IV antibiotics. He was also somewhat hypotensive upon presentation. Please see admission history and physical for formerly [facility] er details. HOSPITAL COURSE: Pulmonary and Cardiology were consulted. Dr. Scott saw the patient the next day up on his admission. The patient unfortunately got worse, requiring intubation. The bronchoalveolar la vage during bronchoscopy was done at the time of intubation. This came back positive for Pseudomonas . He was attempted to be extubated, but developed hypoxia and was reintubated. After that, he remai manuela un-weanable. He was also seen by Cardiology, as he developed rapid atrial fibrillation given his history of atrial fibrillation. He was started on amiodarone drip, which was continued. The patient unfortunately did not improve with any intervention. Ventilatory support was continued u ntil the family decided this was not in line with the patient's wishes as expressed earlier. Multipl e family discussions were done between the family and Palliative Care and Pulmonary Medicine team and myself. Eventually, the family decided for comfort care only. He was made a DNR, and earlier this morning, he was terminally extubated. He shortly afterwards. He was seen by Dr. Rhodes prior to extubation when the decision was made. I discussed his care after his with his family, who have no further questions for me at this ti me. Christin pronounced the patient at 10:47 a.m.
--- NOTE | 2017-10-10 19:39 | EKG ---
Test Reason : STAT Blood Pressure : / mmHG Vent. Rate : 088 BPM Atrial Rate : 088 BPM P-R Int : 000 ms QRS Dur : 110 ms QT Int : 342 ms P-R-T Axes : 046 -08 173 degrees QTc Int : 413 ms Normal sinus rhythm Low voltage QRS Abnormal ECG When compared with ECG of 30-AUG-2017 19:49, No significant change was found Confirmed by NGUYỄN GABRIEL (2) on 10/10/2017 7:39:17 PM Referred By: Confirmed By:NGUYỄN GABRIEL
--- NOTE | 2017-10-10 19:41 | EKG ---
Test Reason : STAT Blood Pressure : / mmHG Vent. Rate : 152 BPM Atrial Rate : 086 BPM P-R Int : 000 ms QRS Dur : 094 ms QT Int : 286 ms P-R-T Axes : 000 -19 222 degrees QTc Int : 454 ms Atrial fibrillation with rapid ventricular response Anterior infarct , age undetermined Marked ST abnormality, possible inferior subendocardial injury Abnormal ECG When compared with ECG of 01-OCT-2017 18:19, (Unconfirmed) Significant changes have occurred Confirmed by NGUYỄN GABRIEL (2) on 10/10/2017 7:40:46 PM Referred By: Confirmed By:NGUYỄN GABRIEL
[2017-10-10 20:48] VITALS: TEMP 98.7
--- NOTE | 2017-10-12 10:43 | PQF ---
FILIPPO SEXTON SALIM NOORJIBHAI MD [id number] [facility]- B10 [id number] CLINICAL DOCUMENTATION CLARIFICATION FORM: POST DISCHARGE Addendum to original discharge summary date: ____ Late entry note date: __ DATE: 10/12/2017 ATTN: DR. MULLIGAN Please exercise your independent, professional judgment in responding to the clarification form. Clinical indicators are provided on the bottom of this form for your review Please check appropriate box(es): [ x ] Sepsis due to: (Pna, UTI, gangrenous gall bladder, etc.) _GNR pneumonia__ Due to: [ ] Device (please specify) [ ] Implant [ ] Graft [ ] Infusion [ ] SIRS due to non-infectious process (please specify etiology) [ x ] with organ dysfunction [ ] without organ dysfunction [ x ] Severe sepsis with acute organ dysfunction of: _acute respiratory failure_ (Examples: respiratory failure, encephalopathy, acute kidney failure, other) [ ] Septic Shock [ ] Localized infection without sepsis [ ] Other diagnosis [ ] Unable to determine In addition, please specify: Present on Admission (POA): [ x ] Yes [ ] No [ ] Unable to determine For continuity of documentation, please document condition throughout progress notes and discharge summary. Thank You. CLINICAL INDICATORS - SIGNS / SYMPTOMS / LABS: VITALS: BP: 90/63, PULSE:63, RR:26, TEMP:97.7, O2 SAT 61% ON ROOM AIR & 100% ON CPAP H&P: TACHYPNEIC, HYPOTENSIVE SUSPECTED PNEUMONIA 3-19 PULSE 105; RESP 31, WBC 13 3-20 PULSE 103; RESP 21, WBC 14.2 PN 3-19 - BILATERAL BRONCHOPNEUMONIA - GRAM NEGATIVE RISK FACTORS: BRONCHOPNEUMONIA A/C RESPIRATORY FAILURE WITH HYPOXIA TREATMENTS: VENT COMFORT CARE ANTIBIOTICS (This form is maintained as a part of the permanent medical record) 2014 [email or web address]. All Rights Reserved Char Weems, [place], [email or web address] [phone] LUIS ENRIQUE
== END 2017-10-10 11:28 | disposition expired | DRG 870 ==
LOC: SCSER 11:53 → IMCU/EMU 13:39 → CCU 10-02 08:43
PROVIDERS: ADMIT Internal Medicine; ATTEND Internal Medicine
PROC: 5A09457 Assistance with Respiratory Ventilation, 24-96 Consecutive Hours, Continuous Positive Airway Pressure (ICD-10-PCS; 2017-09-30)
PROC: 0BJ08ZZ Inspection of Tracheobronchial Tree, Via Natural or Artificial Opening Endoscopic (ICD-10-PCS; principal; 2017-10-02)
PROC: 5A1955Z Respiratory Ventilation, Greater than 96 Consecutive Hours (ICD-10-PCS; 2017-10-02)
PROC: 0BH17EZ Insertion of Endotracheal Airway into Trachea, Via Natural or Artificial Opening (ICD-10-PCS; 2017-10-02)
PROC: 0BH17EZ Insertion of Endotracheal Airway into Trachea, Via Natural or Artificial Opening (ICD-10-PCS; 2017-10-05)
DX: A41.9 Sepsis, unspecified organism (principal); J96.21 Acute and chronic respiratory failure with hypoxia; J15.6 Pneumonia due to other Gram-negative bacteria; J91.0 Malignant pleural effusion; J81.1 Chronic pulmonary edema; J44.0 Chronic obstructive pulmonary disease with (acute) lower respiratory infection; J44.1 Chronic obstructive pulmonary disease with (acute) exacerbation; C79.9 Secondary malignant neoplasm of unspecified site; K56.7 Ileus, unspecified; E87.1 Hypo-osmolality and hyponatremia; I47.1 Supraventricular tachycardia; I50.42 Chronic combined systolic (congestive) and diastolic (congestive) heart failure; C34.90 Malignant neoplasm of unspecified part of unspecified bronchus or lung; C34.32 Malignant neoplasm of lower lobe, left bronchus or lung; E88.09 Other disorders of plasma-protein metabolism, not elsewhere classified; E87.5 Hyperkalemia; R65.20 Severe sepsis without septic shock; I11.0 Hypertensive heart disease with heart failure; I48.0 Paroxysmal atrial fibrillation; Z99.81 Dependence on supplemental oxygen; E11.9 Type 2 diabetes mellitus without complications; T46.4X5A Adverse effect of angiotensin-converting-enzyme inhibitors, initial encounter; I25.10 Atherosclerotic heart disease of native coronary artery without angina pectoris; Z95.1 Presence of aortocoronary bypass graft; E78.5 Hyperlipidemia, unspecified; Z85.038 Personal history of other malignant neoplasm of large intestine; Z87.891 Personal history of nicotine dependence; E55.9 Vitamin D deficiency, unspecified; Z51.5 Encounter for palliative care; Y95 Nosocomial condition; Z66 Do not resuscitate; E66.9 Obesity, unspecified; Z68.31 Body mass index [BMI] 31.0-31.9, adult; D53.9 Nutritional anemia, unspecified
CPT/HCPCS: 36415; 36416; 71045; 71046; 80048; 80053; 81001; 82553; 82805; 83690; 83735; 83880; 84100; 84484; 85025; 87040; 87070; 87077; 87186; 87205; 93005; 93010; 94002; 94003; 94640; 94660; 94760; 96365; 96367; 96375; A4216; J0282; J0456; J0692; J0696; J1650; J1940; J1956; J2060; J2250; J2270; J2405; J2704; J2765; J2920; J3010; J7050; J7070; J7620; P9045